=== PATIENT | female | born 1940 | race Caucasian/White ===

== ENCOUNTER 2019-06-20 08:11 | Emergency (ER) | payer MEDICARE, OTHER ==
[2019-06-20 08:22] VITALS: BP 106/51; PULSE 72; RESP 16; TEMP 98.2
--- NOTE | 2019-06-20 08:40 | ED ---
General Adult HPI - General Source: patient, RN notes reviewed Mode of arrival: wheelchair Limitations: no limitations <Antelmo Leonard - Last Filed: 06/20/19 08:40> <Fco Beltran - Last Filed: 06/20/19 11:10> - General Chief complaint: Skin/Abscess/Foreign Body Stated complaint: Abcess on back Time Seen by Provider: 06/20/19 08:21 - History of Present Illness Initial comments: 78-year-old female with a past medical history of breast cancer, diabetes, hypertension presents to the emergency department for a chief complaint of abscess. Patient states that for the past 4 days she has had an abscess on the left side of her upper back. States that her doctor put her on Bactrim which she has been on for about 48 hours. Patient states that when she woke up this morning she noticed it was draining. Patient states that she does have an appointment scheduled with the surgeon in [place] as she is from this area. However since it was draining wanted to be evaluated today. She denies fevers or chills. Denies any constitutional symptoms. Patient is here in this area for holiday. Patient has no other complaints at this time including shortness of breath, chest pain, abdominal pain, nausea or vomiting, headache, or visual changes. (Antelmo Leonard) - Related Data Previous Rx's Medication Instructions Recorded Cephalexin [Keflex] 500 mg PO Q6HR 10 Days #40 cap 06/20/19 Allergies Allergy/AdvReac Type Severity Reaction Status Date / Time ampicillin Allergy Rash/Hives Verified 06/20/19 08:14 Review of Systems ROS Other: All systems not noted in ROS Statement are negative. <Antelmo Leonard - Last Filed: 06/20/19 08:40> ROS Other: All systems not noted in ROS Statement are negative. <Fco Beltran - Last Filed: 06/20/19 11:10> ROS Statement: Those systems with pertinent positive or pertinent negative responses have been documented in the HPI. Past Medical History Past Medical History: Cancer, Diabetes Mellitus, Hypertension, Pneumonia Additional Past Medical History / Comment(s): Left breast History of Any Multi-Drug Resistant Organisms: None Reported Past Surgical History: Adenoidectomy, Breast Surgery, Hysterectomy, Orthopedic Surgery, Tonsillectomy Additional Past Surgical History / Comment(s): partial hysterectomy Past Psychological History: No Psychological Hx Reported Smoking Status: Never smoker Past Alcohol Use History: None Reported Past Drug Use History: None Reported <Antelmo Leonard - Last Filed: 06/20/19 08:40> General Exam Limitations: no limitations General appearance: alert, in no apparent distress Head exam: Present: atraumatic, normocephalic, normal inspection Eye exam: Present: normal appearance, PERRL, EOMI. Absent: scleral icterus, conjunctival injection, periorbital swelling ENT exam: Present: normal exam, mucous membranes moist Neck exam: Present: normal inspection, full ROM. Absent: tenderness, meningismus, lymphadenopathy Respiratory exam: Present: normal lung sounds bilaterally. Absent: respiratory distress, wheezes, rales, rhonchi, stridor Cardiovascular Exam: Present: regular rate, normal rhythm, normal heart sounds. Absent: systolic murmur, diastolic murmur, rubs, gallop, clicks GI/Abdominal exam: Present: soft, normal bowel sounds. Absent: distended, tenderness, guarding, rebound, rigid Back exam: Present: other (patient has a 4 cm x 4 cm abscess on L upper back, this does have mild surrounding erythema. significant amount of purulent drainage expelled.) <Antelmo Leonard - Last Filed: 06/20/19 08:40> Course <Fco Beltran - Last Filed: 06/20/19 11:10> Vital Signs 06/20/19 06/20/19 08:13 08:51 Temperature 98.2 F 98.2 F Pulse Rate 72 72 Respiratory 16 16 Rate Blood Pressure 106/51 106/51 O2 Sat by Pulse 96 96 Oximetry - Reevaluation(s) Reevaluation #1: 06/20/19 11:09 PA supervision: I personally did evaluate this case with the physician team assistant. She did have a abscess on the left side of her back which was drained in the emergency department. She will be following up with her doctor. I do agree with the assessment and plan. (Fco Beltran) Medical Decision Making <Antelmo Leonard - Last Filed: 06/20/19 08:40> - Medical Decision Making Abscess left upper back noted. Patient has been on Bactrim for about 2 days. I did apply pressure to the abscess in a significant amount of purulent drainage was expelled. Culture pending. She'll also be started on Keflex as she does have some erythema surrounding the abscess for possible cellulitic infection. Patient does not have any fevers or constitutional symptoms. Patient is here for vacation for the ving. She is following with her primary care provider through [place] for this. I will forward the culture results to this physician. She is also following up with the surgeon in this area. I did discuss continuing to keep this appointment has been may want to biopsy this area. Discussed that if she has any worsening symptoms including fevers or constitutional symptoms she is to return to the emergency department. (Antelmo Leonard) Disposition Is patient prescribed a controlled substance at d/c from ED?: No Time of Disposition: 08:37 <Antelmo Leonard - Last Filed: 06/20/19 08:40> <Fco Beltran - Last Filed: 06/20/19 11:10> Clinical Impression: Abscess Disposition: HOME SELF-CARE Condition: Good Instructions (If sedation given, give patient instructions): Abscess (ED) Additional Instructions: Please take Keflex in addition to Bactrim. Keep warm compresses on the area. As discussed we did obtain a culture here today. Please follow-up with primary care in 1-2 days for recheck. Follow-up with surgeon at your scheduled appointment as well. Return to the emergency department if you have any w orsening symptoms or fevers Prescriptions: Cephalexin [Keflex] 500 mg PO Q6HR 10 Days #40 cap Referrals: Nonstaff,Physician [Primary Care Provider] - 1-2 days
== END 2019-06-20 08:51 | disposition home or self-care (01) ==
LOC: EC 08:11
DX: L02.212 Cutaneous abscess of back [any part, except buttock and flank] (principal); Z88.0 Allergy status to penicillin; Z85.3 Personal history of malignant neoplasm of breast; Z98.890 Other specified postprocedural states
CPT/HCPCS: 87070; 87205; 99283

== ENCOUNTER → 2019-12-10 | Outpatient (CLI) | payer MEDICARE, OTHER ==
[2019-12-10 11:24] LABS: HGB 13.2 gm/dL (11.4-16.0); MCH 30.2 pg (25.0-35.0); MCHC 32.9 g/dL (31.0-37.0); MCV 91.8 fL (80.0-100.0); Mean Platelet Volume 7.4; Platelet Count 353 k/uL (150-450); RBC 4.36 m/uL (3.80-5.40); RDW 13.6 % (11.5-15.5); WBC 6.6 k/uL (3.8-10.6)
[2019-12-10 11:46] LABS: ALT 15 U/L (4-34); AST 23 U/L (14-36); African American GFR (CKD) >90 (>60 ml/min/1.73 sqM); Albumin 4.1 g/dL (3.5-5.0); Alkaline Phosphatase 62 U/L (38-126); Anion Gap 11 mmol/L; Blood Urea Nitrogen 18 mg/dL (7-17); Carbon Dioxide 29 mmol/L (22-30); Chloride 104 mmol/L (98-107); Glucose 157 mg/dL (74-99); Non-African American GFR(CKD) 82 (>60 ml/min/1.73 sqM); Potassium 3.8 mmol/L (3.5-5.1); Sodium 144 mmol/L (137-145); Total Bilirubin 0.9 mg/dL (0.2-1.3); Total Protein 7.1 g/dL (6.3-8.2)
[2019-12-10 12:33] LABS: Partial Thromboplastin Time 25.9 sec (22.0-30.0); Prothrombin Time 10.3 sec (9.0-12.0)
== END | disposition home or self-care (01) ==
LOC: LABPAT 10:00
PROVIDERS: ATTEND Orthopaedic Surgery
DX: Z01.818 Encounter for other preprocedural examination (principal); Z01.812 Encounter for preprocedural laboratory examination; Z11.59 Encounter for screening for other viral diseases
CPT/HCPCS: 36415; 80053; 85027; 85610; 85730; 86850; 86900; 86901; 87070; 87635

== ENCOUNTER 2019-12-13 11:09 | Day surgery (SDC) | payer MEDICARE, OTHER ==
[2019-12-09 12:05] VITALS: BMI 27.6
[~2019-12-13 11:09] MED LIST: ACETAMINOPHEN TAB 500 MG TAB PO ONE; GABAPENTIN 300 MG CAP PO ONE; MELOXICAM 7.5 MG TAB PO ONE; TRANEXAMIC ACID 1,000 MG in SODIUM CHLORIDE 0.9% 100 ML IVPB ONE
[2019-12-13] MEDS ORDERED: LACTATED RINGERS 1,000 ML IV ONE (11:42)
[2019-12-13] MEDS ORDERED: ONDANSETRON 4 MG/2 ML VIAL IVP ONE (12:06)
[2019-12-13] MEDS ORDERED: DEXAMETHASONE SOD PHOS (MDV) 100 MG/10 ML VIAL IVP ONE (12:07)
[2019-12-13 12:13] LABS: Glucose,Whole Blood 75 mg/dL (75-99)
[2019-12-13] MEDS ORDERED: HYDROcodone/APAP 7.5-325MG 1 EACH TAB PO PRN ×2 (13:17)
[2019-12-13] MEDS ORDERED: ONDANSETRON 4 MG/2 ML VIAL IVP PRN (13:17)
[2019-12-13] MEDS ORDERED: NALOXONE 0.4 MG/ML 1 ML VIAL IV PRN (13:17)
[2019-12-13] MEDS ORDERED: HYDROmorphone 0.5 MG/0.5 ML SYRINGE IVP PRN ×3 (13:17)
[2019-12-13] MEDS ORDERED: ACETAMINOPHEN TAB 325 MG TAB PO PRN (13:17)
[2019-12-13] MEDS ORDERED: MAGNESIUM HYDROXIDE 2,400 MG/10 ML CUP PO PRN (13:17)
[2019-12-13] MEDS ORDERED: traMADol 50 MG TAB PO PRN (13:17)
[2019-12-13] MEDS ORDERED: DIAZEPAM 5 MG TAB PO PRN (13:17)
[2019-12-13] MEDS ORDERED: TEMAZEPAM 15 MG CAP PO PRN (13:17)
[2019-12-13] MEDS ORDERED: fentaNYL (PF) 50 MCG/ML 2 ML AMP ONE (13:34)
[2019-12-13] MEDS ORDERED: KETAMINE 10 MG/ML 20 ML VIAL ONE (13:34)
[2019-12-13] MEDS ORDERED: TRANEXAMIC ACID 1,000 MG/10 ML VIAL ONE (13:34)
[2019-12-13] MEDS ORDERED: SODIUM CHLORIDE 0.9% IRRIG 1,000 ML BTL IRRIGATION ONE (13:34)
[2019-12-13] MEDS ORDERED: HEPARIN SODIUM,PORCINE 10,000 UNIT/ML 1 ML VIAL ONE (13:34)
[2019-12-13] MEDS ORDERED: PROPOFOL 10 MG/ML 20 ML VIAL IV ONE (13:34)
[2019-12-13] MEDS ORDERED: MIDAZOLAM 2 MG/2 ML VIAL ONE (13:34)
[2019-12-13] MEDS ORDERED: SODIUM CHLORIDE 0.9% 100 ML BAG ONE (13:34)
[2019-12-13] MEDS: ROPIVACAINE 246.25 MG, EPINEPHrine 0.5 MG, KETOROLAC 30 MG, cloNIDine HCL/PF 80 MCG, WA... MISCELLANE ONE ×10 (14:03→14:46)
[2019-12-13] MEDS ORDERED: ceFAZolin 3,000 MG in SODIUM CHLORIDE 0.9% IRRIGATIO 3,000 ML IRRIGATION ONE (14:04)
--- NOTE | 2019-12-13 15:01 | P.OP ---
Date of Procedure: 12/13/19 Preoperative Diagnosis: Severe osteoarthritis right hip Postoperative Diagnosis: Severe osteoarthritis right hip Procedure(s) Performed: Right total hip arthroplasty with a direct anterior approach Implants: Robin and nephew Polarstem size 5 standard Robin & Nephew R3, 3 hole acetabular shell, 48 mm Robin & Nephew reflection 6.5 mm cancellus screw, 20 mm 2 Robin & Nephew R3, XLPE 20 acetabular liner Robin & Nephew Oxinium femoral head 32 m, +0 All components were press-fit. The articulation is Oxinium on polyethylene. Anesthesia: spinal Surgeon: Garret Corrales Hide Inspector #1: Shravan Siu Estimated Blood Loss (ml): 120 (52 mL returned with Cell Saver) Pathology: other (Femoral head) Condition: stable Disposition: PACU Indications for Procedure: After failure of conservative treatment we discussed the surgical and nonsurgical treatment options at length. Patient wishes to proceed with a total hip arthroplasty with a direct anterior approach. Complications specific to this procedure were discussed at length, including but not limited to infection, leg length discrepancy, dislocation, and nerve injury. Covid-19 was also discussed at length with the patient, and they are aware of the current policies and procedures. The patient was given the option of delaying surgery, but they elect to proceed knowing these risks. Patient is aware of all these complications and informed consent was obtained Operative Findings: The operative findings are consistent with severe osteoarthritis the right hip Description of Procedure: Patient was seen and evaluated in the preoperative area, consent was reviewed, and the surgical site was marked with a skin marker. Patient was then brought to the operating room and given prophylactic antibiotics intravenously. 1 g of Tranexamic acid was also given. A spinal anesthetic was administered by the anesthesia department. The patient was then placed on the [place] table with the bony prominences well-padded. The hip area was then prepped and draped in usual sterile fashion. A universal timeout was then performed, which confirmed the patient's name, surgical site, ALLERGIES, and procedure being performed. Next the incision site was located at 1 cm distal and 1 cm lateral to the anterior superior iliac spine. The skin and subcutaneous tissues were sharply incised. Incision was carefully dissected down to the fascia overlying the tensor fascia ruth muscle. This fascia was then incised in line with the incision. Next, using blunt finger dissection, the tensor fascia ruth muscle was dissected off its investing fascia. The muscle was then carefully retracted laterally with a cobra retractor over the lateral neck of the femur. Next, the circumflex vessels were identified and cauterized using the AquaMantis device. The anterior hip capsule was then exposed. The capsule was then opened and an inverted T fashion. Cobra retractors were then placed intracapsularly. The proximal femur was then visualized. The femoral neck was then osteotomized appropriate level above the lesser trochanter. Small amount of traction was placed with the [place] table. A small wedge of bone was then removed from the remaining femoral head. Next, using a corkscrew femoral head was easily removed from the acetabulum. On gross visual inspection, the femoral head had complete loss of articular cartilage in multiple periarticular osteophytes. Attention was then turned to the acetabulum. the acetabulum was exposed and any remaining labrum was excised. Sequential reaming of the acetabulum was performed using fluoroscopic guidance. When the appropriate size was reached, a trial was then placed. The position and fit of the trial was checked with fluoroscopy. The trial was then removed. Then, using fluoroscopic guidance, the final implant was impacted at 20 of anteversion and 40 of abduction, and fully seated in the acetabulum. 2 screws were then placed in the acetabulum. Again fluoroscopy was used to check position of the screws. Next, the liner was then impacted, with a 20 elevated liner located in the anterior superior quadrant. Component locking was confirmed. Attention was then directed to the femur. With the aid of the [place] table, the femur was externally rotated to approximately 130, extended, and abducted under the opposite leg. A side hook was then placed under the proximal femur, and the side hook elevator was used to elevate the proximal femur. Retractors were then placed. A capsular release was performed, as well as a release of the conjoined tendon, which afforded excellent visualization of the proximal femur. Next, a box osteotome was used to lateralize the proximal femur. A baggage handling supervisor was then used to locate the femoral canal. Sequential broaching was then performed with appropriate size which afforded excellent fixation in the proximal femur. A trial was then placed with appropriate head and neck, and the hip was gently reduced with the aid of the [place] table. Fluoroscopy was then used to check position of the components, as well as to ensure equal leg lengths. The hip was then gently dislocated and the trials were then removed. Final implants were then impacted and the hip was again reduced. Final fluoroscopic x-rays confirmed that the components were in anatomic position, as well as equal leg lengths. The hip was also taken through range of motion, and found to be stable. The hip was then copiously irrigated with antibiotic solution with pulsatile lavage. The hip was then irrigated with Irrisept solution. The soft tissues were then injected with a ropivacaine solution, which consisted of 246.25 mg of ropivacaine, 0.5 mg of epinephrine, 30 mg of Toradol, 80 g of clonidine, and 48.45 mL of sterile water, for a total of 100 mL of fluid injected. A second dose of 1 g of Tranexamic acid was also given. the fascia was then closed with 2-0 strata fix suture. The subcutaneous tissue was closed with 3-0 Vicryl. The subcuticular tissue was closed with 3-0 strata fix suture. The skin was then closed with Dermabond glue and a sterile silver dressing. The patient was then transferred to the recovery room in stable condition. The day care assistant CHRISTOPHER Somers was required due to the complexity of surgery, and the need for skilled certified surgical first assistant for positioning, draping, exposure, retraction, and closure of the wound.
--- NOTE | 2019-12-13 15:36 | XR ---
EXAMINATION TYPE: XR Hip Limited RT, FL guidance operating room DATE OF EXAM: 12/13/2019 CLINICAL HISTORY: Fluoroscopic documentation during right hip arthroplasty. TECHNIQUE: Fluoroscopy. COMPARISON: None. FINDINGS: Fluoroscopic guidance was provided during procedure performed by Dr. Corrales. A total of 58 seconds of fluoroscopic time was utilized during the procedure and with spot image was acquired d uring right hip arthroplasty. IMPRESSION: As Above.
--- NOTE | 2019-12-13 16:01 | XR ---
EXAMINATION TYPE: XR Hip Limited RT DATE OF EXAM: 12/13/2019 CLINICAL HISTORY: Right hip pain and osteoarthritis. TECHNIQUE: Single AP portable view of right hip is obtained immediately postoperatively. COMPARISON: None. FINDINGS: Metallic hardware from right hip arthroplasty is seen and appears satisfactory in alignment and position. There is evidence of recent surgery with subcutaneous gas noted laterally. IMPRESSION: Metallic hardware from right hip arthroplasty is satisfactory in position.
[2019-12-13] MEDS: LACTATED RINGERS 1,000 ML IV SCH (16:32)
[2019-12-13 16:58] LABS: Glucose,Whole Blood 154 mg/dL (75-99)
[2019-12-13] MEDS: INSULIN ASPART (NovoLOG) 100 UNIT/ML VIAL SQ SCH ×2 (17:12→21:28)
[2019-12-13 20:57] LABS: Glucose,Whole Blood 272 mg/dL (75-99)
[2019-12-13] MEDS ORDERED: SENNOSIDES-DOCUSATE SODIUM 1 EACH TAB PO SCH (21:00)
[2019-12-13] MEDS: ASPIRIN 325 MG TAB PO SCH (21:25)
[2019-12-13] MEDS: CALCIUM CARB-VIT D 500MG-200UN 1 EACH TAB PO SCH (21:25)
[2019-12-13] MEDS: GABAPENTIN 300 MG CAP PO SCH (21:25)
--- NOTE | 2019-12-13 23:46 | CONS ---
CONSULTATION I am covering for Dr. Grande. DATE OF SERVICE: 12/13/2019 REASON FOR CONSULTATION: Advice regarding diabetes and other multiple medical issues requested by Dr. Corrales. HISTORY OF PRESENT ILLNESS: This 79-year-old woman with a past medical history of multiple medical problems including diabetes, hypertension, history of pneumonia, history of left breast cancer, history of breast surgery, adenoidectomy, being followed by Dr. Grande in the outpatient setting, was living in [facility]. The patient underwent right total hip joint arthroplasty with direct anterior approach for severe DJD by Dr. Corrales. Patient being closely monitored. There is no history of fever, rigors or chills. No history of headache, loss of consciousness or seizures. Blood sugars fluctuated anywhere from 115-158 according to her at home during the past 2 weeks and the sugar has been 76 today. There is no history of fever, rigors or chills. PAST MEDICAL: Diabetes type 2, hypertension, history of pneumonia, left breast cancer. MEDICATIONS: Home medications are: 1. Glipizide metformin 2.5/500 1 p.o. daily. 2. Vitamin B complex 1 p.o. daily. 3. KCl 10 mEq p.o. q.a.m. 4. Fish oil 1 p.o. daily. 5. Multivitamins 1 p.o. daily. 6. Metinex 2 mg p.o. b.i.d. 7. Zestoretic 1 tablet p.o. daily. 8. Glucosamine 1 tablet p.o. b.i.d. 9. Neurontin 300 mg p.o. b.i.d. 10.Calcium with vitamin D 1 p.o. b.i.d. 11.Vitamin C 500 mg p.o. daily. 12.[place] 7.5 mg 1-2 tablets q.6h p.r.n. 13.Aspirin 320 mg p.o. b.i.d. ALLERGIES: BEE VENOM AND AMPICILLIN. FAMILY HISTORY: No history of heart disease or strokes in the family. SOCIAL HISTORY: No history of smoking or alcohol intake. REVIEW OF SYSTEMS: ENT: Diminished vision. Diminished hearing. Cardiovascular is no angina or palpitations. RESPIRATORY: No cough. GI no nausea or vomiting. no dysuria. NERVOUS SYSTEM: No numbness or weakness. ALLERGY/IMMUNOLOGY: No asthma or hayfever. MUSCULOSKELETAL as mentioned earlier. HEMATOLOGY/ONCOLOGY: No history of anemia. ENDOCRINE: Diabetes. CONSTITUTIONAL: As mentioned earlier. DERMATOLOGY negative. RHEUMATOLOGY: Negative. PSYCHIATRIC: As mentioned earlier. PHYSICAL EXAMINATION: Alert and oriented x3. Pulse is 89. Blood pressure 140/87, respirations 16, temperature 97.8, pulse ox 94% on room air. HEENT: Conjunctivae normal. Oral mucosa moist. NECK is no jugular venous distention. No carotid bruit. No lymph node enlargement. CARDIOVASCULAR system: S1, S2 muffled. No S3, no S4. RESPIRATION: Breath sounds diminished. There are no rhonchi. No crackles. ABDOMEN: Soft, obese, nontender. No mass. LEGS status post right hip arthroplasty. NERVOUS SYSTEM: Higher functions as mentioned. Moves all 4 limbs. No focal motor or sensory deficits. LYMPHATICS: No lymph nodes palpable in the neck, axillae or groin. SKIN: No ulcer, rash or bleeding. JOINTS: No active deforming arthropathy. LABS: Glucose 75, 154 and preop labs CBC within normal limits. Coags are normal. Chemistry also appears reviewed. ASSESSMENT: 1. Status post right total hip joint arthroplasty for severe degenerative joint disease. 2. Diabetes type 2. 3. Hypertension. 4. History of pneumonia. 5. History of left breast cancer. 6. History of adenoidectomy. 7. FULL CODE. RECOMMENDATIONS AND DISCUSSION: This 79-year-old woman who presented with multiple complex medical issues, at this time I recommend to continue current medications. Resume the home medication. Accu-Cheks AC and insulin scale and DVT prophylaxis, proton pump inhibitors. Otherwise pain management per Orthopedic surgery. We will follow the patient closely with you. Patient may be asked to follow up with Dr. Grande closely after discharge. Thank you Dr. Corrales for letting us participate in the care of this patient. 1. History of. MMODL / IJN: [id number] /
[2019-12-14] MEDS: LACTATED RINGERS 1,000 ML IV SCH (05:20)
[2019-12-14 07:12] LABS: Basophils % (A) 0 %; Eosinophils # (A) 0.1 k/uL (0-0.7); Eosinophils % (A) 0 %; HCT 35.2 % (34.0-46.0); HGB 11.5 gm/dL (11.4-16.0); Lymphocytes # (A) 1.1 k/uL (1.0-4.8); Lymphocytes % (A) 6 %; MCHC 32.7 g/dL (31.0-37.0); MCV 91.8 fL (80.0-100.0); Mean Platelet Volume 7.5; Monocytes # (A) 1.3 k/uL (0-1.0); Monocytes % (A) 8 %; Neutrophils # (A) 14.6 k/uL (1.3-7.7); Neutrophils % (A) 85 %; Platelet Count 314 k/uL (150-450); RBC 3.84 m/uL (3.80-5.40); RDW 13.1 % (11.5-15.5); WBC 17.1 k/uL (3.8-10.6)
[2019-12-14 07:14] LABS: Glucose,Whole Blood 163 mg/dL (75-99)
[2019-12-14] MEDS ORDERED: PANTOPRAZOLE 40 MG TABLET PO SCH (07:30)
[2019-12-14] MEDS: ASPIRIN 325 MG TAB PO SCH (07:39)
[2019-12-14] MEDS: GABAPENTIN 300 MG CAP PO SCH (07:39)
[2019-12-14] MEDS: CALCIUM CARB-VIT D 500MG-200UN 1 EACH TAB PO SCH (07:39)
[2019-12-14] MEDS: INSULIN ASPART (NovoLOG) 100 UNIT/ML VIAL SQ SCH ×2 (07:40→12:07)
[2019-12-14] MEDS ORDERED: LISINOPRIL-HCTZ 20-25 MG 1 EACH TAB PO SCH (09:00)
[2019-12-14] MEDS ORDERED: NON FORMULARY DRUG (Vitamin B Complex [Vitamin B Complex] 1 EACH) PO SCH (09:00)
[2019-12-14] MEDS ORDERED: metFORMIN 500 MG TAB PO SCH (09:00)
[2019-12-14] MEDS ORDERED: POTASSIUM CHLORIDE ER 10 MEQ TAB.ER.PRT PO SCH (09:00)
--- NOTE | 2019-12-14 11:03 | P.DS ---
Providers Expected date of discharge: 12/14/19 Attending physician: Garret Corrales Consults: 12/13/19 13:17 Consult Physician Routine Consulting Provider: Marcelino Grande Consult Reason/Comments: post op med management Do you want consulting provider notified?: Yes Primary care physician: Marcelino Grande - Discharge Diagnosis(es) (1) S/P total hip arthroplasty Patient was admitted to the OR on 12/13/2019 to undergo a right total hip arthroplasty. She had failed conservative measures as an outpatient and desired to proceed with elective surgery after given informed consent. She underwent the above procedure which she tolerated well without complication. Postoperative hospital course has remained without complication. On day of discharge she is afebrile, vital signs stable, labs within acceptable ranges, tolerating by mouth meds and diet, voiding without difficulty, positive flatus, denies abdominal pain or calf pain, pain is controlled on oral pain medication and has no new complaints. Wound is benign, neurovascular status is intact, calf is soft and nontender, abdomen soft and nontender. Review of systems is negative for numbness, tingling, fever, chills, chest pain, shortness of breath, nausea, vomiting, dizziness, headaches, slurred speech or other Current Visit: Yes Status: Acute Priority: Medium Procedures: RTHA Patient Condition at Discharge: Good Plan - Discharge Summary Discharge Rx Participant: Yes New Discharge Prescriptions: New Aspirin 325 mg PO BID #60 tab HYDROcodone/APAP 7.5-325MG [Dora 7.5-325] 1 - 2 each PO Q6HR PRN #56 tab PRN Reason: Pain No Action [place]-3 Fatty Acids/Fish Oil [Fish Oil 1,000 mg Softgel] 1 each PO DAILY Glucos Sul 2Kcl/MSM/Chond/C/Mn [Glucosamine Chondroitin Cap] 1 each PO BID Vitamin B Complex 1 each PO DAILY Calcium Carbonate/Vitamin D3 [Calcium 600-D3 20Mcg(800 Unit)] 1 each PO BID Ascorbic Acid [Vitamin C] 500 mg PO DAILY glipiZIDE/METFORMIN HCL [glipiZIDE/METFORMIN HCL 2.5-500 mg] 1 each PO DAILY Lisinopril-Hctz 20-25 mg [Zestoretic 20-25] 1 tab PO DAILY Potassium Chloride 10 meq PO QAM Gabapentin [Neurontin] 300 mg PO BID Multivit-Min/Iron/Folic/Lutein [Centrum Silver Women Tablet] 1 each PO DAILY Metanx 2 mg PO BID Discharge Medication List Ascorbic Acid [Vitamin C] 500 mg PO DAILY 12/09/19 [History] Calcium Carbonate/Vitamin D3 [Calcium 600-D3 20Mcg(800 Unit)] 1 each PO BID 12/09/19 [History] Gabapentin [Neurontin] 300 mg PO BID 12/09/19 [History] Glucos Sul 2Kcl/MSM/Chond/C/Mn [Glucosamine Chondroitin Cap] 1 each PO BID 12/09/19 [History] Lisinopril-Hctz 20-25 mg [Zestoretic 20-25] 1 tab PO DAILY 12/09/19 [History] Metanx 2 mg PO BID 12/09/19 [History] Multivit-Min/Iron/Folic/Lutein [Centrum Silver Women Tablet] 1 each PO DAILY 12/09/19 [History] [place]-3 Fatty Acids/Fish Oil [Fish Oil 1,000 mg Softgel] 1 each PO DAILY 12/09/19 [History] Potassium Chloride 10 meq PO QAM 12/09/19 [History] Vitamin B Complex 1 each PO DAILY 12/09/19 [History] glipiZIDE/METFORMIN HCL [glipiZIDE/METFORMIN HCL 2.5-500 mg] 1 each PO DAILY 12/09/19 [History] Aspirin 325 mg PO BID #60 tab 12/13/19 [Rx] HYDROcodone/APAP 7.5-325MG [Dora 7.5-325] 1 - 2 each PO Q6HR PRN #56 tab 12/13/19 [Rx] Follow up Appointment(s)/Referral(s): [facility] [NON-STAFF] - Garret Corrales DO [Doctor of Osteopathic Medicine] - 10 Days Activity/Diet/Wound Care/Special Instructions: Keep wound clean and dry Take meds as directed Follow-up with Dr. Corrales in office Weight bear as tolerated May shower in 3 days if no bleeding Discharge Disposition: HOME WITH HOME HEALTH SERVICES
[2019-12-14 11:31] LABS: Glucose,Whole Blood 112 mg/dL (75-99)
[2019-12-14 11:47] VITALS: BP 92/46; PULSE 72; RESP 17; TEMP 98.4
[2019-12-14] MEDS ORDERED: MULTIVITAMINS, THERA 1 EACH TAB PO SCH (12:00)
--- NOTE | 2019-12-14 18:26 | PN ---
PROGRESS NOTE DATE OF SERVICE: 12/14/2019 I am covering for Dr. Grande. This 79-year-old woman was admitted with right hip arthroplasty, is improving significantly. No chest pain. No palpitations. No fever. No shortness of breath. PHYSICAL EXAMINATION: Alert and oriented x3. Pulse 72, blood pressure 92/46, respiration 17, temperature 98.4, pulse ox 98% on room air. HEENT: Conjunctivae normal. Oral mucosa moist. NECK: No jugular venous distention. No lymph node enlargement. CARDIOVASCULAR: S1, S2. RESPIRATORY: Diminished breath sounds at the bases. Bilateral scattered rhonchi and crackles. ABDOMEN: Soft, nontender. LEGS: Status post right hip arthroplasty. NERVOUS SYSTEM: No focal deficits. LABS: WBC 17.2, hemoglobin 11.4. ASSESSMENT: 1. Status post right total knee arthroplasty for severe degenerative joint disease. 2. Diabetes type 2. 3. Hypertension. 4. History of pneumonia. 5. History of left breast cancer. 6. History of adenoidectomy. 7. FULL CODE. RECOMMENDATIONS AND DISCUSSION: Recommend to continue current medications, continue symptomatic treatment. Orthopedic Surgery is planning discharge for the patient so I would recommend resume the home medications, follow up with Dr. Grande in 1-2 weeks or p.r.n. The rest of the recommendations per Orthopedic surgery. Further recommendations to follow. MMODL / IJN: [id number] /
== END 2019-12-14 15:08 | disposition home health service (06) ==
LOC: OR 11:09 → 5NMEDONC 15:36 → OR 12-14 15:08
PROVIDERS: ATTEND Orthopaedic Surgery
DX: M16.11 Unilateral primary osteoarthritis, right hip (principal); I10 Essential (primary) hypertension; E10.9 Type 1 diabetes mellitus without complications; R26.81 Unsteadiness on feet; Z97.3 Presence of spectacles and contact lenses; Z85.3 Personal history of malignant neoplasm of breast; Z88.0 Allergy status to penicillin; Z98.49 Cataract extraction status, unspecified eye; Z96.651 Presence of right artificial knee joint; Z98.890 Other specified postprocedural states; Z87.01 Personal history of pneumonia (recurrent); Z82.49 Family history of ischemic heart disease and other diseases of the circulatory system; Z79.84 Long term (current) use of oral hypoglycemic drugs; Z79.899 Other long term (current) drug therapy
CPT/HCPCS: 97110; 97161; 85025; 73501; 27130; J0171; J0690 ×3; J2405; J1885; J1100; J2795; J0735; J1170; 36415; 86850; 86891; 86900; 86901

== ENCOUNTER 2020-06-19 05:53 | Inpatient (IN) | payer MEDICARE, OTHER ==
[2020-06-19] MEDS ORDERED: SODIUM CHLORIDE 0.9% 500 ML 500 ML IV STA (06:25)
--- NOTE | 2020-06-19 06:45 | ED ---
General Adult HPI - General Source: patient, EMS, RN notes reviewed Limitations: no limitations <Antelmo Leonard - Last Filed: 06/19/20 09:34> <Edita Koroma - Last Filed: 06/24/20 12:17> - General Chief complaint: Shortness of Breath Stated complaint: SOB, covid + Time Seen by Provider: 06/19/20 06:05 - History of Present Illness Initial comments: 79-year-old female with a past medical history of hypertension, diabetes mellitus, PNA presents to the emergency room for a chief complaint of shortness of breath. Patient reports that she was told by her friends that care for her that she looks more short of breath. Patient does not necessarily feel short of breath. Patient is COVID positive, and was tested 7 days ago. Patient states she started with a dry cough the day before. States her temperature had gone up to 100 max. Patient states she feels about the same however her friends were concerned she was getting more short of breath so decided to come in and be evaluated. She denies chest pain. Denies any additional fevers. Does admit her cough is still persistent.Patient has no other complaints at this time including chest pain, abdominal pain, nausea or vomiting, headache, or visual changes. (Antelmo Leonard) - Related Data Home Medications Medication Instructions Recorded Confirmed Ascorbic Acid [Vitamin C] 500 mg PO DAILY 12/09/19 06/19/20 Calcium Carbonate/Vitamin D3 1 tab PO BID 12/09/19 06/19/20 [Calcium 600-D3 20Mcg(800 Unit)] Gabapentin [Neurontin] 300 mg PO BID 12/09/19 06/19/20 Glucos Sul 2Kcl/MSM/Chond/C/Mn 1 tab PO BID 12/09/19 06/19/20 [Glucosamine Chondroitin Cap] Multivit-Min/Iron/Folic/Lutein 1 tab PO DAILY 12/09/19 06/19/20 [Centrum Silver Women Tablet] Champion-3 Fatty Acids/Fish Oil [Fish 1 cap PO DAILY 12/09/19 06/19/20 Oil 1,000 mg Softgel] Potassium Chloride 10 meq PO QAM 12/09/19 06/19/20 Vitamin B Complex 1 tab PO DAILY 12/09/19 06/19/20 glipiZIDE/METFORMIN HCL 1 tab PO DAILY 12/09/19 06/19/20 [glipiZIDE/METFORMIN HCL 2.5-500 mg] Metanx Supplement 2 cap PO BID 06/19/20 06/19/20 Previous Rx's Medication Instructions Recorded Atorvastatin [Lipitor] 40 mg PO HS #30 tab 06/23/20 Levofloxacin [Levaquin] 500 mg PO DAILY #7 tab 06/23/20 Metoprolol Tartrate [Lopressor] 12.5 mg PO BID #60 tab 06/23/20 Tamsulosin [Flomax] 0.4 mg PO PC-BRKFST #30 cap.er.24h 06/23/20 Zinc Sulfate [Orazinc] 220 mg PO DAILY 30 Days #30 cap 06/23/20 dexAMETHasone [Hexadrol] 6 mg PO DAILY #18 tab 06/23/20 lisinopriL [Zestril] 5 mg PO DAILY #30 tab 06/23/20 Allergies Allergy/AdvReac Type Severity Reaction Status Date / Time bee venom protein (honey bee) Allergy Severe Swelling Verified 06/19/20 10:31 ampicillin Allergy Rash/Hives Verified 06/19/20 10:31 Review of Systems ROS Other: All systems not noted in ROS Statement are negative. <Antelmo Leonard P - Last Filed: 06/19/20 09:34> ROS Other: All systems not noted in ROS Statement are negative. <Edita Koroma - Last Filed: 06/24/20 12:17> ROS Statement: Those systems with pertinent positive or pertinent negative responses have been documented in the HPI. Past Medical History Past Medical History: Cancer, Diabetes Mellitus, Hypertension, Pneumonia Additional Past Medical History / Comment(s): Left breast History of Any Multi-Drug Resistant Organisms: None Reported Past Surgical History: Adenoidectomy, Breast Surgery, Hysterectomy, Orthopedic Surgery, Tonsillectomy Additional Past Surgical History / Comment(s): partial hysterectomy Past Psychological History: No Psychological Hx Reported Smoking Status: Never smoker Past Alcohol Use History: None Reported Past Drug Use History: None Reported <Antelmo Leonard P - Last Filed: 06/19/20 09:34> General Exam Limitations: no limitations General appearance: alert, in no apparent distress Head exam: Present: atraumatic, normocephalic, normal inspection Eye exam: Present: normal appearance, PERRL, EOMI. Absent: scleral icterus, conjunctival injection, periorbital swelling ENT exam: Present: normal exam, mucous membranes moist Neck exam: Present: normal inspection, full ROM. Absent: tenderness, meningismus, lymphadenopathy Respiratory exam: Present: normal lung sounds bilaterally. Absent: respiratory distress, wheezes, rales, rhonchi, stridor Cardiovascular Exam: Present: regular rate, normal rhythm, normal heart sounds. Absent: systolic murmur, diastolic murmur, rubs, gallop, clicks GI/Abdominal exam: Present: soft, normal bowel sounds. Absent: distended, te nderness, guarding, rebound, rigid <Antelmo Leonard P - Last Filed: 06/19/20 09:34> Course Vital Signs 06/19/20 06/19/20 06/19/20 05:54 06:01 10:00 Temperature 99.1 F Pulse Rate 87 84 Pulse Rate [ Medical Health Researcher ] Respiratory 18 18 18 Rate Blood Pressure 138/94 154/69 Blood Pressure [Right Arm] O2 Sat by Pulse 96 98 Oximetry 06/19/20 06/19/20 06/19/20 11:17 15:34 15:59 Temperature Pulse Rate 82 89 Pulse Rate [ Medical Health Researcher ] Respiratory 16 20 Rate Blood Pressure 111/55 134/89 Blood Pressure [Right Arm] O2 Sat by Pulse 96 96 95 Oximetry 06/19/20 06/19/20 06/19/20 16:00 16:27 16:33 Temperature 99.9 F H 99.9 F H Pulse Rate 93 Pulse Rate [ 91 91 Medical Health Researcher ] Respiratory 18 20 20 Rate Blood Pressure Blood Pressure 138/62 138/62 [Right Arm] O2 Sat by Pulse 93 L 97 97 Oximetry 06/19/20 06/19/20 06/19/20 17:00 18:00 19:00 Temperature Pulse Rate 96 93 96 Pulse Rate [ Medical Health Researcher ] Respiratory 16 18 18 Rate Blood Pressure 132/92 146/79 Blood Pressure [Right Arm] O2 Sat by Pulse 96 97 Oximetry 06/19/20 20:02 Temperature 100.3 F H Pulse Rate Pulse Rate [ Medical Health Researcher ] Respiratory Rate Blood Pressure Blood Pressure [Right Arm] O2 Sat by Pulse Oximetry EKG Findings - EKG Comments: EKG Findings:: Normal sinus rhythm, ventricular rate 80, DC interval 134, QTC 495 <Antelmo Leonard P - Last Filed: 06/19/20 09:34> Medical Decision Making - Lab Data Result diagrams: 06/19/20 06:43 06/19/20 06:43 <Antelmo Leonard - Last Filed: 06/19/20 09:34> - Lab Data Result diagrams: 06/23/20 08:20 06/23/20 08:20 <Edita Koroma - Last Filed: 06/24/20 12:17> - Medical Decision Making Vitals are stable. Patient initially on oxygen however when this was removed she is satting anywhere from 92-97% on room air. Minimal shortness of breath. No chest pain. CBC unremarkable. CMP unremarkable. Troponin is elevated at 3.9. EKG nonischemic and patient deny any ACS symptoms. Chest CTA no evidence for acute pulmonary embolism. There is dependent atelectasis bilateral lower lungs suspicious for developing peripheral left lower lobe acute infiltrate would correlate with history of Covid 19 infection. Given positive Covid 19 infection 7 days ago patient was not started on antibiotics at this time. No fever, normal white count, pneumonia is likely viral. Patient will be admitted for cardiology consultation and trending troponin. She was started on low-dose heparin as directed by Dr. Koroma. (Antelmo Leonard) I was available for consultation in the emergency department. The history and physical exam were done by the midlevel provider. I was consulted for this patients care. I reviewed the case with the midlevel provider and based on th eir presentation of the patient, I agree with the assessment, medical decision making and plan of care as documented. Chart was dictated using [employer] dictation software. Attempts were made to correct any dictation errors however some typographical errors may persist. Patient seen during the Covid-19 pandemic. (Edita Koroma) - Lab Data Lab Results 06/19/20 06/19/20 06/19/20 Range/Units 06:43 06:43 06:43 WBC 5.6 (3.8-10.6) k/uL RBC 4.53 (3.80-5.40) m/uL Hgb 13.0 (11.4-16.0) gm/dL Hct 39.6 (34.0-46.0) % MCV 87.4 (80.0-100.0) fL MCH 28.7 (25.0-35.0) pg MCHC 32.8 (31.0-37.0) g/dL RDW 13.9 (11.5-15.5) % Plt Count 321 (150-450) k/uL MPV 7.4 Neutrophils % 65 % Lymphocytes % 20 % Monocytes % 10 % Eosinophils % 1 % Basophils % 1 % Neutrophils # 3.7 (1.3-7.7) k/uL Lymphocytes # 1.2 (1.0-4.8) k/uL Monocytes # 0.6 (0-1.0) k/uL Eosinophils # 0.1 (0-0.7) k/uL Basophils # 0.1 (0-0.2) k/uL PT 10.5 (9.0-12.0) sec INR 1.0 (<1.2) APTT 28.3 (22.0-30.0) sec D-Dimer 0.69 H (<0.60) mg/L FEU Sodium 136 L (137-145) mmol/L Potassium 4.4 (3.5-5.1) mmol/L Chloride 100 (98-107) mmol/L Carbon Dioxide 29 (22-30) mmol/L Anion Gap 7 mmol/L BUN 31 H (7-17) mg/dL Creatinine 0.95 (0.52-1.04) mg/dL Est GFR (CKD-EPI)AfAm 65 (>60 ml/min/1.73 sqM) Est GFR (CKD-EPI)NonAf 57 (>60 ml/min/1.73 sqM) Glucose 126 H (74-99) mg/dL Plasma Lactic Acid Julio (0.7-2.0) mmol/L Calcium 9.4 (8.4-10.2) mg/dL Magnesium 2.0 (1.6-2.3) mg/dL Total Bilirubin 1.3 (0.2-1.3) mg/dL AST 120 H (14-36) U/L ALT 35 H (4-34) U/L Alkaline Phosphatase 42 (38-126) U/L Troponin I (0.000-0.034) ng/mL C-Reactive Protein 33.3 H (<10.0) mg/L Total Protein 7.1 (6.3-8.2) g/dL Albumin 3.8 (3.5-5.0) g/dL 06/19/20 06/19/20 Range/Units 06:43 06:43 WBC (3.8-10.6) k/uL RBC (3.80-5.40) m/uL Hgb (11.4-16.0) gm/dL Hct (34.0-46.0) % MCV (80.0-100.0) fL MCH (25.0-35.0) pg MCHC (31.0-37.0) g/dL RDW (11.5-15.5) % Plt Count (150-450) k/uL MPV Neutrophils % % Lymphocytes % % Monocytes % % Eosinophils % % Basophils % % Neutrophils # (1.3-7.7) k/uL Lymphocytes # (1.0-4.8) k/uL Monocytes # (0-1.0) k/uL Eosinophils # (0-0.7) k/uL Basophils # (0-0.2) k/uL PT (9.0-12.0) sec INR (<1.2) APTT (22.0-30.0) sec D-Dimer (<0.60) mg/L FEU Sodium (137-145) mmol/L Potassium (3.5-5.1) mmol/L Chloride (98-107) mmol/L Carbon Dioxide (22-30) mmol/L Anion Gap mmol/L BUN (7-17) mg/dL Creatinine (0.52-1.04) mg/dL Est GFR (CKD-EPI)AfAm (>60 ml/min/1.73 sqM) Est GFR (CKD-EPI)NonAf (>60 ml/min/1.73 sqM) Glucose (74-99) mg/dL Plasma Lactic Acid Julio 1.4 (0.7-2.0) mmol/L Calcium (8.4-10.2) mg/dL Magnesium (1.6-2.3) mg/dL Total Bilirubin (0.2-1.3) mg/dL AST (14-36) U/L ALT (4-34) U/L Alkaline Phosphatase (38-126) U/L Troponin I 3.920 H* (0.000-0.034) ng/mL C-Reactive Protein (<10.0) mg/L Total Protein (6.3-8.2) g/dL Albumin (3.5-5.0) g/dL Disposition Is patient prescribed a controlled substance at d/c from ED?: No Time of Disposition: 09:35 <Antelmo Leonard - Last Filed: 06/19/20 09:34> <Edita Koroma - Last Filed: 06/24/20 12:17> Clinical Impression: Elevated troponin, Shortness of breath, COVID-19 Disposition: ADMITTED IP TO THIS HOSP Condition: Fair
[2020-06-19 07:06] LABS: Basophils # (A) 0.1 k/uL (0-0.2); Basophils % (A) 1 %; Eosinophils # (A) 0.1 k/uL (0-0.7); Eosinophils % (A) 1 %; HCT 39.6 % (34.0-46.0); Lymphocytes # (A) 1.2 k/uL (1.0-4.8); Lymphocytes % (A) 20 %; MCH 28.7 pg (25.0-35.0); MCHC 32.8 g/dL (31.0-37.0); MCV 87.4 fL (80.0-100.0); Mean Platelet Volume 7.4; Monocytes # (A) 0.6 k/uL (0-1.0); Monocytes % (A) 10 %; Neutrophils # (A) 3.7 k/uL (1.3-7.7); Neutrophils % (A) 65 %; Platelet Count 321 k/uL (150-450); RBC 4.53 m/uL (3.80-5.40); RDW 13.9 % (11.5-15.5); WBC 5.6 k/uL (3.8-10.6)
[2020-06-19 07:20] LABS: Albumin 3.8 g/dL (3.5-5.0); C Reactive Protein 33.3 mg/L (<10.0); Calcium 9.4 mg/dL (8.4-10.2); Total Bilirubin 1.3 mg/dL (0.2-1.3); Total Protein 7.1 g/dL (6.3-8.2)
[2020-06-19 07:38] LABS: Potassium 4.4 mmol/L (3.5-5.1)
--- NOTE | 2020-06-19 07:42 | XR ---
EXAMINATION TYPE: XR chest 1V portable DATE OF EXAM: 06/19/2020 COMPARISON: NONE HISTORY: Shortness of breath. Covid positive TECHNIQUE: Single AP portable frontal upright view of the chest is obtained. FINDINGS: [id number] Reticular interstitial changes bilaterally favor chronic fibrosis. No sita picious focal airspace opacity, pleural effusion, or pneumothorax seen bilaterally. The cardiac silh ouette size is mildly enlarged. The osseous structures are intact. IMPRESSION: Mild cardiomegaly with chronic parenchymal changes, no suspicious focal infiltrate.
[2020-06-19] MEDS ORDERED: ASPIRIN 325 MG TAB PO STA (08:01)
[2020-06-19 08:04] LABS: Partial Thromboplastin Time 28.3 sec (22.0-30.0); Prothrombin Time 10.5 sec (9.0-12.0)
[2020-06-19 08:06] LABS: D-Dimer 0.69 mg/L FEU (<0.60)
--- NOTE | 2020-06-19 09:12 | CT ---
EXAMINATION TYPE: CT chest angio for PE DATE OF EXAM: 06/19/2020 COMPARISON: Chest x-ray earlier today. HISTORY: SOB CT DLP: 448 mGycm Automated exposure control for dose reduction was used. CONTRAST: CT Chest for pulmonary embolism performed with with IV Contrast, patient injected with 90 mL of Isovu e 370. FINDINGS: LUNGS: Elevated left hemidiaphragm with small posterior medial diaphragmatic hernia sagittal image 10 6 for reference. Dependent atelectasis in the bilateral bases. Small focus of groundglass opacity wit h reticulation in the periphery of the left lower lobe. Right lung is clear. No pleural effusion or p neumothorax seen bilaterally. MEDIASTINUM: There is satisfactory enhancement of the pulmonary artery and its branches, there is no CT evidence for pulmonary embolism. Enlarged main pulmonary artery of 3.3 cm axial image 60. There is left hilar adenopathy for reference 1.4 x 1.3 cm lymph node coronal image 110. There is enlarged sub carinal 2.2 x 1.4 cm lymph node axial image 60. Enlarged right hilar lymph nodes axial image 74. Foca l dense coronary artery calcification proximal LAD axial image 71. No cardiomegaly or pericardial eff usion is seen. Satisfactory enhancement of the thoracic aorta without aneurysm or dissection. Mild t o moderate left atrial dilatation. Mild left ventricular dilatation. OTHER: Underlying scoliosis. Exaggerated thoracic kyphosis. Moderate multilevel spurring in the spin e IMPRESSION: 1. No CT evidence for acute pulmonary embolism. 2. Dependent atelectasis bilateral lower lungs. Suspicion for developing peripheral left lower lobe a cute infiltrate would correlate with history of covid 19 infection. Underlying pulmonary artery hyper tension felt present. Abnormal thoracic adenopathy noted. Follow-up is advised.
[2020-06-19] MEDS ORDERED: HEPARIN SODIUM,PORCINE 5,000 UNIT/ML 1 ML VIAL IV PRN (09:17)
[2020-06-19] MEDS ORDERED: HEPARIN SODIUM,PORCINE 5,000 UNIT/ML 1 ML VIAL IV ONE (09:17)
[2020-06-19] MEDS ORDERED: NALOXONE 0.4 MG/ML 1 ML VIAL IV PRN (09:30)
[2020-06-19] MEDS: SODIUM CHLORIDE 0.9% 1,000 ML IV SCH (10:23)
[2020-06-19] MEDS: HEPARIN SOD,PORK IN 0.45% NACL 25,000 UNIT in 0.45% NACL 1 250ML.BAG IV SCH (10:23)
--- NOTE | 2020-06-19 14:19 | P.HPIM ---
History of Present Illness this is a pleasant 79 years old female with multiple medical problems as below including diabetes, hypertension. She is a patient of Dr. Grande. Presents because of dyspnea. Associated with dry cough. Patient felt he had a fever at home. She has a diagnosis of Covid infection about one week ago. Patient with no chest pain patient currently is lying comfortable in bed no respiratory distress. She denies history of smoking vitals are stable, saturating 96% on 2 L oxygen via nasal cannula Labs showing unremarkable CBC, INR, BMP and electrolytes. Liver enzymes slightly elevated with AST 120 and ALT 35. Troponin is elevated at 3.9 and 3.0 EKG showing normal sinus rhythm at [address]-T changes. CTA of the chest: No pulmonary embolism enlarged left hilar lymph node and subcarinal lymph nodes and right hilar lymph nodes. Possible left lower lobe infiltrate In the emergency room patient was started on aspirin, heparin drip and normal saline at 75 mL Review of Systems CONSTITUTIONAL: No fever, no malaise, no fatigue. HEENT: No recent visual problems or hearing problems. Denied any sore throat. CARDIOVASCULAR: No orthopnea, PND, no palpitations, no syncope. PULMONARY: No shortness of breath, no cough, no hemoptysis. GASTROINTESTINAL: No diarrhea, no nausea, no vomiting, no abdominal pain. Normoactive bowel sounds. NEUROLOGICAL: No headaches, no weakness, no numbness. HEMATOLOGICAL: Denies any bleeding or petechiae. GENITOURINARY: Denies any burning micturition, frequency, or urgency. MUSCULOSKELETAL/RHEUMATOLOGICAL: Denies any joint pain, swelling, or any muscle pain. ENDOCRINE: Denies any polyuria or polydipsia. Past Medical History Past Medical History: Cancer, Diabetes Mellitus, Hypertension, Pneumonia Additional Past Medical History / Comment(s): Left breast History of Any Multi-Drug Resistant Organisms: None Reported Past Surgical History: Adenoidectomy, Breast Surgery, Hysterectomy, Orthopedic Surgery, Tonsillectomy Additional Past Surgical History / Comment(s): partial hysterectomy Past Psychological History: No Psychological Hx Reported Smoking Status: Never smoker Past Alcohol Use History: None Reported Past Drug Use History: None Reported Medications and Allergies Home Medications Medication Instructions Recorded Confirmed Type Ascorbic Acid [Vitamin C] 500 mg PO DAILY 12/09/19 06/19/20 History Calcium Carbonate/Vitamin D3 1 tab PO BID 12/09/19 06/19/20 History [Calcium 600-D3 20Mcg(800 Unit)] Gabapentin [Neurontin] 300 mg PO BID 12/09/19 06/19/20 History Glucos Sul 2Kcl/MSM/Chond/C/Mn 1 tab PO BID 12/09/19 06/19/20 History [Glucosamine Chondroitin Cap] Lisinopril-Hctz 20-25 mg 1 tab PO DAILY 12/09/19 06/19/20 History [Zestoretic 20-25] Multivit-Min/Iron/Folic/Lutein 1 tab PO DAILY 12/09/19 06/19/20 History [Centrum Silver Women Tablet] Tiona-3 Fatty Acids/Fish Oil [Fish 1 cap PO DAILY 12/09/19 06/19/20 History Oil 1,000 mg Softgel] Potassium Chloride 10 meq PO QAM 12/09/19 06/19/20 History Vitamin B Complex 1 tab PO DAILY 12/09/19 06/19/20 History glipiZIDE/METFORMIN HCL 1 tab PO DAILY 12/09/19 06/19/20 History [glipiZIDE/METFORMIN HCL 2.5-500 mg] Metanx Supplement 2 cap PO BID 06/19/20 06/19/20 History Allergies Allergy/AdvReac Type Severity Reaction Status Date / Time bee venom protein (honey bee) Allergy Severe Swelling Verified 06/19/20 10:31 ampicillin Allergy Rash/Hives Verified 06/19/20 10:31 Physical Exam Vitals: Vital Signs Temp Pulse Resp BP Pulse Ox 06/19/20 11:17 82 16 111/55 96 06/19/20 10:00 84 18 154/69 98 06/19/20 06:01 18 06/19/20 05:54 99.1 F 87 18 138/94 96 Intake and Output 06/18/20 06/19/20 06/19/20 22:59 06:59 14:59 Other: Weight 86.183 kg GENERAL: The patient is alert and oriented x3, not in any acute distress. Well developed, well nourished. HEENT: Pupils are round and equally reacting to light. EOMI. No scleral icterus. No conjunctival pallor. Normocephalic, atraumatic. No pharyngeal erythema. No thyromegaly. CARDIOVASCULAR: S1 and S2 present. No murmurs, rubs, or gallops. PULMONARY: Chest is clear to auscultation, no wheezing or crackles. ABDOMEN: Soft, nontender, nondistended, normoactive bowel sounds. No palpable organomegaly. MUSCULOSKELETAL: No joint swelling or deformity. EXTREMITIES: No cyanosis, clubbing, or pedal edema. NEUROLOGICAL: Gross neurological examination did not reveal any focal deficits. SKIN: No rashes. No petechiae Results CBC & Chem 7: 06/19/20 06:43 06/19/20 06:43 Labs: Abnormal Lab Results - Last 24 Hours (Table) 06/19/20 06/19/20 06/19/20 Range/Units 06:43 06:43 06:43 D-Dimer 0.69 H (<0.60) mg/L FEU Sodium 136 L (137-145) mmol/L BUN 31 H (7-17) mg/dL Glucose 126 H (74-99) mg/dL AST 120 H (14-36) U/L ALT 35 H (4-34) U/L Troponin I 3.920 H* (0.000-0.034) ng/mL C-Reactive Protein 33.3 H (<10.0) mg/L 06/19/20 Range/Units 11:12 D-Dimer (<0.60) mg/L FEU Sodium (137-145) mmol/L BUN (7-17) mg/dL Glucose (74-99) mg/dL AST (14-36) U/L ALT (4-34) U/L Troponin I 3.090 H* (0.000-0.034) ng/mL C-Reactive Protein (<10.0) mg/L Assessment and Plan Assessment: Left lower lobe pneumonia, could be related to call with infection with left hilar lymphadenopathy Elevated troponin, rule out cardiac causes and disease Mildly elevated liver enzymes Diabetes mellitus Hypertension Plan: This is a pleasant 79 years old female who presents with left lower lobe pneumonia. With covid infection. And elevated troponin. Continue with ascorbic acid, zinc, and Lovenox. Consult pulmonary service. Follow-up recommendation by replenishment analyst. Continue with aspirin. Check echocardiogram Labs and medication were reviewed.. Continue same treatment. Continue with symptomatic treatment. Resume home medication. Monitor lytes and vitals. DVT and GI prophylaxis. Further recommendations depends on the clinical course of the patient DVT prophylaxis: On heparin drip GI Prophylaxis: Ppi Prognosis is guarded
[2020-06-19 16:43] LABS: Glucose,Whole Blood 123 mg/dL (75-99)
[2020-06-19] MEDS: ASCORBIC ACID 500 MG TAB PO SCH (17:35)
[2020-06-19 20:23] LABS: Appearance,Urine Clear (Clear); Bacteria,Urine Rare /hpf; Bilirubin,Urine Negative (Negative); Blood,Urine Trace (Negative); Color,Urine Yellow; Glucose,Urine (UA) Negative (Negative); Ketones,Urine Negative (Negative); Leukocyte Esterase,Urine Moderate (Negative); Mucus,Urine Rare /hpf; Nitrite,Urine Negative (Negative); Protein,Urine Trace (Negative); RBC,Urine 5 /hpf (0-5); Specific Gravity,Urine 1.036 (1.001-1.035); Squamous Epithelial Cell,Urine 1 /hpf (0-4); Urobilinogen,Urine <2.0 mg/dL (<2.0); WBC,Urine 21 /hpf (0-5)
[2020-06-19 20:48] LABS: Glucose,Whole Blood 141 mg/dL (75-99)
[2020-06-19] MEDS: ACETAMINOPHEN TAB 325 MG TAB PO PRN (21:05)
[2020-06-19] MEDS: GABAPENTIN 300 MG CAP PO SCH (21:06)
[2020-06-19] MEDS: INSULIN ASPART (NovoLOG) 100 UNIT/ML VIAL SQ SCH (21:06)
[2020-06-20] MEDS: SODIUM CHLORIDE 0.9% 1,000 ML IV SCH ×2 (01:25→10:25)
[2020-06-20 06:39] LABS: Glucose,Whole Blood 116 mg/dL (75-99)
[2020-06-20] MEDS: INSULIN ASPART (NovoLOG) 100 UNIT/ML VIAL SQ SCH ×4 (06:55→21:21)
[2020-06-20 07:54] LABS: Basophils # (A) 0.1 k/uL (0-0.2); Basophils % (A) 2 %; Eosinophils % (A) 1 %; HCT 34.8 % (34.0-46.0); HGB 11.7 gm/dL (11.4-16.0); Lymphocytes # (A) 0.9 k/uL (1.0-4.8); Lymphocytes % (A) 25 %; MCH 29.4 pg (25.0-35.0); MCHC 33.7 g/dL (31.0-37.0); MCV 87.4 fL (80.0-100.0); Mean Platelet Volume 7.5; Monocytes # (A) 0.4 k/uL (0-1.0); Monocytes % (A) 10 %; Neutrophils # (A) 2.2 k/uL (1.3-7.7); Neutrophils % (A) 59 %; Platelet Count 255 k/uL (150-450); RBC 3.98 m/uL (3.80-5.40); RDW 13.5 % (11.5-15.5); WBC 3.7 k/uL (3.8-10.6)
[2020-06-20] MEDS: ASCORBIC ACID 500 MG TAB PO SCH (08:54)
[2020-06-20] MEDS: ACETAMINOPHEN TAB 325 MG TAB PO PRN ×2 (08:54→17:42)
[2020-06-20] MEDS: GABAPENTIN 300 MG CAP PO SCH ×2 (08:54→21:21)
[2020-06-20] MEDS ORDERED: LEVOFLOXACIN 500MG-D5W PMX 500 MG in DEXTROSE/WATER 1 100ML.BAG IVPB SCH (10:00)
[2020-06-20] MEDS: HEPARIN SOD,PORK IN 0.45% NACL 25,000 UNIT in 0.45% NACL 1 250ML.BAG IV SCH (10:14)
[2020-06-20] MEDS: TAMSULOSIN 0.4 MG CAP.ER.24H PO SCH ×2 (10:14→10:25)
[2020-06-20] MEDS: METOPROLOL TARTRATE 12.5 MG TAB PO SCH ×2 (11:53→21:21)
[2020-06-20 12:02] LABS: Glucose,Whole Blood 94 mg/dL (75-99)
--- NOTE | 2020-06-20 13:30 | P.CRDCN ---
History of Present Illness Consult date: 06/20/20 History of present illness: CHIEF COMPLAINT: Abnormal troponins HISTORY OF PRESENT ILLNESS: This is an 79-year-old female who presented to the hospital secondary to shortness of breath. We have been asked to see the patient in consultation for abnormal troponins. Patient is positive for COVID. DIAGNOSTICS: EKG reveals sinus rhythm Chest xray mild cardiomegaly with chronic parenchymal changes, no suspicious focal infiltrate Laboratory data: WBC 3.7. Hemoglobin 11.7. Platelet count 255. D-dimer 0.69. Sodium 136. Potassium 4.4. BUN 31. Creatinine 0.95. Troponin 3.920. 3.090. 2.780. Current home cardiac medications include lisinopril hydrochlorothiazide 2025 milligrams daily REVIEW OF SYSTEMS: Thorough review of systems not completed secondary to limited evalua tion/examination due to Covid19 PHYSICAL EXAM: Thorough physical exam not completed secondary to limited evaluation/examination and due to Covid19 ASSESSMENT: Covid 19 Elevated troponins, suspect secondary to type II IL due to oxygen supply and demand mismatch Hypertension Diabetes mellitus PLAN: Obtain 2-D echo to assess cardiac structure and function Continue IV heparin Add aspirin 81 mg daily Add metoprolol 12.5 mg BID Further recommendations pending patient's course Nurse practitioner note has been reviewed by physician. Signing provider agrees with the documented findings, assessment, and plan of care. Past Medical History Past Medical History: Cancer, Diabetes Mellitus, Hypertension, Pneumonia Additional Past Medical History / Comment(s): Left breast History of Any Multi-Drug Resistant Organisms: None Reported Past Surgical History: Adenoidectomy, Breast Surgery, Hysterectomy, Orthopedic Surgery, Tonsillectomy Additional Past Surgical History / Comment(s): partial hysterectomy. right total hip replacement Past Anesthesia/Blood Transfusion Reactions: No Reported Reaction Past Psychological History: No Psychological Hx Reported Smoking Status: Never smoker Past Alcohol Use History: None Reported Past Drug Use History: None Reported - Past Family History Mother Family Medical History: No Reported History Father Family Medical History: No Reported History Sister(s) Family Medical History: Diabetes Mellitus Medications and Allergies Home Medications Medication Instructions Recorded Confirmed Type Ascorbic Acid [Vitamin C] 500 mg PO DAILY 12/09/19 06/19/20 History Calcium Carbonate/Vitamin D3 1 tab PO BID 12/09/19 06/19/20 History [Calcium 600-D3 20Mcg(800 Unit)] Gabapentin [Neurontin] 300 mg PO BID 12/09/19 06/19/20 History Glucos Sul 2Kcl/MSM/Chond/C/Mn 1 tab PO BID 12/09/19 06/19/20 History [Glucosamine Chondroitin Cap] Lisinopril-Hctz 20-25 mg 1 tab PO DAILY 12/09/19 06/19/20 History [Zestoretic 20-25] Multivit-Min/Iron/Folic/Lutein 1 tab PO DAILY 12/09/19 06/19/20 History [Centrum Silver Women Tablet] Zion-3 Fatty Acids/Fish Oil [Fish 1 cap PO DAILY 12/09/19 06/19/20 History Oil 1,000 mg Softgel] Potassium Chloride 10 meq PO QAM 12/09/19 06/19/20 History Vitamin B Complex 1 tab PO DAILY 12/09/19 06/19/20 History glipiZIDE/METFORMIN HCL 1 tab PO DAILY 12/09/19 06/19/20 History [glipiZIDE/METFORMIN HCL 2.5-500 mg] Metanx Supplement 2 cap PO BID 06/19/20 06/19/20 History Allergies Allergy/AdvReac Type Severity Reaction Status Date / Time bee venom protein (honey bee) Allergy Severe Swelling Verified 06/19/20 10:31 ampicillin Allergy Rash/Hives Verified 06/19/20 10:31 Physical Exam Vitals: Vital Signs Temp Pulse Pulse Resp BP BP Pulse Ox 06/20/20 11:53 98.3 F 84 18 124/54 94 L 06/20/20 08:00 98.3 F 76 18 115/63 98 06/20/20 03:41 98.4 F 84 19 129/72 96 06/20/20 01:25 98.6 F 06/20/20 00:00 99.7 F H 74 20 97/50 95 06/19/20 22:00 99.6 F 06/19/20 20:48 101.6 F H 98 18 126/74 97 06/19/20 20:02 100.3 F H 06/19/20 19:00 96 18 146/79 97 06/19/20 18:00 93 18 06/19/20 17:00 96 16 132/92 96 06/19/20 16:33 99.9 F H 91 20 138/62 97 06/19/20 16:27 99.9 F H 91 20 138/62 97 06/19/20 16:00 93 18 93 L 06/19/20 15:59 95 06/19/20 15:34 89 20 134/89 96 Intake and Output 06/19/20 06/20/20 06/20/20 22:59 06:59 14:59 Intake Total 948.341 Output Total 400 500 Balance -400 -500 948.341 Intake: IV 724 Heparin Sod,Pork in 0.45% 24 NaCl 25,000 unit In 0.45 % NaCl 1 250ml.bag @ 11.6 UNITS/KG/HR 9.997 mls/hr IV .Q24H OJ Rx#: [id number] Levofloxacin 500Mg-D5w 100 Pmx 500 mg In Dextrose/ Water 1 100ml.bag @ 100 mls/hr IVPB Q24H OJ Rx#: [id number] Sodium Chloride 0.9% 1, 600 000 ml @ 75 mls/hr IV . [id number] OJ Rx#:[id number] Intake, IV Titration 224.341 Amount Heparin Sod,Pork in 0.45% 224.341 NaCl 25,000 unit In 0.45 % NaCl 1 250ml.bag @ 11.6 UNITS/KG/HR 9.997 mls/hr IV .Q24H OJ Rx#: [id number] Output: Urine 400 500 Uretheral (Hdez) 400 Other: Voiding Method Indwelling Catheter Indwelling Catheter Indwelling Catheter Weight 86.183 kg 89.5 kg Results 06/20/20 07:02 06/19/20 06:43 Cardiac Enzymes 06/19/20 Range/Units 15:10 Troponin I 2.780 H* (0.000-0.034) ng/mL Coagulation 06/19/20 06/20/20 Range/Units 15:10 07:02 APTT 52.7 H 119.2 H* (22.0-30.0) sec CBC 06/20/20 Range/Units 07:02 WBC 3.7 L (3.8-10.6) k/uL RBC 3.98 (3.80-5.40) m/uL Hgb 11.7 (11.4-16.0) gm/dL Hct 34.8 (34.0-46.0) % Plt Count 255 (150-450) k/uL Current Medications Generic Name Dose Route Start Last Admin Trade Name Freq PRN Reason Stop Dose Admin Acetaminophen 650 mg 06/19/20 20:59 06/20/20 08:54 Acetaminophen Tab 325 Mg Tab PO 650 mg Q6HR PRN Administration Fever and/ or Pain Ascorbic Acid 1,000 mg 06/19/20 14:30 06/20/20 08:54 Ascorbic Acid 500 Mg Tab PO 1,000 mg DAILY OJ Administration Aspirin 81 mg 06/21/20 09:00 Aspirin 81 Mg PO DAILY OJ Gabapentin 300 mg 06/19/20 21:00 06/20/20 08:54 Gabapentin 300 Mg Cap PO 300 mg BID OJ Administration Heparin Sodium (Porcine) 0 unit 06/19/20 09:17 Heparin Sodium,Porcine 5,000 Unit/Ml 1 Ml Vial IV PER PROTOCOL PRN Low PTT Protocol Heparin Sodium/Sodium Chloride 250 mls @ 9.997 mls/hr 06/19/20 09:30 06/20/20 10:14 25,000 unit/ Sodium Chloride IV 8.6 units/kg/hr .Q24H OJ 7.412 mls/hr Administration Protocol 11.6 UNITS/KG/HR Sodium Chloride 1,000 mls @ 75 mls/hr 06/19/20 09:30 06/20/20 10:25 Saline 0.9% IV 75 mls/hr .[id number] OJ Administration Levofloxacin 500 mg/ IV 100 mls @ 100 mls/hr 06/20/20 10:00 06/20/20 10:14 Solution IVPB 100 mls/hr Q24H OJ Administration Insulin Aspart 0 unit 06/19/20 21:00 06/20/20 12:01 Insulin Aspart (Novolog) 100 Unit/Ml Vial SQ Not Given ACHS [facility] Protocol Metoprolol Tartrate 12.5 mg 06/20/20 10:30 06/20/20 11:53 Metoprolol Tartrate 12.5 Mg Tab PO 12.5 mg BID OJ Administration Naloxone HCl 0.2 mg 06/19/20 09:30 Naloxone 0.4 Mg/Ml 1 Ml Vial IV Q2M PRN Opioid Reversal Tamsulosin HCl 0.4 mg 06/20/20 07:30 06/20/20 10:25 Tamsulosin 0.4 Mg Cap.Er.24h PO 0.4 mg [id number] OJ Administration Intake and Output 06/19/20 06/20/20 06/20/20 22:59 06:59 14:59 Intake Total 948.341 Output Total 400 500 Balance -400 -500 948.341 Intake: IV 724 Heparin Sod,Pork in 0.45% 24 NaCl 25,000 unit In 0.45 % NaCl 1 250ml.bag @ 11.6 UNITS/KG/HR 9.997 mls/hr IV .Q24H OJ Rx#: [id number] Levofloxacin 500Mg-D5w 100 Pmx 500 mg In Dextrose/ Water 1 100ml.bag @ 100 mls/hr IVPB Q24H OJ Rx#: [id number] Sodium Chloride 0.9% 1, 600 000 ml @ 75 mls/hr IV . [id number] OJ Rx#:[id number] Intake, IV Titration 224.341 Amount Heparin Sod,Pork in 0.45% 224.341 NaCl 25,000 unit In 0.45 % NaCl 1 250ml.bag @ 11.6 UNITS/KG/HR 9.997 mls/hr IV .Q24H OJ Rx#: [id number] Output: Urine 400 500 Uretheral (Hdez) 400 Other: Voiding Method Indwelling Catheter Indwelling Catheter Indwelling Catheter Weight 86.183 kg 89.5 kg 06/20/20 07:02 06/19/20 06:43
[2020-06-20 16:57] LABS: Glucose,Whole Blood 108 mg/dL (75-99)
--- NOTE | 2020-06-20 19:38 | P.PN ---
Subjective this is a pleasant 79 years old female with multiple medical problems as below including diabetes, hypertension. She is a patient of Dr. Grande. Presents because of dyspnea. Associated with dry cough. Patient felt he had a fever at home. She has a diagnosis of Covid infection about one week ago. Patient with no chest pain patient currently is lying comfortable in bed no respiratory distress. She denies history of smoking vitals are stable, saturating 96% on 2 L oxygen via nasal cannula Labs showing unremarkable CBC, INR, BMP and electrolytes. Liver enzymes slightly elevated with AST 120 and ALT 35. Troponin is elevated at 3.9 and 3.0 EKG showing normal sinus rhythm at [address]-T changes. CTA of the chest: No pulmonary embolism enlarged left hilar lymph node and subcarinal lymph nodes and right hilar lymph nodes. Possible left lower lobe infiltrate In the emergency room patient was started on aspirin, heparin drip and normal saline at 75 mL 06/20/2020 This is a pleasant 79 years old female was admitted for left lower lobe pneumonia, also she has positive Covid test. She presents because of dyspnea a nd coughing, however at rest she's not in respiratory distress. She is saturating high 90s into her oxygen via nasal cannula. Risks of vitals are stable, patient with low-grade fever of 99.7 earlier Patient also was found to have high troponin and placed on heparin drip. [employer] [facility] evaluated the patient and continue with aspirin, metoprolol and echocardiogram Also patient with urinary retention, Hdez catheter was placed, UA is suspicious for infection and Levaquin was added for both pulmonary and UTI infection, patient is also ALLERGIC to penicillin. Flomax is admitted for urinary reten tion Review of System CONSTITUTIONAL: No fever, no malaise, no fatigue. HEENT: No recent visual problems or hearing problems. Denied any sore throat. CARDIOVASCULAR: No orthopnea, PND, no palpitations, no syncope. PULMONARY: No shortness of breath, no cough, no hemoptysis. GASTROINTESTINAL: No diarrhea, no nausea, no vomiting, no abdominal pain. Normoactive bowel sounds. NEUROLOGICAL: No headaches, no weakness, no numbness. HEMATOLOGICAL: Denies any bleeding or petechiae. Active Medications Generic Name Dose Route Start Last Admin Trade Name Freq PRN Reason Stop Dose Admin Acetaminophen 650 mg 06/19/20 20:59 11/29/20 17:42 Acetaminophen Tab 325 Mg Tab PO 650 mg Q6HR PRN Administration Fever and/ or Pain Ascorbic Acid 1,000 mg 06/19/20 14:30 06/20/20 08:54 Ascorbic Acid 500 Mg Tab PO 1,000 mg DAILY OJ Administration Aspirin 81 mg 06/21/20 09:00 Aspirin 81 Mg PO DAILY OJ Gabapentin 300 mg 06/19/20 21:00 06/20/20 08:54 Gabapentin 300 Mg Cap PO 300 mg BID OJ Administration Heparin Sodium (Porcine) 0 unit 06/19/20 09:17 Heparin Sodium,Porcine 5,000 Unit/Ml 1 Ml Vial IV PER PROTOCOL PRN Low PTT Protocol Heparin Sodium/Sodium Chloride 250 mls @ 9.997 mls/hr 06/19/20 09:30 06/20/20 18:17 25,000 unit/ Sodium Chloride IV 5.6 units/kg/hr .Q24H OJ 4.826 mls/hr Titration Protocol 11.6 UNITS/KG/HR Sodium Chloride 1,000 mls @ 75 mls/hr 06/19/20 09:30 06/20/20 10:25 Saline 0.9% IV 75 mls/hr .[id number] OJ Administration Insulin Aspart 0 unit 06/19/20 21:00 06/20/20 17:07 Insulin Aspart (Novolog) 100 Unit/Ml Vial SQ Not Given ACHS [facility] Protocol Levofloxacin 500 mg 06/21/20 09:00 Levofloxacin 500 Mg Tab PO DAILY [facility] Melatonin 3 mg 06/20/20 21:00 Melatonin 3 Mg Tablet PO HS [facility] Metoprolol Tartrate 12.5 mg 06/20/20 10:30 06/20/20 11:53 Metoprolol Tartrate 12.5 Mg Tab PO 12.5 mg BID OJ Administration Naloxone HCl 0.2 mg 06/19/20 09:30 Naloxone 0.4 Mg/Ml 1 Ml Vial IV Q2M PRN Opioid Reversal Tamsulosin HCl 0.4 mg 06/20/20 07:30 06/20/20 10:25 Tamsulosin 0.4 Mg Cap.Er.24h PO 0.4 mg [id number] OJ Administration Zinc Sulfate 220 mg 06/21/20 09:00 Zinc Sulfate 220 Mg Cap PO DAILY [facility] Objective - Vital Signs Vital signs: Vital Signs Temp 98.2 F 06/20/20 15:13 Pulse 76 06/20/20 15:13 Resp 18 06/20/20 15:13 BP 126/54 06/20/20 15:13 Pulse Ox 97 06/20/20 15:13 Intake & Output 06/19/20 06/20/20 06/20/20 18:59 06:59 18:59 Intake Total 993.060 Output Total 900 Balance -900 993.060 Weight 86.183 kg 89.5 kg Intake: IV 724 Heparin Sod,Pork in 0.45% 24 NaCl 25,000 unit In 0.45 % NaCl 1 250ml.bag @ 11.6 UNITS/KG/HR 9.997 mls/hr IV .Q24H OJ Rx#: [id number] Levofloxacin 500Mg-D5w 100 Pmx 500 mg In Dextrose/ Water 1 100ml.bag @ 100 mls/hr IVPB Q24H OJ Rx#: [id number] Sodium Chloride 0.9% 1, 600 000 ml @ 75 mls/hr IV . [id number] OJ Rx#:[id number] Intake, IV Titration 269.060 Amount Heparin Sod,Pork in 0.45% 269.060 NaCl 25,000 unit In 0.45 % NaCl 1 250ml.bag @ 11.6 UNITS/KG/HR 9.997 mls/hr IV .Q24H OJ Rx#: [id number] Output: Urine 900 Uretheral (Hdez) 400 Other: Voiding Method Bedside Commode Indwelling Catheter Indwelling Catheter - Exam GENERAL: The patient is alert and oriented x3, not in any acute distress. Well developed, well nourished. HEENT: Pupils are round and equally reacting to light. EOMI. No scleral icterus. No conjunctival pallor. Normocephalic, atraumatic. No pharyngeal erythema. No thyromegaly. CARDIOVASCULAR: S1 and S2 present. No murmurs, rubs, or gallops. PULMONARY: Chest is clear to auscultation, no wheezing or crackles. ABDOMEN: Soft, nontender, nondistended, normoactive bowel sounds. No palpable organomegaly. MUSCULOSKELETAL: No joint swelling or deformity. EXTREMITIES: No cyanosis, clubbing, or pedal edema. NEUROLOGICAL: Gross neurological examination did not reveal any focal deficits. SKIN: No rashes. no petechiae. - Labs CBC & Chem 7: 11/29/20 07:02 06/19/20 06:43 Labs: Abnormal Lab Results - Last 24 Hours (Table) 06/19/20 06/19/20 06/20/20 Range/Units 19:50 20:45 06:27 WBC (3.8-10.6) k/uL Lymphocytes # (1.0-4.8) k/uL APTT (22.0-30.0) sec POC Glucose (mg/dL) 141 H 116 H (75-99) mg/dL Ur Specific [place] 1.036 H (1.001-1.035) Urine Protein Trace H (Negative) Urine Blood Trace H (Negative) Ur Leukocyte Esterase Moderate H (Negative) Urine WBC 21 H (0-5) /hpf Urine Bacteria Rare H (None) /hpf Urine Mucus Rare H (None) /hpf 06/20/20 06/20/20 06/20/20 Range/Units 07:02 07:02 14:58 WBC 3.7 L (3.8-10.6) k/uL Lymphocytes # 0.9 L (1.0-4.8) k/uL APTT 119.2 H* >200.0 H* (22.0-30.0) sec POC Glucose (mg/dL) (75-99) mg/dL Ur Specific [place] (1.001-1.035) Urine Protein (Negative) Urine Blood (Negative) Ur Leukocyte Esterase (Negative) Urine WBC (0-5) /hpf Urine Bacteria (None) /hpf Urine Mucus (None) /hpf 06/20/20 Range/Units 16:55 WBC (3.8-10.6) k/uL Lymphocytes # (1.0-4.8) k/uL APTT (22.0-30.0) sec POC Glucose (mg/dL) 108 H (75-99) mg/dL Ur Specific [place] (1.001-1.035) Urine Protein (Negative) Urine Blood (Negative) Ur Leukocyte Esterase (Negative) Urine WBC (0-5) /hpf Urine Bacteria (None) /hpf Urine Mucus (None) /hpf Microbiology - Last 24 Hours (Table) 06/19/20 19:50 Urine Culture - Preliminary Urine,Voided 06/19/20 06:43 Blood Culture - Preliminary Blood No Growth after 24 hours Assessment and Plan Assessment: Left lower lobe pneumonia, could be related to call with infection with left hilar lymphadenopathy Elevated troponin, rule out cardiac causes and disease acute urinary return infection Acute urinary retention, status post Hdez cath placement Mildly elevated liver enzymes Diabetes mellitus Hypertension Plan: This is a pleasant 79 years old female who presents with left lower lobe pneumonia. With covid infection. And elevated troponin. Continue with ascorbic acid, zinc, and Lovenox (currently on heparin drip as stated). Consult pulmonary service. Follow-up recommendation by production broacher. Continue with aspirin and metoprolol . Check echocardiogram Labs and medication were reviewed.. Continue same treatment. Continue with symptomatic treatment. Resume home medication. Monitor lytes and vitals. DVT and GI prophylaxis. Further recommendations depends on the clinical course of the patient DVT prophylaxis: On heparin drip GI Prophylaxis: Ppi Prognosis is guarded Dr. Grande will resume the care of the patient tomorrow
[2020-06-20 20:17] LABS: Glucose,Whole Blood 201 mg/dL (75-99)
[2020-06-20] MEDS: MELATONIN 3 MG TABLET PO SCH (21:21)
[2020-06-21 06:48] LABS: Glucose,Whole Blood 106 mg/dL (75-99)
[2020-06-21] MEDS: LEVOFLOXACIN 500 MG TAB PO SCH (08:12)
[2020-06-21] MEDS: ASPIRIN 81 MG PO SCH (08:12)
[2020-06-21] MEDS: TAMSULOSIN 0.4 MG CAP.ER.24H PO SCH (08:12)
[2020-06-21] MEDS: SODIUM CHLORIDE 0.9% 1,000 ML IV SCH ×2 (08:12→16:30)
[2020-06-21] MEDS: GABAPENTIN 300 MG CAP PO SCH ×2 (08:12→22:17)
[2020-06-21] MEDS: ZINC SULFATE 220 MG CAP PO SCH (08:12)
[2020-06-21] MEDS: METOPROLOL TARTRATE 12.5 MG TAB PO SCH ×2 (08:12→22:17)
[2020-06-21] MEDS: INSULIN ASPART (NovoLOG) 100 UNIT/ML VIAL SQ SCH ×4 (08:13→22:18)
--- NOTE | 2020-06-21 09:07 | P.PN ---
Subjective Progress Note Date: 06/21/20 Principal diagnosis: Pneumonia with elevated cardiac Enzymes. The patient is 79-year-old white female with known history of hypertension who is now admitted for coronavirus/Covid pneumonia with chest pain. Objective - Vital Signs Vital signs: Vital Signs Temp 97.6 F 06/21/20 08:10 Pulse 86 06/21/20 08:10 Resp 18 06/21/20 08:10 BP 145/60 06/21/20 08:10 Pulse Ox 95 06/21/20 08:10 Intake & Output 06/20/20 06/21/20 06/21/20 18:59 06:59 18:59 Intake Total 2069.060 22.763 120 Output Total 700 1950 Balance 1369.060 -1927.237 120 Weight 88.5 kg Intake: IV 1324 Heparin Sod,Pork in 0.45% 24 NaCl 25,000 unit In 0.45 % NaCl 1 250ml.bag @ 11.6 UNITS/KG/HR 9.997 mls/hr IV .Q24H OJ Rx#: [id number] Levofloxacin 500Mg-D5w 100 Pmx 500 mg In Dextrose/ Water 1 100ml.bag @ 100 mls/hr IVPB Q24H OJ Rx#: [id number] Sodium Chloride 0.9% 1, 1200 000 ml @ 75 mls/hr IV . [id number] OJ Rx#:[id number] Intake, IV Titration 269.060 22.763 Amount Heparin Sod,Pork in 0.45% 269.060 22.763 NaCl 25,000 unit In 0.45 % NaCl 1 250ml.bag @ 11.6 UNITS/KG/HR 9.997 mls/hr IV .Q24H OJ Rx#: [id number] Oral 476 120 Output: Urine 700 1950 Other: Voiding Method Indwelling Catheter Indwelling Catheter - Constitutional General appearance: Present: mild distress - EENT Eyes: Absent: abnormal pupil - Neck Neck: Absent: lymphadenopathy - Respiratory Respiratory: bilateral: diminished - Cardiovascular Rhythm: regular Heart sounds: normal: S1, S2 Abnormal Heart Sounds: Absent: S3 Gallop - Gastrointestinal General gastrointestinal: Present: soft. Absent: tenderness - Integumentary Integumentary: Absent: cellulitis - Neurologic Neurologic: Absent: focal deficits - Labs CBC & Chem 7: 06/20/20 07:02 11/28/20 06:43 Labs: Abnormal Lab Results - Last 24 Hours (Table) 06/20/20 06/20/20 06/20/20 Range/Units 14:58 16:55 20:01 APTT >200.0 H* (22.0-30.0) sec POC Glucose (mg/dL) 108 H 201 H (75-99) mg/dL 06/20/20 06/21/20 Range/Units 22:34 06:28 APTT 37.6 H (22.0-30.0) sec POC Glucose (mg/dL) 106 H (75-99) mg/dL Microbiology - Last 24 Hours (Table) 06/19/20 06:43 Blood Culture - Preliminary Blood No Growth after 48 hours 06/19/20 19:50 Urine Culture - Preliminary Urine,Voided Assessment and Plan (1) COVID-19 Current Visit: Yes Status: Acute Code(s): U07.1 - COVID-19 SNOMED Code(s): 520755283 (2) Elevated troponin Current Visit: Yes Status: Acute Code(s): R77.8 - OTHER SPECIFIED ABNORMALITIES OF PLASMA PROTEINS SNOMED Code(s): 416578812 (3) Shortness of breath Current Visit: Yes Status: Acute Code(s): R06.02 - SHORTNESS OF BREATH SNOMED Code(s): 367275305 (4) Pneumonia Current Visit: Yes Status: Acute Code(s): J18.9 - PNEUMONIA, UNSPECIFIED ORGANISM SNOMED Code(s): 518231846 Plan: Continue supportive care. Echocardiogram is pending today. Check CBC and CMP in the a.m.
[2020-06-21 10:00] LABS: Basophils % (A) 1 %; Eosinophils % (A) 1 %; HCT 32.8 % (34.0-46.0); HGB 11.4 gm/dL (11.4-16.0); Lymphocytes # (A) 0.9 k/uL (1.0-4.8); Lymphocytes % (A) 28 %; MCH 30.3 pg (25.0-35.0); MCHC 34.6 g/dL (31.0-37.0); MCV 87.5 fL (80.0-100.0); Mean Platelet Volume 7.3; Monocytes # (A) 0.3 k/uL (0-1.0); Monocytes % (A) 9 %; Neutrophils # (A) 1.8 k/uL (1.3-7.7); Neutrophils % (A) 58 %; Platelet Count 246 k/uL (150-450); RBC 3.75 m/uL (3.80-5.40); RDW 13.4 % (11.5-15.5)
--- NOTE | 2020-06-21 11:03 | P.PN ---
Subjective Progress Note Date: 06/21/20 Is an 79-year-old female with history of hypertension, diabetes, hyperlipidemia, who presented to the hospital mainly with symptoms of shortness of breath and fever. She is positive for COVID -19. A cardiology consultation was originally requested because of abnormality in troponins suggestive of possible acute coronary syndrome. Troponins were 3.9, 3.0, 2.7. Echocardiogram with Doppler study has been performed but is yet pending. Let pressure 144/60 with a heart rate of 80, 95% on room air. White blood cell count 3.0, hemoglobin 11.4, platelet count 246. We will add a statin to the patient's medication regime, discontinue her IV heparin. Objective - Vital Signs Vital signs: Vital Signs Temp 97.6 F 06/21/20 08:10 Pulse 86 06/21/20 08:10 Resp 18 06/21/20 08:10 BP 145/60 06/21/20 08:10 Pulse Ox 95 06/21/20 08:10 Intake & Output 06/20/20 06/21/20 06/21/20 18:59 06:59 18:59 Intake Total 2069.060 22.763 120 Output Total 700 1950 Balance 1369.060 -1927.237 120 Weight 88.5 kg Intake: IV 1324 Heparin Sod,Pork in 0.45% 24 NaCl 25,000 unit In 0.45 % NaCl 1 250ml.bag @ 11.6 UNITS/KG/HR 9.997 mls/hr IV .Q24H OJ Rx#: [id number] Levofloxacin 500Mg-D5w 100 Pmx 500 mg In Dextrose/ Water 1 100ml.bag @ 100 mls/hr IVPB Q24H OJ Rx#: [id number] Sodium Chloride 0.9% 1, 1200 000 ml @ 75 mls/hr IV . [id number] OJ Rx#:[id number] Intake, IV Titration 269.060 22.763 Amount Heparin Sod,Pork in 0.45% 269.060 22.763 NaCl 25,000 unit In 0.45 % NaCl 1 250ml.bag @ 11.6 UNITS/KG/HR 9.997 mls/hr IV .Q24H OJ Rx#: [id number] Oral 476 120 Output: Urine 700 1950 Other: Voiding Method Indwelling Catheter Indwelling Catheter Indwelling Catheter - Exam Physical examination A thorough physical examination was not completed secondary to limited evaluation/examination due to Covid 19 - Labs CBC & Chem 7: 06/21/20 09:32 06/19/20 06:43 Labs: Abnormal Lab Results - Last 24 Hours (Table) 06/20/20 06/20/20 06/20/20 Range/Units 14:58 16:55 20:01 WBC (3.8-10.6) k/uL RBC (3.80-5.40) m/uL Hct (34.0-46.0) % Lymphocytes # (1.0-4.8) k/uL APTT >200.0 H* (22.0-30.0) sec POC Glucose (mg/dL) 108 H 201 H (75-99) mg/dL 06/20/20 06/21/20 06/21/20 Range/Units 22:34 06:28 09:32 WBC 3.0 L (3.8-10.6) k/uL RBC 3.75 L (3.80-5.40) m/uL Hct 32.8 L (34.0-46.0) % Lymphocytes # 0.9 L (1.0-4.8) k/uL APTT 37.6 H (22.0-30.0) sec POC Glucose (mg/dL) 106 H (75-99) mg/dL 06/21/20 Range/Units 09:32 WBC (3.8-10.6) k/uL RBC (3.80-5.40) m/uL Hct (34.0-46.0) % Lymphocytes # (1.0-4.8) k/uL APTT 35.9 H (22.0-30.0) sec POC Glucose (mg/dL) (75-99) mg/dL Microbiology - Last 24 Hours (Table) 06/19/20 19:50 Urine Culture - Final Urine,Voided 06/19/20 06:43 Blood Culture - Preliminary Blood No Growth after 48 hours Assessment and Plan Plan: Assessment and plan #1 acute Covid 19 infection #2 elevated troponins, likely secondary to type to myocardial infarction, oxygen supply and demand mismatch #3 hypertension #4 hyperlipidemia #5 diabetes Plan We will discontinue the IV heparin, add a statin to the medication regime. Review the patient's echocardiogram with Doppler study. Continue medical therapy. DNP note has been reviewed, I agree with a documented findings and plan of care. Patient was seen and examined.
[2020-06-21] MEDS: ACETAMINOPHEN TAB 325 MG TAB PO PRN (11:49)
[2020-06-21] MEDS: ASCORBIC ACID 500 MG TAB PO SCH (11:49)
--- NOTE | 2020-06-21 12:00 | ECHOF ---
Referral Reason:Positive troponin MEASUREMENTS -------- HEIGHT: 170.2 cm WEIGHT: 86.2 kg BP: IVSd: 0.9 cm (0.6 - 1.1) LVIDd: 4.2 cm (3.9 - 5.3) LVPWd: 1.2 cm (0.6 - 1.1) IVSs: 1.2 cm LVIDs: 3.2 cm LVPWs: 1.6 cm Ao Diam: 2.7 cm (2.0 - 3.7) AV Cusp: 1.3 cm (1.5 - 2.6) LA Diam: 2.9 cm (2.7 - 3.8) MV EXCURSION: 16.312 mm (> 18.000) MV EF SLOPE: 154 mm/s (70 - 150) EPSS: 0.6 cm MV E Raymond: 1.00 m/s MV DecT: 267 ms MV A Raymond: 0.70 m/s MV E/A Ratio: 1.42 AV maxP.04 mmHg AV meanP.88 mmHg RAP: 5.00 mmHg RVSP: 18.87 mmHg FINDINGS -------- This was a technically difficult study with suboptimal views. The left ventricular size is normal. Left ventricular wall thickness is normal. Overall left vent ricular systolic function is mildly impaired with, an EF between 45 - 50 %. Basal inferior LV wall motion is hypokinetic. Basal inferoseptal LV wall motion is hypokinetic. Mid inferior LV wall m otion is hypokinetic. The RV was not well visualized. The left atrial size is normal. The right atrium was not well visualized. Lumason used The aortic valve was not well visualized. Peak/mean gradient across the Aortic Valve is 7.04mmHg / 3.88mmHg. Mild mitral annular calcification present. Mild mitral regurgitation is present. The tricuspid valve appears structurally normal. Mild tricuspid regurgitation present. Right vent ricular systolic pressure is normal at < 35 mmHg. The pulmonic valve was not well visualized. The aortic root size is normal. IVC Not well visulized. There is no pericardial effusion. CONCLUSIONS -------- 1. Left ventricular wall thickness is normal. 2. Overall left ventricular systolic function is mildly impaired with, an EF between 45 - 50 %. 3. Basal inferior LV wall motion is hypokinetic. 4. Basal inferoseptal LV wall motion is hypokinetic. 5. Mid inferior LV wall motion is hypokinetic. 6. The left atrial size is normal. 7. Peak/mean gradient across the Aortic Valve is 7.04mmHg / 3.88mmHg. 8. Mild mitral regurgitation is present. 9. Mild tricuspid regurgitation present. 10. There is no pericardial effusion. VEGETABLE THINNER: Sanjana Myers RDCS
[2020-06-21 12:07] LABS: Glucose,Whole Blood 132 mg/dL (75-99)
--- NOTE | 2020-06-21 12:31 | P.CNPUL ---
History of Present Illness Consult date: 06/21/20 Reason for consult: dyspnea, cough Chief complaint: Cough fever, coVID 19 pneumonia History of present illness: This is a 79-year-old female with multiple medical problems including hypertension hypertensive cardiovascular disease along with diabetes mellitus, for 5 days patient is living shortness of breath cough and dyspnea with intermittent fever at home, patient was diagnosed with cold with 19 infection about a week ago, remained short of breath on supplemental oxygen, patient underwent computed tomography scan of his chest no PE was seen left hilar lymphadenopathy and subcarinal right hilar lymph nodes are seen along with left lower lobe infiltrate, currently patient is being treated with the Levaquin alejandro g with continuation of home medications along gentle hydration heparin has been discontinued she denies any chest pain, oxygen saturation is 98% on 2 L, hemodynamic status stable, troponin level elevated suggestive of non-Q-wave DC Review of Systems All systems: negative Past Medical History Past Medical History: Cancer, Diabetes Mellitus, Hypertension, Pneumonia Additional Past Medical History / Comment(s): Left breast History of Any Multi-Drug Resistant Organisms: None Reported Past Surgical History: Adenoidectomy, Breast Surgery, Hysterectomy, Orthopedic Surgery, Tonsillectomy Additional Past Surgical History / Comment(s): partial hysterectomy. right total hip replacement Past Anesthesia/Blood Transfusion Reactions: No Reported Reaction Past Psychological History: No Psychological Hx Reported Smoking Status: Never smoker Past Alcohol Use History: None Reported Past Drug Use History: None Reported - Past Family History Mother Family Medical History: No Reported History Father Family Medical History: No Reported History Sister(s) Family Medical History: Diabetes Mellitus Medications and Allergies Home Medications Medication Instructions Recorded Confirmed Type Ascorbic Acid [Vitamin C] 500 mg PO DAILY 12/09/19 06/19/20 History Calcium Carbonate/Vitamin D3 1 tab PO BID 12/09/19 06/19/20 History [Calcium 600-D3 20Mcg(800 Unit)] Gabapentin [Neurontin] 300 mg PO BID 12/09/19 06/19/20 History Glucos Sul 2Kcl/MSM/Chond/C/Mn 1 tab PO BID 12/09/19 06/19/20 History [Glucosamine Chondroitin Cap] Lisinopril-Hctz 20-25 mg 1 tab PO DAILY 12/09/19 06/19/20 History [Zestoretic 20-25] Multivit-Min/Iron/Folic/Lutein 1 tab PO DAILY 12/09/19 06/19/20 History [Centrum Silver Women Tablet] [place]-3 Fatty Acids/Fish Oil [Fish 1 cap PO DAILY 12/09/19 06/19/20 History Oil 1,000 mg Softgel] Potassium Chloride 10 meq PO QAM 12/09/19 06/19/20 History Vitamin B Complex 1 tab PO DAILY 12/09/19 06/19/20 History glipiZIDE/METFORMIN HCL 1 tab PO DAILY 12/09/19 06/19/20 History [glipiZIDE/METFORMIN HCL 2.5-500 mg] Metanx Supplement 2 cap PO BID 06/19/20 06/19/20 History Allergies Allergy/AdvReac Type Severity Reaction Status Date / Time bee venom protein (honey bee) Allergy Severe Swelling Verified 06/19/20 10:31 ampicillin Allergy Rash/Hives Verified 06/19/20 10:31 Physical Exam Vitals: Vital Signs Temp Pulse Resp BP Pulse Ox 06/21/20 11:45 72 16 127/63 98 06/21/20 08:10 97.6 F 86 18 145/60 95 06/21/20 04:00 98.8 F 92 18 136/70 95 06/21/20 02:00 80 18 06/21/20 00:00 98.7 F 80 18 121/69 98 06/20/20 20:00 98.3 F 82 18 131/64 97 06/20/20 15:13 98.2 F 76 18 126/54 97 Intake and Output 06/20/20 06/21/20 06/21/20 22:59 06:59 14:59 Intake Total 880.719 22.763 120 Output Total 1400 1250 Balance -519.281 -1227.237 120 Intake: IV 600 Sodium Chloride 0.9% 1, 600 000 ml @ 75 mls/hr IV . [id number] OJ Rx#:[id number] Intake, IV Titration 44.719 22.763 Amount Heparin Sod,Pork in 0.45% 44.719 22.763 NaCl 25,000 unit In 0.45 % NaCl 1 250ml.bag @ 11.6 UNITS/KG/HR 9.997 mls/hr IV .Q24H OJ Rx#: [id number] Oral 236 120 Output: Urine 1400 1250 Other: Voiding Method Indwelling Catheter Indwelling Catheter Indwelling Catheter Weight 88.5 kg - Constitutional General appearance: average body habitus, disheveled - EENT Eyes: PERRLA Ears: bilateral: normal - Neck Neck: normal ROM Carotids: bilateral: upstroke normal - Respiratory Respiratory: bilateral: CTA - Cardiovascular Rhythm: regular Heart sounds: normal: S1, S2 - Gastrointestinal General gastrointestinal: soft - Neurologic Neurologic: CNII-XII intact - Musculoskeletal Musculoskeletal: gait normal, generalized weakness - Psychiatric Psychiatric: A&O x's 3, appropriate affect, intact judgment & insight Results - Laboratory Findings CBC and BMP: 06/21/20 09:32 06/19/20 06:43 PT/INR, D-dimer PT 10.5 sec (9.0-12.0) 06/19/20 06:43 INR 1.0 (<1.2) 06/19/20 06:43 D-Dimer 0.69 mg/L FEU (<0.60) H 06/19/20 06:43 Abnormal lab findings: Abnormal Labs 06/19/20 06/19/20 06/19/20 06:43 06:43 06:43 WBC RBC Hct Lymphocytes # APTT D-Dimer 0.69 H Sodium 136 L BUN 31 H Glucose 126 H POC Glucose (mg/dL) AST 120 H ALT 35 H Troponin I 3.920 H* C-Reactive Protein 33.3 H Ur Specific Cascade Urine Protein Urine Blood Ur Leukocyte Esterase Urine WBC Urine Bacteria Urine Mucus 06/19/20 06/19/20 06/19/20 11:12 15:10 15:10 WBC RBC Hct Lymphocytes # APTT 52.7 H D-Dimer Sodium BUN Glucose POC Glucose (mg/dL) AST ALT Troponin I 3.090 H* 2.780 H* C-Reactive Protein Ur Specific Cascade Urine Protein Urine Blood Ur Leukocyte Esterase Urine WBC Urine Bacteria Urine Mucus 06/19/20 06/19/20 06/19/20 16:38 19:50 20:45 WBC RBC Hct Lymphocytes # APTT D-Dimer Sodium BUN Glucose POC Glucose (mg/dL) 123 H 141 H AST ALT Troponin I C-Reactive Protein Ur Specific Cascade 1.036 H Urine Protein Trace H Urine Blood Trace H Ur Leukocyte Esterase Moderate H Urine WBC 21 H Urine Bacteria Rare H Urine Mucus Rare H 06/20/20 06/20/20 06/20/20 06:27 07:02 07:02 WBC 3.7 L RBC Hct Lymphocytes # 0.9 L APTT 119.2 H* D-Dimer Sodium BUN Glucose POC Glucose (mg/dL) 116 H AST ALT Troponin I C-Reactive Protein Ur Specific Cascade Urine Protein Urine Blood Ur Leukocyte Esterase Urine WBC Urine Bacteria Urine Mucus 06/20/20 06/20/20 06/20/20 14:58 16:55 20:01 WBC RBC Hct Lymphocytes # APTT >200.0 H* D-Dimer Sodium BUN Glucose POC Glucose (mg/dL) 108 H 201 H AST ALT Troponin I C-Reactive Protein Ur Specific Cascade Urine Protein Urine Blood Ur Leukocyte Esterase Urine WBC Urine Bacteria Urine Mucus 06/20/20 06/21/20 06/21/20 22:34 06:28 09:32 WBC 3.0 L RBC 3.75 L Hct 32.8 L Lymphocytes # 0.9 L APTT 37.6 H D-Dimer Sodium BUN Glucose POC Glucose (mg/dL) 106 H AST ALT Troponin I C-Reactive Protein Ur Specific Cascade Urine Protein Urine Blood Ur Leukocyte Esterase Urine WBC Urine Bacteria Urine Mucus 06/21/20 06/21/20 09:32 12:00 WBC RBC Hct Lymphocytes # APTT 35.9 H D-Dimer Sodium BUN Glucose POC Glucose (mg/dL) 132 H AST ALT Troponin I C-Reactive Protein Ur Specific Cascade Urine Protein Urine Blood Ur Leukocyte Esterase Urine WBC Urine Bacteria Urine Mucus - Diagnostic Findings Chest x-ray: report reviewed, image reviewed CT scan - chest: report reviewed, image reviewed Assessment and Plan Assessment: Community-acquired pneumonia Recent covert 19 infection Mediastinal lymphadenopathy likely reactive Elevated troponin Hypertension hypertensive cardiovascular disease Plan: Agree with continuation of the Levaquin for 7-10 days Would recommend Hexadrol/Decadron 6 mg daily for 10 days as well Deep breathing exercise incentive spirometry Prone positioning For lymphadenopathy would recommend follow-up in outpatient basis will repeat another CAT scan in 3-6 months Time with Patient: Greater than 30
[2020-06-21 16:54] LABS: Glucose,Whole Blood 138 mg/dL (75-99)
[2020-06-21 20:19] LABS: Glucose,Whole Blood 140 mg/dL (75-99)
[2020-06-21] MEDS: MELATONIN 3 MG TABLET PO SCH (22:17)
[2020-06-21] MEDS: ATORVASTATIN 40 MG TAB PO SCH (22:18)
[2020-06-22 06:40] LABS: Glucose,Whole Blood 116 mg/dL (75-99)
[2020-06-22] MEDS: INSULIN ASPART (NovoLOG) 100 UNIT/ML VIAL SQ SCH ×4 (08:18→21:35)
[2020-06-22 08:46] LABS: Basophils # (A) 0.1 k/uL (0-0.2); Basophils % (A) 2 %; Eosinophils # (A) 0.1 k/uL (0-0.7); Eosinophils % (A) 2 %; HCT 37.3 % (34.0-46.0); HGB 12.6 gm/dL (11.4-16.0); Lymphocytes % (A) 28 %; MCH 29.5 pg (25.0-35.0); MCHC 33.7 g/dL (31.0-37.0); MCV 87.8 fL (80.0-100.0); Mean Platelet Volume 7.4; Monocytes # (A) 0.3 k/uL (0-1.0); Monocytes % (A) 8 %; Neutrophils # (A) 2.1 k/uL (1.3-7.7); Neutrophils % (A) 58 %; Platelet Count 285 k/uL (150-450); RBC 4.25 m/uL (3.80-5.40); RDW 13.5 % (11.5-15.5); WBC 3.7 k/uL (3.8-10.6)
[2020-06-22 09:07] LABS: ALT 40 U/L (4-34); AST 75 U/L (14-36); African American GFR (CKD) >90 (>60 ml/min/1.73 sqM); Albumin 3.3 g/dL (3.5-5.0); Alkaline Phosphatase 45 U/L (38-126); Anion Gap 5 mmol/L; Blood Urea Nitrogen 12 mg/dL (7-17); Calcium 8.1 mg/dL (8.4-10.2); Carbon Dioxide 30 mmol/L (22-30); Chloride 105 mmol/L (98-107); Glucose 120 mg/dL (74-99); Non-African American GFR(CKD) 87 (>60 ml/min/1.73 sqM); Sodium 140 mmol/L (137-145); Total Bilirubin 0.9 mg/dL (0.2-1.3); Total Protein 6.2 g/dL (6.3-8.2)
[2020-06-22] MEDS: TAMSULOSIN 0.4 MG CAP.ER.24H PO SCH (09:37)
[2020-06-22] MEDS: ASCORBIC ACID 500 MG TAB PO SCH (09:37)
[2020-06-22] MEDS: LEVOFLOXACIN 500 MG TAB PO SCH (09:37)
[2020-06-22] MEDS: GABAPENTIN 300 MG CAP PO SCH ×2 (09:37→20:28)
[2020-06-22] MEDS: ASPIRIN 81 MG PO SCH (09:37)
[2020-06-22] MEDS: METOPROLOL TARTRATE 12.5 MG TAB PO SCH ×2 (09:37→20:28)
[2020-06-22] MEDS: ZINC SULFATE 220 MG CAP PO SCH (09:38)
[2020-06-22] MEDS: SODIUM CHLORIDE 0.9% 1,000 ML IV SCH ×2 (10:50→14:50)
[2020-06-22 11:46] LABS: Glucose,Whole Blood 109 mg/dL (75-99)
--- NOTE | 2020-06-22 12:58 | P.PN ---
Subjective This is a pleasant 79-year-old female past medical history hypertension, diabetes mellitus and dyslipidemia. She is currently being treated for Covid 19. Echocardiogram obtained reveals mildly impaired LV systolic function with ejection fraction 45-50% with basal inferior, basal inferior septal and mid inferior LV wall motion hypokinesia, mild aortic stenosis with a mean gradient of 3 mmHg, mild MR and mild TR. Blood pressure 132/68 heart rate 67 afebrile maintaining oxygen saturation on nasal cannula. Currently maintained on aspirin 81 mg daily, atorvastatin 40 mg daily and metoprolol 12.5 mg twice a day. Physical exam was not completed secondary to limited evaluation due to Covid 19. ASSESSMENT Acute Covid 19 Elevated troponin secondary to type II myocardial infarction, oxygen supply and demand mismatch Hypertension Dyslipidemia Diabetes mellitus PLAN Add lisinopril 5 mg daily to her regimen. Continue aspirin, atorvastatin and beta blockers as previously ordered. Given current COVID-19 infection we recommend continuing on maximum medical therapy and will pursue catheterization in the outpatient setting. Follow up with Dr. Cates in 3 weeks. Nurse Practitioner note has been reviewed, I agree with a documented findings and plan of care. Patient was seen and examined. Objective - Vital Signs Vital signs: Vital Signs Temp 98.1 F 06/22/20 11:28 Pulse 67 06/22/20 11:28 Resp 18 06/22/20 11:28 BP 132/68 06/22/20 11:28 Pulse Ox 97 06/22/20 11:28 Intake & Output 06/21/20 06/22/20 06/22/20 18:59 06:59 18:59 Intake Total 1580 240 Output Total 600 1200 500 Balance 980 -1200 -260 Weight 86.5 kg Intake: IV 600 Sodium Chloride 0.9% 1, 600 000 ml @ 75 mls/hr IV . [id number] OJ Rx#:[id number] Oral 980 240 Output: Urine 600 1200 500 Other: Voiding Method Indwelling Catheter Indwelling Catheter Indwelling Catheter # Voids 0 0 # Bowel Movements 1 - Labs CBC & Chem 7: 06/22/20 08:00 06/22/20 08:00 Labs: Abnormal Lab Results - Last 24 Hours (Table) 06/21/20 06/21/20 06/22/20 Range/Units 16:34 20:17 06:34 WBC (3.8-10.6) k/uL Glucose (74-99) mg/dL POC Glucose (mg/dL) 138 H 140 H 116 H (75-99) mg/dL Calcium (8.4-10.2) mg/dL AST (14-36) U/L ALT (4-34) U/L Total Protein (6.3-8.2) g/dL Albumin (3.5-5.0) g/dL 06/22/20 06/22/20 06/22/20 Range/Units 08:00 08:00 11:38 WBC 3.7 L (3.8-10.6) k/uL Glucose 120 H (74-99) mg/dL POC Glucose (mg/dL) 109 H (75-99) mg/dL Calcium 8.1 L (8.4-10.2) mg/dL AST 75 H (14-36) U/L ALT 40 H (4-34) U/L Total Protein 6.2 L (6.3-8.2) g/dL Albumin 3.3 L (3.5-5.0) g/dL Microbiology - Last 24 Hours (Table) 06/19/20 06:43 Blood Culture - Preliminary Blood No Growth after 72 hours 06/19/20 19:50 Urine Culture - Final Urine,Voided
--- NOTE | 2020-06-22 13:02 | P.PN ---
Subjective Principal diagnosis: Pneumonia with elevated cardiac Enzymes. The patient is 79-year-old white female with known history of hypertension who is now admitted for coronavirus/Covid pneumonia with chest pain. She is much improved today since yesterday. A long discussion with her patient advocate yesterday. We will DC Hdez and increase ambulation. Objective - Vital Signs Vital signs: Vital Signs Temp 98.1 F 06/22/20 11:28 Pulse 67 06/22/20 11:28 Resp 18 06/22/20 11:28 BP 132/68 06/22/20 11:28 Pulse Ox 97 06/22/20 11:28 Intake & Output 06/21/20 06/22/20 06/22/20 18:59 06:59 18:59 Intake Total 1580 240 Output Total 600 1200 500 Balance 980 -1200 -260 Weight 86.5 kg Intake: IV 600 Sodium Chloride 0.9% 1, 600 000 ml @ 75 mls/hr IV . [id number] OJ Rx#:[id number] Oral 980 240 Output: Urine 600 1200 500 Other: Voiding Method Indwelling Catheter Indwelling Catheter Indwelling Catheter # Voids 0 0 # Bowel Movements 1 - Constitutional General appearance: Present: average body habitus - EENT Eyes: Absent: abnormal pupil - Neck Neck: Absent: lymphadenopathy - Respiratory Respiratory: bilateral: CTA - Cardiovascular Rhythm: regular Heart sounds: normal: S1, S2 Abnormal Heart Sounds: Absent: S3 Gallop - Gastrointestinal General gastrointestinal: Present: soft - Labs CBC & Chem 7: 06/22/20 08:00 06/22/20 08:00 Labs: Abnormal Lab Results - Last 24 Hours (Table) 06/21/20 06/21/20 06/22/20 Range/Units 16:34 20:17 06:34 WBC (3.8-10.6) k/uL Glucose (74-99) mg/dL POC Glucose (mg/dL) 138 H 140 H 116 H (75-99) mg/dL Calcium (8.4-10.2) mg/dL AST (14-36) U/L ALT (4-34) U/L Total Protein (6.3-8.2) g/dL Albumin (3.5-5.0) g/dL 06/22/20 06/22/20 06/22/20 Range/Units 08:00 08:00 11:38 WBC 3.7 L (3.8-10.6) k/uL Glucose 120 H (74-99) mg/dL POC Glucose (mg/dL) 109 H (75-99) mg/dL Calcium 8.1 L (8.4-10.2) mg/dL AST 75 H (14-36) U/L ALT 40 H (4-34) U/L Total Protein 6.2 L (6.3-8.2) g/dL Albumin 3.3 L (3.5-5.0) g/dL Microbiology - Last 24 Hours (Table) 06/19/20 06:43 Blood Culture - Preliminary Blood No Growth after 72 hours 06/19/20 19:50 Urine Culture - Final Urine,Voided Assessment and Plan (1) COVID-19 Current Visit: Yes Status: Acute Code(s): U07.1 - COVID-19 SNOMED Code(s): 037527149 (2) Elevated troponin Current Visit: Yes Status: Acute Code(s): R77.8 - OTHER SPECIFIED ABNORMA LITIES OF PLASMA PROTEINS SNOMED Code(s): 186429401 (3) Shortness of breath Current Visit: Yes Status: Acute Code(s): R06.02 - SHORTNESS OF BREATH SNOMED Code(s): 328742982 (4) Pneumonia Current Visit: Yes Status: Acute Code(s): J18.9 - PNEUMONIA, UNSPECIFIED ORGANISM SNOMED Code(s): 612330108 Plan: Continue supportive care. Check CBC and CMP in the a.m. Review her appropriate improvement and voiding capabilities, we will increase activity and hopefully anticipate discharge in a.m.
[2020-06-22] MEDS: lisinopriL 5 MG TAB PO SCH (15:09)
[2020-06-22 16:52] LABS: Glucose,Whole Blood 110 mg/dL (75-99)
--- NOTE | 2020-06-22 19:34 | P.PN ---
Subjective Progress Note Date: 06/22/20 Principal diagnosis: Community-acquired pneumonia Recent covid 19 infection Mediastinal lymphadenopathy likely reactive Elevated troponin Hypertension hypertensive cardiovascular disease 06/22/2020, patient seen eval reexamined during the rounds labs reviewed medications reviewed, remains afebrile and oxygen saturation is 97% 2 L oxygen, she was noted to have saturation of 92% room air, we will add Decadron 6 mg daily for 10 days of's her off of IV REMdesivir This is a 79-year-old female with multiple medical problems including hypertension hypertensive cardiovascular disease along with diabetes mellitus, for 5 days patient is living shortness of breath cough and dyspnea with intermittent fever at home, patient was diagnosed with cold with 19 infection about a week ago, remained short of breath on supplemental oxygen, patient underwent computed tomography scan of his chest no PE was seen left hilar lymphadenopathy and subcarinal right hilar lymph nodes are seen along with left lower lobe infiltrate, currently patient is being treated with the Levaquin along with continuation of home medications along gentle hydration heparin has been discontinued she denies any chest pain, oxygen saturation is 98% on 2 L, hemodynamic status stable, troponin level elevated suggestive of non-Q-wave IA Objective - Vital Signs Vital signs: Vital Signs Temp 97.7 F 06/22/20 16:00 Pulse 83 06/22/20 16:00 Resp 18 06/22/20 16:00 BP 144/64 06/22/20 16:00 Pulse Ox 92 L 06/22/20 16:00 Intake & Output 06/22/20 06/22/20 06/23/20 06:59 18:59 06:59 Intake Total 360 Output Total 1200 500 Balance -1200 -140 Weight 86.5 kg Intake: Oral 360 Output: Urine 1200 500 Other: Voiding Method Indwelling Catheter Indwelling Catheter # Voids 1 # Bowel Movements 1 - Exam - Constitutional General appearance: average body habitus, disheveled - EENT Eyes: PERRLA Ears: bilateral: normal - Neck Neck: normal ROM Carotids: bilateral: upstroke normal - Respiratory Respiratory: bilateral: CTA - Cardiovascular Rhythm: regular Heart sounds: normal: S1, S2 - Gastrointestinal General gastrointestinal: soft - Neurologic Neurologic: CNII-XII intact - Musculoskeletal Musculoskeletal: gait normal, generalized weakness - Psychiatric Psychiatric: A&O x's 3, appropriate affect, intact judgment & insight - Labs CBC & Chem 7: 06/22/20 08:00 06/22/20 08:00 Labs: Abnormal Lab Results - Last 24 Hours (Table) 06/21/20 06/22/20 06/22/20 Range/Units 20:17 06:34 08:00 WBC 3.7 L (3.8-10.6) k/uL Glucose (74-99) mg/dL POC Glucose (mg/dL) 140 H 116 H (75-99) mg/dL Calcium (8.4-10.2) mg/dL AST (14-36) U/L ALT (4-34) U/L Total Protein (6.3-8.2) g/dL Albumin (3.5-5.0) g/dL 06/22/20 06/22/20 06/22/20 Range/Units 08:00 11:38 16:36 WBC (3.8-10.6) k/uL Glucose 120 H (74-99) mg/dL POC Glucose (mg/dL) 109 H 110 H (75-99) mg/dL Calcium 8.1 L (8.4-10.2) mg/dL AST 75 H (14-36) U/L ALT 40 H (4-34) U/L Total Protein 6.2 L (6.3-8.2) g/dL Albumin 3.3 L (3.5-5.0) g/dL Microbiology - Last 24 Hours (Table) 06/19/20 06:43 Blood Culture - Preliminary Blood No Growth after 72 hours Assessment and Plan Assessment: Community-acquired pneumonia Recent covid 19 infection with ongoing inflammatory response Mediastinal lymphadenopathy likely reactive Elevated troponin Hypertension hypertensive cardiovascular disease Plan: Agree with continuation of the Levaquin for 7-10 days Would recommend Hexadrol/Decadron 6 mg daily for 10 days as well Deep breathing exercise incentive spirometry Prone positioning For lymphadenopathy would recommend follow-up in outpatient basis will repeat another CAT scan in 3-6 months Time with Patient: Greater than 30
[2020-06-22] MEDS: MELATONIN 3 MG TABLET PO SCH (20:28)
[2020-06-22] MEDS: dexAMETHasone 2 MG TAB PO SCH (20:28)
[2020-06-22] MEDS: ATORVASTATIN 40 MG TAB PO SCH (20:28)
[2020-06-22 20:55] LABS: Glucose,Whole Blood 128 mg/dL (75-99)
[2020-06-23 06:15] LABS: Glucose,Whole Blood 163 mg/dL (75-99)
[2020-06-23] MEDS: INSULIN ASPART (NovoLOG) 100 UNIT/ML VIAL SQ SCH (06:22)
[2020-06-23] MEDS: SODIUM CHLORIDE 0.9% 1,000 ML IV SCH (07:37)
--- NOTE | 2020-06-23 08:16 | P.DS ---
Providers Date of admission: 06/19/20 10:33 Attending physician: Marcelino Grande Consults: 06/19/20 09:31 Consult Physician Routine Consulting Provider: [facility] Consult Reason/Comments: elevated troponin Do you want consulting provider notified?: Yes 06/20/20 19:33 Consult Physician Routine Consulting Provider: Evaristo Boyd Consult Reason/Comments: covid pna Do you want consulting provider notified?: Yes, Notify in am Primary care physician: Marcelino Grande - Discharge Diagnosis(es) (1) COVID-19 Current Visit: Yes Status: Acute (2) Elevated troponin Current Visit: Yes Status: Acute (3) Shortness of breath Current Visit: Yes Status: Acute (4) Pneumonia Current Visit: Yes Status: Acute Hospital Course: This discharge summary 79-year-old white female essentially admitted for atypical type chest pain. Myocardial infarctions ruled out. Echocardiogram was done. But she is also positive for cocaine. The patient is discharged in stable condition with steroids and antibiotic treatment. The patient will follow-up with me in about 5-7 days. Patient Condition at Discharge: Fair Plan - Discharge Summary Discharge Rx Participant: No New Discharge Prescriptions: New Tamsulosin [Flomax] 0.4 mg PO PC-BRKFST #30 cap.er.24h dexAMETHasone [Hexadrol] 6 mg PO DAILY #18 tab Levofloxacin [Levaquin] 500 mg PO DAILY #7 tab Atorvastatin [Lipitor] 40 mg PO HS #30 tab Metoprolol Tartrate [Lopressor] 12.5 mg PO BID #60 tab Zinc Sulfate [Orazinc] 220 mg PO DAILY 30 Days #30 cap lisinopriL [Zestril] 5 mg PO DAILY #30 tab Continue [place]-3 Fatty Acids/Fish Oil [Fish Oil 1,000 mg Softgel] 1 cap PO DAILY Glucos Sul 2Kcl/MSM/Chond/C/Mn [Glucosamine Chondroitin Cap] 1 tab PO BID Vitamin B Complex 1 tab PO DAILY Calcium Carbonate/Vitamin D3 [Calcium 600-D3 20Mcg(800 Unit)] 1 tab PO BID Ascorbic Acid [Vitamin C] 500 mg PO DAILY glipiZIDE/METFORMIN HCL [glipiZIDE/METFORMIN HCL 2.5-500 mg] 1 tab PO DAILY Potassium Chloride 10 meq PO QAM Gabapentin [Neurontin] 300 mg PO BID Multivit-Min/Iron/Folic/Lutein [Centrum Silver Women Tablet] 1 tab PO DAILY Metanx Supplement 2 cap PO BID Discontinued Lisinopril-Hctz 20-25 mg [Zestoretic 20-25] 1 tab PO DAILY Discharge Medication List Ascorbic Acid [Vitamin C] 500 mg PO DAILY 12/09/19 [History] Calcium Carbonate/Vitamin D3 [Calcium 600-D3 20Mcg(800 Unit)] 1 tab PO BID 12/09/19 [History] Gabapentin [Neurontin] 300 mg PO BID 12/09/19 [History] Glucos Sul 2Kcl/MSM/Chond/C/Mn [Glucosamine Chondroitin Cap] 1 tab PO BID 12/09/19 [History] Multivit-Min/Iron/Folic/Lutein [Centrum Silver Women Tablet] 1 tab PO DAILY 12/09/19 [History] [place]-3 Fatty Acids/Fish Oil [Fish Oil 1,000 mg Softgel] 1 cap PO DAILY 12/09/19 [History] Potassium Chloride 10 meq PO QAM 12/09/19 [History] Vitamin B Complex 1 tab PO DAILY 12/09/19 [History] glipiZIDE/METFORMIN HCL [glipiZIDE/METFORMIN HCL 2.5-500 mg] 1 tab PO DAILY 12/09/19 [History] Metanx Supplement 2 cap PO BID 06/19/20 [History] Atorvastatin [Lipitor] 40 mg PO HS #30 tab 06/23/20 [Rx] Levofloxacin [Levaquin] 500 mg PO DAILY #7 tab 06/23/20 [Rx] Metoprolol Tartrate [Lopressor] 12.5 mg PO BID #60 tab 06/23/20 [Rx] Tamsulosin [Flomax] 0.4 mg PO PC-BRKFST #30 cap.er.24h 06/23/20 [Rx] Zinc Sulfate [Orazinc] 220 mg PO DAILY 30 Days #30 cap 06/23/20 [Rx] dexAMETHasone [Hexadrol] 6 mg PO DAILY #18 tab 06/23/20 [Rx] lisinopriL [Zestril] 5 mg PO DAILY #30 tab 06/23/20 [Rx] Follow up Appointment(s)/Referral(s): Marcelino Grande MD [Primary Care Provider] - 1-2 days Anastasiia Cates MD [STAFF PHYSICIAN] - 3 Weeks Activity/Diet/Wound Care/Special Instructions: Patient will need Wheel Chair van ride home.
[2020-06-23 08:46] LABS: HCT 40.2 % (34.0-46.0); HGB 12.9 gm/dL (11.4-16.0); MCH 28.4 pg (25.0-35.0); MCHC 32.2 g/dL (31.0-37.0); MCV 88.2 fL (80.0-100.0); Mean Platelet Volume 7.4; Platelet Count 354 k/uL (150-450); RBC 4.56 m/uL (3.80-5.40); RDW 13.8 % (11.5-15.5); WBC 2.3 k/uL (3.8-10.6)
[2020-06-23 09:00] VITALS: BP 157/88; PULSE 88; RESP 20; TEMP 97.7
[2020-06-23] MEDS: dexAMETHasone 2 MG TAB PO SCH (09:02)
[2020-06-23] MEDS: ASPIRIN 81 MG PO SCH (09:02)
[2020-06-23] MEDS: LEVOFLOXACIN 500 MG TAB PO SCH (09:03)
[2020-06-23] MEDS: ZINC SULFATE 220 MG CAP PO SCH (09:03)
[2020-06-23] MEDS: GABAPENTIN 300 MG CAP PO SCH (09:03)
[2020-06-23] MEDS: TAMSULOSIN 0.4 MG CAP.ER.24H PO SCH (09:03)
[2020-06-23] MEDS: lisinopriL 5 MG TAB PO SCH (09:03)
[2020-06-23] MEDS: METOPROLOL TARTRATE 12.5 MG TAB PO SCH (09:03)
[2020-06-23] MEDS: ASCORBIC ACID 500 MG TAB PO SCH (09:03)
[2020-06-23 09:08] LABS: ALT 54 U/L (4-34); AST 85 U/L (14-36); African American GFR (CKD) >90 (>60 ml/min/1.73 sqM); Albumin 3.7 g/dL (3.5-5.0); Alkaline Phosphatase 50 U/L (38-126); Anion Gap 8 mmol/L; Blood Urea Nitrogen 16 mg/dL (7-17); Calcium 8.6 mg/dL (8.4-10.2); Carbon Dioxide 29 mmol/L (22-30); Chloride 106 mmol/L (98-107); Glucose 252 mg/dL (74-99); Non-African American GFR(CKD) 88 (>60 ml/min/1.73 sqM); Potassium 4.3 mmol/L (3.5-5.1); Sodium 143 mmol/L (137-145); Total Bilirubin 1.1 mg/dL (0.2-1.3); Total Protein 6.8 g/dL (6.3-8.2)
--- NOTE | 2020-06-23 11:16 | P.PN ---
Subjective Progress Note Date: 06/23/20 Principal diagnosis: Community-acquired pneumonia Recent covid 19 infection Mediastinal lymphadenopathy likely reactive Elevated troponin Hypertension hypertensive cardiovascular disease 06/23/2020, patient seen eval reexamined labs reviewed medications reviewed as, remains afebrile oxygen saturation is mid 90s on room air, patient is being planned for possible discharge off of IV Remdesivir can finish Decadron orally at home 06/22/2020, patient seen eval reexamined during the rounds labs reviewed medications reviewed, remains afebrile and oxygen saturation is 97% 2 L oxygen, she was noted to have saturation of 92% room air, we will add Decadron 6 mg daily for 10 days of's her off of IV REMdesivir This is a 79-year-old female with multiple medical problems including hypertension hypertensive cardiovascular disease along with diabetes mellitus, for 5 days patient is living shortness of breath cough and dyspnea with intermittent fever at home, patient was diagnosed with cold with 19 infection about a week ago, remained short of breath on supplemental oxygen, patient underwent computed tomography scan of his chest no PE was seen left hilar lymphadenopathy and subcarinal right hilar lymph nodes are seen along with left lower lobe infiltrate, currently patient is being treated with the Levaquin along with continuation of home medications along gentle hydration heparin has been discontinued she denies any chest pain, oxygen saturation is 98% on 2 L, hemodynamic status stable, troponin level elevated suggestive of non-Q-wave ND Objective - Vital Signs Vital signs: Vital Signs Temp 97.7 F 06/23/20 08:00 Pulse 88 06/23/20 08:00 Resp 20 06/23/20 08:00 BP 157/88 06/23/20 08:00 Pulse Ox 95 06/23/20 08:00 Intake & Output 06/22/20 06/23/20 06/23/20 18:59 06:59 18:59 Intake Total 360 180 240 Output Total 500 Balance -140 180 240 Weight 84 kg Intake: Oral 360 180 240 Output: Urine 500 Other: Voiding Method Indwelling Catheter # Voids 1 1 # Bowel Movements 1 - Exam - Constitutional General appearance: average body habitus, disheveled - EENT Eyes: PERRLA Ears: bilateral: normal - Neck Neck: normal ROM Carotids: bilateral: upstroke normal - Respiratory Respiratory: bilateral: CTA - Cardiovascular Rhythm: regular Heart sounds: normal: S1, S2 - Gastrointestinal General gastrointestinal: soft - Neurologic Neurologic: CNII-XII intact - Musculoskeletal Musculoskeletal: gait normal, generalized weakness - Psychiatric Psychiatric: A&O x's 3, appropriate affect, intact judgment & insight - Labs CBC & Chem 7: 06/23/20 08:20 06/23/20 08:20 Labs: Abnormal Lab Results - Last 24 Hours (Table) 06/22/20 06/22/20 06/22/20 Range/Units 11:38 16:36 20:53 WBC (3.8-10.6) k/uL Glucose (74-99) mg/dL POC Glucose (mg/dL) 109 H 110 H 128 H (75-99) mg/dL AST (14-36) U/L ALT (4-34) U/L 06/23/20 06/23/20 06/23/20 Range/Units 06:13 08:20 08:20 WBC 2.3 L (3.8-10.6) k/uL Glucose 252 H (74-99) mg/dL POC Glucose (mg/dL) 163 H (75-99) mg/dL AST 85 H (14-36) U/L ALT 54 H (4-34) U/L Microbiology - Last 24 Hours (Table) 06/19/20 06:43 Blood Culture - Preliminary Blood No Growth after 96 hours Assessment and Plan Assessment: Community-acquired pneumonia Recent covid 19 infection with ongoing inflammatory response Mediastinal lymphadenopathy likely reactive Elevated troponin Hypertension hypertensive cardiovascular disease Agree with discharge planning patient can finish Decadron 6 mg daily for 10 days at home Plan: Agree with continuation of the Levaquin for 7-10 days Would recommend Hexadrol/Decadron 6 mg daily for 10 days as well Deep breathing exercise incentive spirometry Prone positioning For lymphadenopathy would recommend follow-up in outpatient basis will repeat another CAT scan in 3-6 months Time with Patient: Greater than 30
--- NOTE | 2020-06-25 07:08 | CDI ---
Documentation Clarification Form Date: 06/25/2020 06:51:00 AM From: Alecia Savage Phone: If you have a question about this query, please contact Esther Nogueira, [employer] at [phone] between 8am and 5pm. Admit Date: 06/19/2020 10:33:00 AM Patient Name: Marline Anderson Visit Number: [id number] Discharge Date: 06/23/2020 11:56:00 AM ATTENTION: The Clinical Documentation Specialists (CDI) and [facility] Coding Staff appreciate your assistance in clarifying documentation. Please respond to the clarification below the line at the bottom and electronically sign. The CDI & [facility] Coding staff will review the response and follow-up if needed. Please note: Queries are made part of the Legal Health Record. If you have any questions, please contact the author of this message via ITS. Dr. Marcelino Grande Per cardiology consult "suspect type II TX due to oxygen supply and demand mismatch. Per Pulmonary 06/23, 06/22. 06/21, PN's. Elevated troponins suggestive of NSTEMI. Diagnosis of TX not carried through your documentation. Please clarify if patient had Type II TX, NSTEMI or was TX ruled out. Patient presented with troponin of: 3.920, 3.090, 2.750 Patient history/risk factors: HTN cardiovascular disease Treatment: IV heparin, add aspirin, metoprofol In your professional opinion, can you please clarify if patient had Type II TX as documented by cardiology, NSTEMI as documented by pulmonary or was TX ruled out. NSTEMI Type II TX TX ruled out -This is the correct diagnosis Other, please specify Unable to determine MTDD
== END 2020-06-23 11:56 | disposition home or self-care (01) | DRG 177 ==
LOC: EC 05:53 → 3SCARD 10:33
PROVIDERS: ADMIT Family Medicine; ATTEND Family Medicine
PROC: XW033E5 Introduction of Remdesivir Anti-infective into Peripheral Vein, Percutaneous Approach, New Technology Group 5 (ICD-10-PCS; principal; 2020-06-19)
DX: U07.1 COVID-19 (principal); J12.89 Other viral pneumonia; J98.11 Atelectasis; E11.9 Type 2 diabetes mellitus without complications; E78.5 Hyperlipidemia, unspecified; I11.9 Hypertensive heart disease without heart failure; R59.1 Generalized enlarged lymph nodes; Z88.0 Allergy status to penicillin; Z91.030 Bee allergy status; Z79.82 Long term (current) use of aspirin; Z79.899 Other long term (current) drug therapy; Z83.3 Family history of diabetes mellitus; Z90.711 Acquired absence of uterus with remaining cervical stump; Z96.641 Presence of right artificial hip joint; Z90.89 Acquired absence of other organs
CPT/HCPCS: 36415; 71045; 71275; 80053; 81001; 83605; 83735; 84484; 85025; 85027; 85379; 85610; 85730; 86140; 87040; 87086; 93005; 93306; 96365; 96366; 96376; 99285

== ENCOUNTER 2020-06-26 16:30 | Emergency (ER) | payer MEDICARE, OTHER ==
[2020-06-26 16:34] VITALS: TEMP 99
--- NOTE | 2020-06-26 16:54 | ED ---
General Adult HPI - General Chief complaint: Allergic Reaction Stated complaint: Allergic reaction Time Seen by Provider: 06/26/20 16:35 Source: patient, EMS Mode of arrival: EMS Limitations: no limitations - History of Present Illness Initial comments: Is an 79-year-old female with a history of hypertension, hyperlipidemia, diabetes and recent admission for chest pain and [place] pneumonia. The patient presents emergent department today because of worsening meaning dyspnea over the last 2 days and also a rash to her cheeks and chest. The patient states that she was discharged from the hospital 3 days ago. She feels that her breathing is about the same as when she left however it was noted by the caregivers at her facility that she was breathing more quickly. The patient does admit to feeling anxious which she does not have a history of. She states that she then developed this rash on her face and her chest as well over the last couple of days. She states it does not itch. She has no sensation of throat closing. She does admit to little bit of shortness of breath however no chest pain. No fevers or chills. No nausea or vomiting. No abdominal pain. No dark or bloody stools. The patient really denies any other complaints. There is concern for possible ALLERGIC reaction by EMS and at the facility which is why she was sent in. The patient was discharged on Levaquin. Patient is not taking any medications that she has a known ALLERGY to. - Related Data Home Medications Medication Instructions Recorded Confirmed Ascorbic Acid [Vitamin C] 500 mg PO DAILY 12/09/19 06/26/20 Calcium Carbonate/Vitamin D3 1 tab PO BID 12/09/19 06/26/20 [Calcium 600-D3 20Mcg(800 Unit)] Gabapentin [Neurontin] 300 mg PO BID 12/09/19 06/26/20 Glucos Sul 2Kcl/MSM/Chond/C/Mn 1 tab PO BID 12/09/19 06/26/20 [Glucosamine Chondroitin Cap] Multivit-Min/Iron/Folic/Lutein 1 tab PO DAILY 12/09/19 06/26/20 [Centrum Silver Women Tablet] [place]-3 Fatty Acids/Fish Oil [Fish 1 cap PO DAILY 12/09/19 06/26/20 Oil 1,000 mg Softgel] Vitamin B Complex 1 tab PO DAILY 12/09/19 06/26/20 glipiZIDE/METFORMIN HCL 1 tab PO BID 12/09/19 06/26/20 [glipiZIDE/METFORMIN HCL 2.5-500 mg] Metanx Supplement 2 cap PO BID 06/19/20 06/26/20 Metoprolol Tartrate [Lopressor] 12.5 mg PO BID 06/26/20 06/26/20 Potassium Chloride 10 meq PO DAILY 06/26/20 06/26/20 dexAMETHasone [Hexadrol] See Taper PO DAILY 06/26/20 06/26/20 Previous Rx's Medication Instructions Recorded Atorvastatin [Lipitor] 40 mg PO HS #30 tab 06/23/20 Levofloxacin [Levaquin] 500 mg PO DAILY #7 tab 06/23/20 Tamsulosin [Flomax] 0.4 mg PO PC-BRKFST #30 cap.er.24h 06/23/20 Zinc Sulfate [Orazinc] 220 mg PO DAILY 30 Days #30 cap 06/23/20 lisinopriL [Zestril] 5 mg PO DAILY #30 tab 06/23/20 Allergies Allergy/AdvReac Type Severity Reaction Status Date / Time bee venom protein (honey bee) Allergy Severe Swelling Verified 06/26/20 18:19 ampicillin Allergy Rash/Hives Verified 06/26/20 18:19 Review of Systems ROS Statement: Those systems with pertinent positive or pertinent negative responses have been documented in the HPI. ROS Other: All systems not noted in ROS Statement are negative. Past Medical History Past Medical History: Cancer, Diabetes Mellitus, Hypertension, Pneumonia Additional Past Medical History / Comment(s): Left breast History of Any Multi-Drug Resistant Organisms: None Reported Past Surgical History: Adenoidectomy, Breast Surgery, Hysterectomy, Orthopedic Surgery, Tonsillectomy Additional Past Surgical History / Comment(s): partial hysterectomy. right total hip replacement Past Anesthesia/Blood Transfusion Reactions: No Reported Reaction Past Psychological History: No Psychological Hx Reported Smoking Status: Never smoker Past Alcohol Use History: None Reported Past Drug Use History: None Reported - Past Family History Mother Family Medical History: No Reported History Father Family Medical History: No Reported History Sister(s) Family Medical History: Diabetes Mellitus General Exam - General Exam Comments Initial Comments: Constitutional: Awake alert appears anxious Head: Normocephalic atraumatic , there is some erythema to bilateral cheeks which does not appear urticarial. Eyes: no conjunctival injection No scleral icterus EOMI Neck: No JVD Supple the patient has some erythema extending in the midline of the anterior neck going down into the suprasternal notch area. Again does not appear urticarial. Heart: Regular rate rhythm normal S1-S2 no murmurs Lungs: Clear to auscultation bilaterally No wheezing No rales, there is decreased breath sounds on the left Abdomen: Soft nondistended nontender Extremities: Non edematous DP pulses intact Radial pulses intact Neuro: A&Ox3 No focal neurologic deficits Psych: Appropriate mood and affect Limitations: no limitations Course Vital Signs 06/26/20 06/26/20 16:31 17:54 Temperature 99.0 F Pulse Rate 92 88 Respiratory 20 18 Rate Blood Pressure 178/87 176/80 O2 Sat by Pulse 95 95 Oximetry EKG Findings - EKG Comments: EKG Findings:: EKG showing normal sinus rhythm with a rate of 87. There is no abnormal ST segment changes or T-wave inversions. QTC is 478. Other intervals normal. No ectopy. Medical Decision Making - Medical Decision Making Is an 79-year-old female who presents emergency department for shortness of breath and rash. The patient did not appear to be having an ALLERGIC reaction on my examination. The patient complained of significant anxiety which was resolving since she got to the emergency department. The patient had EKG performed that was unremarkable. Chest x-ray did not show any acute abdomen now these. Blood work was reviewed and did show an elevated d-dimer however was negative based on age ingested d-dimer. Troponin was significantly decreased from when she was in the hospital. She did have a full cardiac workup. At this time the patient not having any chest pain. I feel that her symptoms are resolved at this point and she would like to go home. I'm going to send her back to her nursing facility. She can follow-up with her primary doctor as an outpatient. Can return she has any worsening or recurring symptoms reductions were answered. - Lab Data Result diagrams: 06/26/20 17:06/26/20 17:20 Lab Results 06/26/20 06/26/20 06/26/20 Range/Units 17:20 17:20 17:20 WBC 8.9 (3.8-10.6) k/uL RBC 4.47 (3.80-5.40) m/uL Hgb 12.7 (11.4-16.0) gm/dL Hct 38.6 (34.0-46.0) % MCV 86.4 (80.0-100.0) fL MCH 28.5 (25.0-35.0) pg MCHC 33.0 (31.0-37.0) g/dL RDW 13.8 (11.5-15.5) % Plt Count 511 H (150-450) k/uL MPV 7.2 Neutrophils % 86 % Lymphocytes % 8 % Monocytes % 4 % Eosinophils % 1 % Basophils % 0 % Neutrophils # 7.6 (1.3-7.7) k/uL Lymphocytes # 0.7 L (1.0-4.8) k/uL Monocytes # 0.4 (0-1.0) k/uL Eosinophils # 0.1 (0-0.7) k/uL Basophils # 0.0 (0-0.2) k/uL PT 11.4 (9.0-12.0) sec INR 1.1 (<1.2) APTT 27.4 (22.0-30.0) sec D-Dimer 0.71 H (<0.60) mg/L FEU Sodium 141 (137-145) mmol/L Potassium 4.6 (3.5-5.1) mmol/L Chloride 110 H (98-107) mmol/L Carbon Dioxide 21 L (22-30) mmol/L Anion Gap 10 mmol/L BUN 21 H (7-17) mg/dL Creatinine 0.60 (0.52-1.04) mg/dL Est GFR (CKD-EPI)AfAm >90 (>60 ml/min/1.73 sqM) Est GFR (CKD-EPI)NonAf 86 (>60 ml/min/1.73 sqM) Glucose 216 H (74-99) mg/dL Calcium 9.3 (8.4-10.2) mg/dL Total Bilirubin 0.9 (0.2-1.3) mg/dL AST 43 H (14-36) U/L ALT 45 H (4-34) U/L Alkaline Phosphatase 61 (38-126) U/L Troponin I (0.000-0.034) ng/mL NT-Pro-B Natriuret Pep pg/mL Total Protein 6.7 (6.3-8.2) g/dL Albumin 3.7 (3.5-5.0) g/dL 06/26/20 06/26/20 Range/Units 17:20 17:20 WBC (3.8-10.6) k/uL RBC (3.80-5.40) m/uL Hgb (11.4-16.0) gm/dL Hct (34.0-46.0) % MCV (80.0-100.0) fL MCH (25.0-35.0) pg MCHC (31.0-37.0) g/dL RDW (11.5-15.5) % Plt Count (150-450) k/uL MPV Neutrophils % % Lymphocytes % % Monocytes % % Eosinophils % % Basophils % % Neutrophils # (1.3-7.7) k/uL Lymphocytes # (1.0-4.8) k/uL Monocytes # (0-1.0) k/uL Eosinophils # (0-0.7) k/uL Basophils # (0-0.2) k/uL PT (9.0-12.0) sec INR (<1.2) APTT (22.0-30.0) sec D-Dimer (<0.60) mg/L FEU Sodium (137-145) mmol/L Potassium (3.5-5.1) mmol/L Chloride (98-107) mmol/L Carbon Dioxide (22-30) mmol/L Anion Gap mmol/L BUN (7-17) mg/dL Creatinine (0.52-1.04) mg/dL Est GFR (CKD-EPI)AfAm (>60 ml/min/1.73 sqM) Est GFR (CKD-EPI)NonAf (>60 ml/min/1.73 sqM) Glucose (74-99) mg/dL Calcium (8.4-10.2) mg/dL Total Bilirubin (0.2-1.3) mg/dL AST (14-36) U/L ALT (4-34) U/L Alkaline Phosphatase (38-126) U/L Troponin I 0.048 H* (0.000-0.034) ng/mL NT-Pro-B Natriuret Pep 2600 pg/mL Total Protein (6.3-8.2) g/dL Albumin (3.5-5.0) g/dL Disposition Clinical Impression: Shortness of breath Disposition: HOME SELF-CARE Condition: Stable Instructions (If sedation given, give patient instructions): Anxiety (ED) Is patient prescribed a controlled substance at d/c from ED?: No Referrals: Marcelino Grande MD [Primary Care Provider] - 1-2 days
--- NOTE | 2020-06-26 17:09 | XR ---
EXAMINATION TYPE: XR chest 1V portable DATE OF EXAM: 06/26/2020 COMPARISON: 06/19/2020 HISTORY: Short of breath TECHNIQUE: FINDINGS: There is some mild increased interstitial density left lung base. There is no heart failure . There is coarsening of interstitial markings. There are no hilar masses. Bony thorax is intact. IMPRESSION: Pulmonary interstitial fibrosis. Mild pleural reaction and scarring at the left lung base . No significant change.
[2020-06-26] MEDS ORDERED: diphenhydrAMINE 50 MG/ML 1 ML VIAL IVP STA (17:27)
[2020-06-26 17:33] LABS: Basophils % (A) 0 %; Eosinophils # (A) 0.1 k/uL (0-0.7); Eosinophils % (A) 1 %; HCT 38.6 % (34.0-46.0); HGB 12.7 gm/dL (11.4-16.0); Lymphocytes # (A) 0.7 k/uL (1.0-4.8); Lymphocytes % (A) 8 %; MCH 28.5 pg (25.0-35.0); MCV 86.4 fL (80.0-100.0); Mean Platelet Volume 7.2; Monocytes # (A) 0.4 k/uL (0-1.0); Monocytes % (A) 4 %; Neutrophils # (A) 7.6 k/uL (1.3-7.7); Neutrophils % (A) 86 %; Platelet Count 511 k/uL (150-450); RBC 4.47 m/uL (3.80-5.40); RDW 13.8 % (11.5-15.5); WBC 8.9 k/uL (3.8-10.6)
[2020-06-26 17:48] LABS: INR 1.1 (<1.2); Partial Thromboplastin Time 27.4 sec (22.0-30.0); Prothrombin Time 11.4 sec (9.0-12.0)
[2020-06-26 17:51] LABS: D-Dimer 0.71 mg/L FEU (<0.60)
[2020-06-26 17:52] LABS: ALT 45 U/L (4-34); AST 43 U/L (14-36); African American GFR (CKD) >90 (>60 ml/min/1.73 sqM); Albumin 3.7 g/dL (3.5-5.0); Alkaline Phosphatase 61 U/L (38-126); Anion Gap 10 mmol/L; Blood Urea Nitrogen 21 mg/dL (7-17); Calcium 9.3 mg/dL (8.4-10.2); Carbon Dioxide 21 mmol/L (22-30); Chloride 110 mmol/L (98-107); Glucose 216 mg/dL (74-99); Non-African American GFR(CKD) 86 (>60 ml/min/1.73 sqM); Potassium 4.6 mmol/L (3.5-5.1); Sodium 141 mmol/L (137-145); Total Bilirubin 0.9 mg/dL (0.2-1.3); Total Protein 6.7 g/dL (6.3-8.2)
[2020-06-26 17:54] VITALS: BP 176/80; PULSE 88; RESP 18
== END 2020-06-26 19:00 | disposition home or self-care (01) ==
LOC: EC 16:30
DX: R06.02 Shortness of breath (principal); R21 Rash and other nonspecific skin eruption; R79.89 Other specified abnormal findings of blood chemistry; E11.9 Type 2 diabetes mellitus without complications; I10 Essential (primary) hypertension; Z79.84 Long term (current) use of oral hypoglycemic drugs; Z79.899 Other long term (current) drug therapy; Z91.030 Bee allergy status; Z88.0 Allergy status to penicillin; Z96.641 Presence of right artificial hip joint
CPT/HCPCS: 36415; 93005; 85379; 83880; 80053; 84484; 85025; 85610; 85730; 71045; 99285; 96374; J1200

== ENCOUNTER → 2020-07-01 | Outpatient (CLI) | payer MEDICARE, OTHER ==
--- NOTE | 2020-07-01 20:45 | CT ---
EXAMINATION TYPE: CT brain wo con DATE OF EXAM: 07/01/2020 HISTORY: Weakness, possible TIA. CT DLP: 1168 mGycm. Automated Exposure Control for Dose Reduction was Utilized. TECHNIQUE: CT scan of the head is performed without contrast. COMPARISON: None. FINDINGS: Motion artifact degradation particularly near skull base. There is no acute intracranial h emorrhage or midline shift identified. There is diffuse ventricular and sulcal prominence consistent with diffuse age-related cerebral atrophy. There is low-attenuation in the periventricular white mat ter consistent with chronic small vessel ischemic change. The globes are intact and the visualized s inuses are clear. IMPRESSION: No acute intracranial hemorrhage or midline shift. There is mild to moderate diffuse ag e-related cerebral atrophy and mild chronic small vessel ischemic change noted.
== END | disposition home or self-care (01) ==
LOC: RADCTMAIN 16:48
PROVIDERS: ATTEND Family Medicine
DX: G31.1 Senile degeneration of brain, not elsewhere classified (principal); I67.82 Cerebral ischemia
CPT/HCPCS: 70450

== ENCOUNTER 2020-07-02 23:17 | Emergency (ER) | payer MEDICARE, OTHER ==
[2020-07-02 23:27] VITALS: TEMP 98.1
[2020-07-02] MEDS ORDERED: SODIUM CHLORIDE 0.9% 1,000 ML IV STA (23:30)
--- NOTE | 2020-07-02 23:31 | ED ---
Weakness HPI - General Chief complaint: Shortness of Breath Stated complaint: weakness Time Seen by Provider: 07/02/20 23:30 Source: EMS, RN notes reviewed, old records reviewed Mode of arrival: EMS - History of Present Illness Initial comments: This is a 79-year-old female who is presenting with weakness. Patient comes from home. Multiple ER visits and inpatient hospitalizations within the last month. Also had CT scans in the last 2 days of brain. Patient himself aside f rom feeling weak and short of breath has no complaints. Patient has history of diabetes hypertension cancer. Absent left breast. Patient also just recovered from coronavirus. Concern patient is just not acting appropriately. Patient again is complains of weakness and shortness of breath MD Complaint: generalized weakness -: days(s) Location: generalized Severity: mild Severity scale (1-10): 3 Consistency: intermittent Improves with: none Worsens with: none Context: recent illness Associated Symptoms: denies other symptoms - Related Data Home Medications Medication Instructions Recorded Confirmed Ascorbic Acid [Vitamin C] 500 mg PO DAILY 12/09/19 06/26/20 Calcium Carbonate/Vitamin D3 1 tab PO BID 12/09/19 06/26/20 [Calcium 600-D3 20Mcg(800 Unit)] Gabapentin [Neurontin] 300 mg PO BID 12/09/19 06/26/20 Glucos Sul 2Kcl/MSM/Chond/C/Mn 1 tab PO BID 12/09/19 06/26/20 [Glucosamine Chondroitin Cap] Multivit-Min/Iron/Folic/Lutein 1 tab PO DAILY 12/09/19 06/26/20 [Centrum Silver Women Tablet] [place]-3 Fatty Acids/Fish Oil [Fish 1 cap PO DAILY 12/09/19 06/26/20 Oil 1,000 mg Softgel] Vitamin B Complex 1 tab PO DAILY 12/09/19 06/26/20 glipiZIDE/METFORMIN HCL 1 tab PO BID 12/09/19 06/26/20 [glipiZIDE/METFORMIN HCL 2.5-500 mg] Metanx Supplement 2 cap PO BID 06/19/20 06/26/20 Metoprolol Tartrate [Lopressor] 12.5 mg PO BID 06/26/20 06/26/20 Potassium Chloride 10 meq PO DAILY 06/26/20 06/26/20 dexAMETHasone [Hexadrol] See Taper PO DAILY 06/26/20 06/26/20 Previous Rx's Medication Instructions Recorded Atorvastatin [Lipitor] 40 mg PO HS #30 tab 06/23/20 Levofloxacin [Levaquin] 500 mg PO DAILY #7 tab 06/23/20 Tamsulosin [Flomax] 0.4 mg PO PC-BRKFST #30 cap.er.24h 06/23/20 Zinc Sulfate [Orazinc] 220 mg PO DAILY 30 Days #30 cap 06/23/20 lisinopriL [Zestril] 5 mg PO DAILY #30 tab 06/23/20 Allergies Allergy/AdvReac Type Severity Reaction Status Date / Time bee venom protein (honey bee) Allergy Severe Swelling Verified 06/26/20 18:19 ampicillin Allergy Rash/Hives Verified 06/26/20 18:19 Review of Systems ROS Statement: Those systems with pertinent positive or pertinent negative responses have been documented in the HPI. ROS Other: All systems not noted in ROS Statement are negative. Past Medical History Past Medical History: Cancer, Diabetes Mellitus, Hypertension, Pneumonia Additional Past Medical History / Comment(s): Left breast History of Any Multi-Drug Resistant Organisms: None Reported Past Surgical History: Adenoidectomy, Breast Surgery, Hysterectomy, Orthopedic Surgery, Tonsillectomy Additional Past Surgical History / Comment(s): partial hysterectomy. right total hip replacement Past Anesthesia/Blood Transfusion Reactions: No Reported Reaction Past Psychological History: No Psychological Hx Reported Smoking Status: Never smoker Past Alcohol Use History: None Reported Past Drug Use History: None Reported - Past Family History Mother Family Medical History: No Reported History Father Family Medical History: No Reported History Sister(s) Family Medical History: Diabetes Mellitus General Exam General appearance: alert, in no apparent distress Head exam: Present: atraumatic, normocephalic, normal inspection Eye exam: Present: normal appearance, PERRL, EOMI. Absent: scleral icterus, conjunctival injection, periorbital swelling ENT exam: Present: normal exam, mucous membranes moist Neck exam: Present: normal inspection. Absent: tenderness, meningismus, lymphadenopathy Respiratory exam: Present: normal lung sounds bilaterally. Absent: respiratory distress, wheezes, rales, rhonchi, stridor Cardiovascular Exam: Present: regular rate, normal rhythm, normal heart sounds. Absent: systolic murmur, diastolic murmur, rubs, gallop, clicks GI/Abdominal exam: Present: soft, normal bowel sounds. Absent: distended, tenderness, guarding, rebound, rigid Extremities exam: Present: normal inspection, full ROM, normal capillary refill. Absent: tenderness, pedal edema, joint swelling, calf tenderness Back exam: Present: normal inspection Neurological exam: Present: alert, oriented X3, CN II-XII intact Psychiatric exam: Present: normal affect, normal mood Skin exam: Present: warm, dry, intact, normal color. Absent: rash Course Vital Signs 07/02/20 23:23 Temperature 98.1 F Pulse Rate 70 Respiratory 18 Rate Blood Pressure 138/64 O2 Sat by Pulse 96 Oximetry - Reevaluation(s) Reevaluation #1: 07/03/20 03:15 Medical record reviewed including outpatient computed tomography scan Prior inpatient as well as ER visit is reviewed Reevaluation #2: 07/03/20 03:15 Patient informed of results questions have been answered Reevaluation #3: 07/03/20 03:15 Patient is in no distress prefers discharge EKG Findings - EKG Comments: EKG Findings:: EKG shows sinus rhythm rate of 68, IL 136 QRS 90 QTC 450 Medical Decision Making - Medical Decision Making 79 female DF for weakness and shortness of breath no acute cause found here in the ER patient can be discharged home - Lab Data Result diagrams: 07/02/20 23:43 07/02/20 23:43 Lab Results 07/02/20 07/02/20 07/02/20 Range/Units 23:43 23:43 23:43 WBC 12.7 H (3.8-10.6) k/uL RBC 4.36 (3.80-5.40) m/uL Hgb 12.9 (11.4-16.0) gm/dL Hct 38.7 (34.0-46.0) % MCV 88.7 (80.0-100.0) fL MCH 29.7 (25.0-35.0) pg MCHC 33.4 (31.0-37.0) g/dL RDW 14.7 (11.5-15.5) % Plt Count 450 (150-450) k/uL MPV 7.0 Neutrophils % 70 % Lymphocytes % 18 % Monocytes % 6 % Eosinophils % 3 % Basophils % 1 % Neutrophils # 8.9 H (1.3-7.7) k/uL Lymphocytes # 2.3 (1.0-4.8) k/uL Monocytes # 0.8 (0-1.0) k/uL Eosinophils # 0.4 (0-0.7) k/uL Basophils # 0.1 (0-0.2) k/uL PT 10.5 (9.0-12.0) sec INR 1.0 (<1.2) APTT 22.2 (22.0-30.0) sec Sodium 142 (137-145) mmol/L Potassium 4.4 (3.5-5.1) mmol/L Chloride 110 H (98-107) mmol/L Carbon Dioxide 26 (22-30) mmol/L Anion Gap 6 mmol/L BUN 25 H (7-17) mg/dL Creatinine 0.57 (0.52-1.04) mg/dL Est GFR (CKD-EPI)AfAm >90 (>60 ml/min/1.73 sqM) Est GFR (CKD-EPI)NonAf 87 (>60 ml/min/1.73 sqM) Glucose 118 H (74-99) mg/dL Plasma Lactic Acid Julio (0.7-2.0) mmol/L Calcium 9.0 (8.4-10.2) mg/dL Phosphorus 3.7 (2.5-4.5) mg/dL Magnesium 1.8 (1.6-2.3) mg/dL Total Bilirubin 1.0 (0.2-1.3) mg/dL AST 31 (14-36) U/L ALT 38 H (4-34) U/L Alkaline Phosphatase 74 (38-126) U/L Creatine Kinase 28 L (30-135) U/L Troponin I (0.000-0.034) ng/mL Total Protein 5.8 L (6.3-8.2) g/dL Albumin 3.1 L (3.5-5.0) g/dL TSH 1.160 (0.465-4.680) mIU/L Urine Color Urine Appearance (Clear) Urine pH (5.0-8.0) Ur Specific [place] (1.001-1.035) Urine Protein (Negative) Urine Glucose (UA) (Negative) Urine Ketones (Negative) Urine Blood (Negative) Urine Nitrite (Negative) Urine Bilirubin (Negative) Urine Urobilinogen (<2.0) mg/dL Ur Leukocyte Esterase (Negative) 07/02/20 07/02/20 07/03/20 Range/Units 23:43 23:43 02:27 WBC (3.8-10.6) k/uL RBC (3.80-5.40) m/uL Hgb (11.4-16.0) gm/dL Hct (34.0-46.0) % MCV (80.0-100.0) fL MCH (25.0-35.0) pg MCHC (31.0-37.0) g/dL RDW (11.5-15.5) % Plt Count (150-450) k/uL MPV Neutrophils % % Lymphocytes % % Monocytes % % Eosinophils % % Basophils % % Neutrophils # (1.3-7.7) k/uL Lymphocytes # (1.0-4.8) k/uL Monocytes # (0-1.0) k/uL Eosinophils # (0-0.7) k/uL Basophils # (0-0.2) k/uL PT (9.0-12.0) sec INR (<1.2) APTT (22.0-30.0) sec Sodium (137-145) mmol/L Potassium (3.5-5.1) mmol/L Chloride (98-107) mmol/L Carbon Dioxide (22-30) mmol/L Anion Gap mmol/L BUN (7-17) mg/dL Creatinine (0.52-1.04) mg/dL Est GFR (CKD-EPI)AfAm (>60 ml/min/1.73 sqM) Est GFR (CKD-EPI)NonAf (>60 ml/min/1.73 sqM) Glucose (74-99) mg/dL Plasma Lactic Acid Julio 1.8 (0.7-2.0) mmol/L Calcium (8.4-10.2) mg/dL Phosphorus (2.5-4.5) mg/dL Magnesium (1.6-2.3) mg/dL Total Bilirubin (0.2-1.3) mg/dL AST (14-36) U/L ALT (4-34) U/L Alkaline Phosphatase (38-126) U/L Creatine Kinase (30-135) U/L Troponin I 0.017 (0.000-0.034) ng/mL Total Protein (6.3-8.2) g/dL Albumin (3.5-5.0) g/dL TSH (0.465-4.680) mIU/L Urine Color Yellow Urine Appearance Clear (Clear) Urine pH 5.0 (5.0-8.0) Ur Specific [place] 1.026 (1.001-1.035) Urine Protein Negative (Negative) Urine Glucose (UA) Negative (Negative) Urine Ketones Negative (Negative) Urine Blood Negative (Negative) Urine Nitrite Negative (Negative) Urine Bilirubin Negative (Negative) Urine Urobilinogen <2.0 (<2.0) mg/dL Ur Leukocyte Esterase Negative (Negative) Disposition Clinical Impression: Shortness of breath, Weakness Disposition: HOME SELF-CARE Condition: Good Instructions (If sedation given, give patient instructions): Weakness (ED) Is patient prescribed a controlled substance at d/c from ED?: No Referrals: Marcelino Grande MD [Primary Care Provider] - 1-2 days
--- NOTE | 2020-07-02 23:56 | XR ---
EXAMINATION TYPE: XR chest 1V DATE OF EXAM: 07/02/2020 COMPARISON: 06/26/2020 HISTORY: Short of breath. Weakness TECHNIQUE: FINDINGS: Heart is enlarged. There is some mild infiltrate and atelectasis at the lung bases. There i s some coarsening of interstitial markings. There is no gross heart failure. There are chest leads. T horacic aorta is atheromatous. IMPRESSION: Mild basilar pulmonary infiltrates and atelectasis increased compared to recent exam. No heart failure seen. There is probably some pulmonary fibrosis.
[2020-07-03 00:03] LABS: Basophils # (A) 0.1 k/uL (0-0.2); Basophils % (A) 1 %; Eosinophils # (A) 0.4 k/uL (0-0.7); Eosinophils % (A) 3 %; HCT 38.7 % (34.0-46.0); HGB 12.9 gm/dL (11.4-16.0); Lymphocytes # (A) 2.3 k/uL (1.0-4.8); Lymphocytes % (A) 18 %; MCH 29.7 pg (25.0-35.0); MCHC 33.4 g/dL (31.0-37.0); MCV 88.7 fL (80.0-100.0); Monocytes # (A) 0.8 k/uL (0-1.0); Monocytes % (A) 6 %; Neutrophils # (A) 8.9 k/uL (1.3-7.7); Neutrophils % (A) 70 %; Platelet Count 450 k/uL (150-450); RBC 4.36 m/uL (3.80-5.40); RDW 14.7 % (11.5-15.5); WBC 12.7 k/uL (3.8-10.6)
[2020-07-03 00:27] LABS: ALT 38 U/L (4-34); AST 31 U/L (14-36); African American GFR (CKD) >90 (>60 ml/min/1.73 sqM); Albumin 3.1 g/dL (3.5-5.0); Alkaline Phosphatase 74 U/L (38-126); Anion Gap 6 mmol/L; Blood Urea Nitrogen 25 mg/dL (7-17); Carbon Dioxide 26 mmol/L (22-30); Chloride 110 mmol/L (98-107); Creatine Kinase 28 U/L (30-135); Glucose 118 mg/dL (74-99); Magnesium 1.8 mg/dL (1.6-2.3); Non-African American GFR(CKD) 87 (>60 ml/min/1.73 sqM); Phosphorus 3.7 mg/dL (2.5-4.5); Potassium 4.4 mmol/L (3.5-5.1); Sodium 142 mmol/L (137-145); Total Protein 5.8 g/dL (6.3-8.2)
[2020-07-03 00:43] LABS: Partial Thromboplastin Time 22.2 sec (22.0-30.0); Prothrombin Time 10.5 sec (9.0-12.0)
[2020-07-03 03:04] LABS: Appearance,Urine Clear (Clear); Bilirubin,Urine Negative (Negative); Blood,Urine Negative (Negative); Color,Urine Yellow; Glucose,Urine (UA) Negative (Negative); Ketones,Urine Negative (Negative); Leukocyte Esterase,Urine Negative (Negative); Nitrite,Urine Negative (Negative); Protein,Urine Negative (Negative); Specific Gravity,Urine 1.026 (1.001-1.035); Urobilinogen,Urine <2.0 mg/dL (<2.0)
[2020-07-03 03:57] VITALS: BP 134/78; PULSE 68; RESP 17
== END 2020-07-03 03:57 | disposition home or self-care (01) ==
LOC: EC 23:17
DX: R53.1 Weakness (principal); R06.02 Shortness of breath; E11.9 Type 2 diabetes mellitus without complications; I10 Essential (primary) hypertension; Z79.899 Other long term (current) drug therapy; Z79.84 Long term (current) use of oral hypoglycemic drugs; Z88.0 Allergy status to penicillin; Z91.030 Bee allergy status; Z90.710 Acquired absence of both cervix and uterus; Z96.641 Presence of right artificial hip joint; Z85.3 Personal history of malignant neoplasm of breast; Z11.59 Encounter for screening for other viral diseases
CPT/HCPCS: 36415; 71045; 80053; 81003; 82550; 83605; 83735; 84100; 84443; 84484; 85025; 85610; 85730; 93005; 96360; 96361; 99285

== ENCOUNTER 2020-07-10 04:43 | Emergency (ER) | payer MEDICARE, OTHER ==
--- NOTE | 2020-07-10 05:10 | ED ---
SOB HPI - General Source: patient, EMS Mode of arrival: EMS Limitations: no limitations - History of Present Illness MD Complaint: shortness of breath Onset/Timin -: days(s) Severity: mild Consistency: constant Improves With: nothing Worsens With: nothing Treatments Prior to Arrival: none - Related Data Home Oxygen Therapy: No <Shakeel Cummins - Last Filed: 07/10/20 07:09> <Fco Beltran - Last Filed: 07/10/20 08:20> - General Chief Complaint: Shortness of Breath Stated Complaint: Shortness of Breath Time Seen by Provider: 07/10/20 05:04 - History of Present Illness Initial Comments: This patient is an 79-year-old woman who comes from the [facility] [place] [facility], where she states that friends were telling her that she appeared short of breath. She states that her breathing does not feel a lot worse than it has been over the past approximately one month since she was diagnosed with coronavirus infection (06/12). Patient states she is also having a little bit of a cough, also not much different than it had been. No leg pain or swelling. No change in urination or bowel movements. No chest pain. (Shakeel Cummins) - Related Data Home Medications Medication Instructions Recorded Confirmed Ascorbic Acid [Vitamin C] 500 mg PO DAILY 12/09/19 07/10/20 Calcium Carbonate/Vitamin D3 1 tab PO BID 12/09/19 07/10/20 [Calcium 600-D3 20Mcg(800 Unit)] Gabapentin [Neurontin] 300 mg PO BID 12/09/19 07/10/20 Glucos Sul 2Kcl/MSM/Chond/C/Mn 1 tab PO BID 12/09/19 07/10/20 [Glucosamine Chondroitin Cap] Multivit-Min/Iron/Folic/Lutein 1 tab PO DAILY 12/09/19 07/10/20 [Centrum Silver Women Tablet] [place]-3 Fatty Acids/Fish Oil [Fish 1 cap PO DAILY 12/09/19 07/10/20 Oil 1,000 mg Softgel] Vitamin B Complex 1 tab PO DAILY 12/09/19 07/10/20 glipiZIDE/METFORMIN HCL 1 tab PO BID 12/09/19 07/10/20 [glipiZIDE/METFORMIN HCL 2.5-500 mg] Metanx Supplement 2 cap PO BID 06/19/20 07/10/20 Metoprolol Tartrate [Lopressor] 12.5 mg PO BID 06/26/20 07/10/20 Potassium Chloride 10 meq PO DAILY 06/26/20 07/10/20 Previous Rx's Medication Instructions Recorded Atorvastatin [Lipitor] 40 mg PO HS #30 tab 06/23/20 Tamsulosin [Flomax] 0.4 mg PO PC-BRKFST #30 cap.er.24h 06/23/20 Zinc Sulfate [Orazinc] 220 mg PO DAILY 30 Days #30 cap 06/23/20 lisinopriL [Zestril] 5 mg PO DAILY #30 tab 06/23/20 Azithromycin [Zithromax Z-pack (6 250 mg PO DIRECTED 5 Days #6 tab 07/10/20 tabs)] Allergies Allergy/AdvReac Type Severity Reaction Status Date / Time bee venom protein (honey bee) Allergy Severe Swelling Verified 07/10/20 08:06 ampicillin Allergy Rash/Hives Verified 07/10/20 08:06 Review of Systems ROS Other: All systems not noted in ROS Statement are negative. Constitutional: Denies: fever, chills Respiratory: Reports: cough, dyspnea. Denies: wheezes, hemoptysis Cardiovascular: Denies: chest pain, palpitations, orthopnea, edema, syncope Gastrointestinal: Denies: abdominal pain, nausea, vomiting, diarrhea, constipation, melena, hematochezia Genitourinary: Denies: dysuria, hematuria Musculoskeletal: Denies: back pain Skin: Denies: rash Neurological: Denies: headache, weakness, numbness <Shakeel Cummins - Last Filed: 07/10/20 07:09> ROS Other: All systems not noted in ROS Statement are negative. <Fco Beltran - Last Filed: 07/10/20 08:20> ROS Statement: Those systems with pertinent positive or pertinent negative responses have been documented in the HPI. Past Medical History Past Medical History: Cancer, Diabetes Mellitus, Hypertension, Pneumonia Additional Past Medical History / Comment(s): Left breast History of Any Multi-Drug Resistant Organisms: None Reported Past Surgical History: Adenoidectomy, Breast Surgery, Hysterectomy, Orthopedic Surgery, Tonsillectomy Additional Past Surgical History / Comment(s): partial hysterectomy. right total hip replacement Past Anesthesia/Blood Transfusion Reactions: No Reported Reaction Past Psychological History: No Psychological Hx Reported Smoking Status: Never smoker Past Alcohol Use History: None Reported Past Drug Use History: None Reported - Past Family History Mother Family Medical History: No Reported History Father Family Medical History: No Reported History Sister(s) Family Medical History: Diabetes Mellitus <Shakeel Cummins - Last Filed: 07/10/20 07:09> General Exam Limitations: no limitations General appearance: alert, in no apparent distress Head exam: Present: atraumatic, normocephalic Eye exam: Present: normal appearance. Absent: scleral icterus, conjunctival injection ENT exam: Present: normal oropharynx Neck exam: Present: normal inspection Respiratory exam: Present: respiratory distress (Mild tachypnea at my exam, rate is 24), rales (Bilateral lungs). Absent: wheezes, rhonchi, stridor, accessory muscle use, decreased breath sounds, prolonged expiratory Cardiovascular Exam: Present: regular rate, normal rhythm, normal heart sounds. Absent: systolic murmur, diastolic murmur, rubs, gallop GI/Abdominal exam: Present: soft. Absent: distended, tenderness, guarding, rebound, rigid, mass Extremities exam: Present: normal inspection, normal capillary refill. Absent: pedal edema, calf tenderness Back exam: Present: normal inspection. Absent: CVA tenderness (R), CVA tenderness (L) Neurological exam: Present: alert Skin exam: Present: warm, dry, intact, normal color. Absent: rash <Shakeel Cummins - Last Filed: 07/10/20 07:09> Course Vital Signs 07/10/20 07/10/20 07/10/20 04:45 05:35 06:52 Temperature 98.5 F Pulse Rate 89 90 88 Respiratory 35 H 25 H 20 Rate Blood Pressure 147/119 137/81 123/57 O2 Sat by Pulse 95 96 97 Oximetry 07/10/20 07:55 Temperature 98.6 F Pulse Rate 92 Respiratory 22 Rate Blood Pressure 145/71 O2 Sat by Pulse 97 Oximetry Medical Decision Making - Lab Data Result diagrams: 07/10/20 05:30 07/10/20 05:30 - EKG Data -: EKG Interpreted by Ct EKG shows normal: sinus rhythm (With PAC, rate 89 bpm), axis (Normal), intervals (Normal), QRS complexes (Possible LVH), ST-T waves (Normal) Rate: normal Interpretation: LVH (By voltage criteria) <Shakeel Cummins - Last Filed: 07/10/20 07:09> - Lab Data Result diagrams: 07/10/20 05:30 07/10/20 05:30 - Radiology Data Radiology results: report reviewed (Imaging reviewed no definite acute findings no evidence of PE there is however some evidence of possible atypical pneumonia), image reviewed <Fco Beltran - Last Filed: 07/10/20 08:20> - Medical Decision Making I did discuss findings with the patient and gave her options for admission versus discharge. The patient states she does not want stay in hospital. The patient states she's been having occasional cough but denies any fevers chills nausea vomiting sweats at this time denies any shortness of breath he'll be placed on Zithromax. (Fco Beltran) - Lab Data Lab Results 07/10/20 07/10/20 07/10/20 Range/Units 05:30 05:30 05:30 WBC 7.2 (3.8-10.6) k/uL RBC 3.74 L (3.80-5.40) m/uL Hgb 11.1 L (11.4-16.0) gm/dL Hct 32.8 L (34.0-46.0) % MCV 87.6 (80.0-100.0) fL MCH 29.5 (25.0-35.0) pg MCHC 33.7 (31.0-37.0) g/dL RDW 14.5 (11.5-15.5) % Plt Count 256 (150-450) k/uL MPV 7.5 Neutrophils % 57 % Lymphocytes % 22 % Monocytes % 10 % Eosinophils % 7 % Basophils % 2 % Neutrophils # 4.1 (1.3-7.7) k/uL Lymphocytes # 1.6 (1.0-4.8) k/uL Monocytes # 0.7 (0-1.0) k/uL Eosinophils # 0.5 (0-0.7) k/uL Basophils # 0.1 (0-0.2) k/uL PT 10.2 (9.0-12.0) sec INR 1.0 (<1.2) APTT 23.0 (22.0-30.0) sec D-Dimer 1.37 H (<0.60) mg/L FEU Sodium (137-145) mmol/L Potassium (3.5-5.1) mmol/L Chloride (98-107) mmol/L Carbon Dioxide (22-30) mmol/L Anion Gap mmol/L BUN (7-17) mg/dL Creatinine (0.52-1.04) mg/dL Est GFR (CKD-EPI)AfAm (>60 ml/min/1.73 sqM) Est GFR (CKD-EPI)NonAf (>60 ml/min/1.73 sqM) Glucose (74-99) mg/dL Plasma Lactic Acid Julio (0.7-2.0) mmol/L Calcium (8.4-10.2) mg/dL Total Bilirubin (0.2-1.3) mg/dL AST (14-36) U/L ALT (4-34) U/L Alkaline Phosphatase (38-126) U/L Troponin I (0.000-0.034) ng/mL NT-Pro-B Natriuret Pep pg/mL Total Protein (6.3-8.2) g/dL Albumin (3.5-5.0) g/dL Urine Color Yellow Urine Appearance Clear (Clear) Urine pH 5.0 (5.0-8.0) Ur Specific [place] 1.050 H (1.001-1.035) Urine Protein Negative (Negative) Urine Glucose (UA) Negative (Negative) Urine Ketones Negative (Negative) Urine Blood Negative (Negative) Urine Nitrite Negative (Negative) Urine Bilirubin Negative (Negative) Urine Urobilinogen <2.0 (<2.0) mg/dL Ur Leukocyte Esterase Moderate H (Negative) Urine RBC 3 (0-5) /hpf Urine WBC 12 H (0-5) /hpf 07/10/20 07/10/20 07/10/20 Range/Units 05:30 05:30 05:30 WBC (3.8-10.6) k/uL RBC (3.80-5.40) m/uL Hgb (11.4-16.0) gm/dL Hct (34.0-46.0) % MCV (80.0-100.0) fL MCH (25.0-35.0) pg MCHC (31.0-37.0) g/dL RDW (11.5-15.5) % Plt Count (150-450) k/uL MPV Neutrophils % % Lymphocytes % % Monocytes % % Eosinophils % % Basophils % % Neutrophils # (1.3-7.7) k/uL Lymphocytes # (1.0-4.8) k/uL Monocytes # (0-1.0) k/uL Eosinophils # (0-0.7) k/uL Basophils # (0-0.2) k/uL PT (9.0-12.0) sec INR (<1.2) APTT (22.0-30.0) sec D-Dimer (<0.60) mg/L FEU Sodium 139 (137-145) mmol/L Potassium 4.0 (3.5-5.1) mmol/L Chloride 106 (98-107) mmol/L Carbon Dioxide 28 (22-30) mmol/L Anion Gap 5 mmol/L BUN 11 (7-17) mg/dL Creatinine 0.63 (0.52-1.04) mg/dL Est GFR (CKD-EPI)AfAm >90 (>60 ml/min/1.73 sqM) Est GFR (CKD-EPI)NonAf 84 (>60 ml/min/1.73 sqM) Glucose 146 H (74-99) mg/dL Plasma Lactic Acid Julio 1.4 (0.7-2.0) mmol/L Calcium 8.5 (8.4-10.2) mg/dL Total Bilirubin 1.4 H (0.2-1.3) mg/dL AST 35 (14-36) U/L ALT 28 (4-34) U/L Alkaline Phosphatase 65 (38-126) U/L Troponin I <0.012 (0.000-0.034) ng/mL NT-Pro-B Natriuret Pep pg/mL Total Protein 5.8 L (6.3-8.2) g/dL Albumin 3.0 L (3.5-5.0) g/dL Urine Color Urine Appearance (Clear) Urine pH (5.0-8.0) Ur Specific [place] (1.001-1.035) Urine Protein (Negative) Urine Glucose (UA) (Negative) Urine Ketones (Negative) Urine Blood (Negative) Urine Nitrite (Negative) Urine Bilirubin (Negative) Urine Urobilinogen (<2.0) mg/dL Ur Leukocyte Esterase (Negative) Urine RBC (0-5) /hpf Urine WBC (0-5) /hpf 07/10/20 Range/Units 05:30 WBC (3.8-10.6) k/uL RBC (3.80-5.40) m/uL Hgb (11.4-16.0) gm/dL Hct (34.0-46.0) % MCV (80.0-100.0) fL MCH (25.0-35.0) pg MCHC (31.0-37.0) g/dL RDW (11.5-15.5) % Plt Count (150-450) k/uL MPV Neutrophils % % Lymphocytes % % Monocytes % % Eosinophils % % Basophils % % Neutrophils # (1.3-7.7) k/uL Lymphocytes # (1.0-4.8) k/uL Monocytes # (0-1.0) k/uL Eosinophils # (0-0.7) k/uL Basophils # (0-0.2) k/uL PT (9.0-12.0) sec INR (<1.2) APTT (22.0-30.0) sec D-Dimer (<0.60) mg/L FEU Sodium (137-145) mmol/L Potassium (3.5-5.1) mmol/L Chloride (98-107) mmol/L Carbon Dioxide (22-30) mmol/L Anion Gap mmol/L BUN (7-17) mg/dL Creatinine (0.52-1.04) mg/dL Est GFR (CKD-EPI)AfAm (>60 ml/min/1.73 sqM) Est GFR (CKD-EPI)NonAf (>60 ml/min/1.73 sqM) Glucose (74-99) mg/dL Plasma Lactic Acid Julio (0.7-2.0) mmol/L Calcium (8.4-10.2) mg/dL Total Bilirubin (0.2-1.3) mg/dL AST (14-36) U/L ALT (4-34) U/L Alkaline Phosphatase (38-126) U/L Troponin I (0.000-0.034) ng/mL NT-Pro-B Natriuret Pep 245 pg/mL Total Protein (6.3-8.2) g/dL Albumin (3.5-5.0) g/dL Urine Color Urine Appearance (Clear) Urine pH (5.0-8.0) Ur Specific [place] (1.001-1.035) Urine Protein (Negative) Urine Glucose (UA) (Negative) Urine Ketones (Negative) Urine Blood (Negative) Urine Nitrite (Negative) Urine Bilirubin (Negative) Urine Urobilinogen (<2.0) mg/dL Ur Leukocyte Esterase (Negative) Urine RBC (0-5) /hpf Urine WBC (0-5) /hpf Disposition <Shakeel Cummins - Last Filed: 07/10/20 07:09> Is patient prescribed a controlled substance at d/c from ED?: No <Fco Beltran - Last Filed: 07/10/20 08:20> Clinical Impression: Pneumonitis Disposition: HOME SELF-CARE Condition: Good Instructions (If sedation given, give patient instructions): Bacterial Pneumonia (ED) Additional Instructions: Prescription sent to the preferred pharmacy Prescriptions: Azithromycin [Zithromax Z-pack (6 tabs)] 250 mg PO DIRECTED 5 Days #6 tab Referrals: Marcelino Grande MD [Primary Care Provider] - 1-2 days
[2020-07-10 05:41] LABS: Basophils # (A) 0.1 k/uL (0-0.2); Basophils % (A) 2 %; Eosinophils # (A) 0.5 k/uL (0-0.7); Eosinophils % (A) 7 %; HCT 32.8 % (34.0-46.0); HGB 11.1 gm/dL (11.4-16.0); Lymphocytes # (A) 1.6 k/uL (1.0-4.8); Lymphocytes % (A) 22 %; MCH 29.5 pg (25.0-35.0); MCHC 33.7 g/dL (31.0-37.0); MCV 87.6 fL (80.0-100.0); Mean Platelet Volume 7.5; Monocytes # (A) 0.7 k/uL (0-1.0); Monocytes % (A) 10 %; Neutrophils # (A) 4.1 k/uL (1.3-7.7); Neutrophils % (A) 57 %; Platelet Count 256 k/uL (150-450); RBC 3.74 m/uL (3.80-5.40); RDW 14.5 % (11.5-15.5); WBC 7.2 k/uL (3.8-10.6)
[2020-07-10 05:51] LABS: ALT 28 U/L (4-34); AST 35 U/L (14-36); African American GFR (CKD) >90 (>60 ml/min/1.73 sqM); Alkaline Phosphatase 65 U/L (38-126); Anion Gap 5 mmol/L; Blood Urea Nitrogen 11 mg/dL (7-17); Calcium 8.5 mg/dL (8.4-10.2); Carbon Dioxide 28 mmol/L (22-30); Chloride 106 mmol/L (98-107); Glucose 146 mg/dL (74-99); Non-African American GFR(CKD) 84 (>60 ml/min/1.73 sqM); Sodium 139 mmol/L (137-145); Total Bilirubin 1.4 mg/dL (0.2-1.3); Total Protein 5.8 g/dL (6.3-8.2)
--- NOTE | 2020-07-10 06:04 | XR ---
EXAM: XR Chest, 2 Views CLINICAL HISTORY: ITS.REASON XR Reason: difficulty breathing TECHNIQUE: Frontal and lateral views of the chest. COMPARISON: 06/26/2020. FINDINGS: Lungs: Mild interstitial prominence which predominate at the periphery and at the lung bases appeared Pleural space: No pleural effusions. No pneumothorax. Heart: There is cardiomegaly. There is a retrocardiac density which on the lateral view appears to be located posteriorly at the lung base of uncertain etiology. Mediastinum: Unremarkable. Bones/joints: Osteopenia. 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 IMPRESSION: 1. Cardiomegaly. 2. There is a posterior density at the left lung base of uncertain etiology. Similar finding was noted on the previous study of 07/02/2020. CT imaging of the chest is suggested for follow-up, as deemed clinically necessary.
[2020-07-10 06:08] LABS: Prothrombin Time 10.2 sec (9.0-12.0)
[2020-07-10 06:12] LABS: D-Dimer 1.37 mg/L FEU (<0.60)
--- NOTE | 2020-07-10 07:27 | CT ---
EXAM: CT Angiography Chest With Intravenous Contrast CLINICAL HISTORY: ITS.REASON CT Reason: possible PE TECHNIQUE: Axial computed tomographic angiography images of the chest with intravenous contrast. CTDI is 9.9 mGy and DLP is 308.3 mGy-cm. This CT exam was performed using one or more of the following dose reduction techniques: automated exposure control, adjustment of the mA and/or kV according to patient size, and/or use of iterative reconstruction technique. MIP reconstructed images were created and reviewed. COMPARISON: 06/19/2020. FINDINGS: Pulmonary arteries: No central pulmonary embolism is noted. No peripheral pulmonary embolism is noted. Aorta: Atherosclerotic disease of the thoracic aorta. No thoracic aortic aneurysm. Lungs: Patchy airspace disease which predominate at the lung bases. Atypical pneumonia cannot be excluded and clinical correlation is advised. More confluent consolidation at the right lower lobe is noted having slightly worsened since the earlier study of 06/11/2020. Thyroid gland is unremarkable. Pleural space: Unremarkable. No significant effusion. No pneumothorax. Heart: Unremarkable. No cardiomegaly. No significant pericardial effusion. No evidence of RV dysfunction. Bones/joints: No acute fracture. No dislocation. Soft tissues: Unremarkable. Lymph nodes: Unremarkable. No enlarged lymph nodes. Liver: Diffuse fatty infiltration of the liver. IMPRESSION: 1. No central or peripheral pulmonary emboli. 2. Atypical pneumonia cannot be excluded.
[2020-07-10 07:56] VITALS: BP 145/71; PULSE 92; RESP 22; TEMP 98.6
[2020-07-10 08:05] LABS: Appearance,Urine Clear (Clear); Bilirubin,Urine Negative (Negative); Blood,Urine Negative (Negative); Color,Urine Yellow; Glucose,Urine (UA) Negative (Negative); Ketones,Urine Negative (Negative); Leukocyte Esterase,Urine Moderate (Negative); Nitrite,Urine Negative (Negative); Protein,Urine Negative (Negative); RBC,Urine 3 /hpf (0-5); Urobilinogen,Urine <2.0 mg/dL (<2.0); WBC,Urine 12 /hpf (0-5)
[2020-07-10] MEDS ORDERED: AZITHROMYCIN 500 MG TAB PO STA (08:16)
== END 2020-07-10 08:48 | disposition home or self-care (01) ==
LOC: EC 04:43
DX: J18.9 Pneumonia, unspecified organism (principal); E11.9 Type 2 diabetes mellitus without complications; I10 Essential (primary) hypertension; Z79.84 Long term (current) use of oral hypoglycemic drugs; Z79.899 Other long term (current) drug therapy; Z96.641 Presence of right artificial hip joint; Z98.890 Other specified postprocedural states; Z85.3 Personal history of malignant neoplasm of breast; Z90.712 Acquired absence of cervix with remaining uterus; Z88.0 Allergy status to penicillin; Z91.030 Bee allergy status
CPT/HCPCS: 36415; 93005; 85379; 83880; 80053; 83605; 84484; 85025; 85610; 85730; 81001; 71046; 71275; 99285; Q9967

== ENCOUNTER 2020-09-19 02:11 | Observation (INO) | payer MEDICARE, OTHER ==
[2020-09-19] MEDS ORDERED: FUROSEMIDE 10 MG/ML 10 ML VIAL IV STA (02:46)
--- NOTE | 2020-09-19 02:49 | ED ---
Extremity Problem HPI - General Chief complaint: Extremity Problem,Nontraumatic Stated complaint: leg swelling Time Seen by Provider: 09/19/20 02:13 Source: patient, EMS, RN notes reviewed, old records reviewed Mode of arrival: EMS Limitations: no limitations - History of Present Illness Initial comments: This is an 80-year-old female DF for evaluation patient Dese for evaluation regards to left leg pain and swelling. Patient also has cough or congestion about left leg pain denying fevers not currently on antibiotics states she has history of cellulitis and this feels the same MD Complaint: extremity pain, extremity swelling -: hour(s) Location: left, lower extremity History of Same: Yes Radiation: proximal Severity scale (1-10): 7 Quality: burning Consistency: constant Improves with: nothing Worsens with: nothing Associated Symptoms: denies other symptoms - Related Data Home Medications Medication Instructions Recorded Confirmed Glucos Sul 2Kcl/MSM/Chond/C/Mn 1 tab PO BID 12/09/19 09/19/20 [Glucosamine Chondroitin Cap] Multivit-Min/Iron/Folic/Lutein 1 tab PO DAILY 12/09/19 09/19/20 [Centrum Silver Women Tablet] Tiller-3 Fatty Acids/Fish Oil [Fish 1 cap PO DAILY 12/09/19 09/19/20 Oil 1,000 mg Softgel] Vitamin B Complex 1 tab PO DAILY 12/09/19 09/19/20 glipiZIDE/METFORMIN HCL 1 tab PO BID 12/09/19 09/19/20 [glipiZIDE/METFORMIN HCL 2.5-500 mg] Metanx Supplement 2 cap PO BID 06/19/20 09/19/20 Metoprolol Tartrate [Lopressor] 25 mg PO DIRECTED 06/26/20 09/19/20 Potassium Chloride 10 meq PO DAILY 06/26/20 09/19/20 Ascorbic Acid [Vitamin C] 500 mg PO DAILY 09/19/20 09/19/20 Cholecalciferol [Vitamin D3 (25 25 mcg PO DAILY 09/19/20 09/19/20 Mcg = 1000 Iu)] Furosemide [Lasix] 20 mg PO DIRECTED 09/19/20 09/19/20 Losartan [Cozaar] 50 mg PO DAILY 09/19/20 09/19/20 Nebivolol [Bystolic] 5 mg PO DAILY 09/19/20 09/19/20 Tamsulosin [Flomax] 0.4 mg PO DAILY 09/19/20 09/19/20 Zinc 50 mg PO DAILY 09/19/20 09/19/20 Previous Rx's Medication Instructions Recorded Atorvastatin [Lipitor] 40 mg PO HS #30 tab 06/23/20 Gabapentin [Neurontin] 300 mg PO BID #6 cap 09/21/20 traMADol HCl [Ultram] 100 mg PO QID PRN tab 09/21/20 traMADol HCl [Ultram] 100 mg PO QID PRN 3 Days #24 tab 09/21/20 Allergies Allergy/AdvReac Type Severity Reaction Status Date / Time bee venom protein (honey bee) Allergy Severe Swelling Verified 09/19/20 08:43 ampicillin Allergy Rash/Hives Verified 09/19/20 08:43 Review of Systems ROS Statement: Those systems with pertinent positive or pertinent negative responses have been documented in the HPI. ROS Other: All systems not noted in ROS Statement are negative. Past Medical History Past Medical History: Cancer, Diabetes Mellitus, Hypertension, Pneumonia Additional Past Medical History / Comment(s): Left breast History of Any Multi-Drug Resistant Organisms: None Reported Past Surgical History: Adenoidectomy, Breast Surgery, Hysterectomy, Orthopedic Surgery, Tonsillectomy Additional Past Surgical History / Comment(s): partial hysterectomy. right total hip replacement Past Anesthesia/Blood Transfusion Reactions: No Reported Reaction Past Psychological History: No Psychological Hx Reported Smoking Status: Never smoker Past Alcohol Use History: Rare Past Drug Use History: None Reported - Past Family History Mother Family Medical History: No Reported History Father Family Medical History: No Reported History Sister(s) Family Medical History: Diabetes Mellitus General Exam Limitations: no limitations General appearance: alert, in no apparent distress Head exam: Present: atraumatic, normocephalic, normal inspection Eye exam: Present: normal appearance, PERRL, EOMI. Absent: scleral icterus, conjunctival injection, periorbital swelling ENT exam: Present: normal exam, mucous membranes moist Neck exam: Present: normal inspection. Absent: tenderness, meningismus, lymphadenopathy Respiratory exam: Present: normal lung sounds bilaterally. Absent: respiratory distress, wheezes, rales, rhonchi, stridor Cardiovascular Exam: Present: regular rate, normal rhythm, normal heart sounds. Absent: systolic murmur, diastolic murmur, rubs, gallop, clicks GI/Abdominal exam: Present: soft, normal bowel sounds. Absent: distended, tenderness, guarding, rebound, rigid Extremities exam: Present: normal inspection, full ROM, normal capillary refill, other (Significant cellulitis of right lower extremity edema swelling and erythema). Absent: tenderness, pedal edema, joint swelling, calf tenderness Back exam: Present: normal inspection Neurological exam: Present: alert, oriented X3, CN II-XII intact Psychiatric exam: Present: normal affect, normal mood Skin exam: Present: warm, dry, intact, normal color. Absent: rash Course Vital Signs 09/19/20 02:12 Temperature 98.7 F Pulse Rate 72 Respiratory 18 Rate Blood Pressure 163/74 O2 Sat by Pulse 95 Oximetry - Reevaluation(s) Reevaluation #1: Medical record is reviewed Patient symptoms are improved here in the ER Patient informed results and questions have been answered Patient family feel comfortable for discharge Medical Decision Making - Medical Decision Making 80 female DF for evaluation patient for evaluation regards to leg pain significant left lower Shorty cellulitis patient be admitted for treatment of left leg cellulitis - Lab Data Result diagrams: 09/21/20 04:35 09/21/20 04:35 Lab Results 09/19/20 09/19/20 09/19/20 Range/Units 03:00 03:00 03:00 WBC 8.1 (3.8-10.6) k/uL RBC 4.34 (3.80-5.40) m/uL Hgb 12.4 (11.4-16.0) gm/dL Hct 37.9 (34.0-46.0) % MCV 87.3 (80.0-100.0) fL MCH 28.6 (25.0-35.0) pg MCHC 32.8 (31.0-37.0) g/dL RDW 14.8 (11.5-15.5) % Plt Count 322 (150-450) k/uL MPV 7.3 Neutrophils % 56 % Lymphocytes % 27 % Monocytes % 9 % Eosinophils % 6 % Basophils % 1 % Neutrophils # 4.5 (1.3-7.7) k/uL Lymphocytes # 2.2 (1.0-4.8) k/uL Monocytes # 0.7 (0-1.0) k/uL Eosinophils # 0.5 (0-0.7) k/uL Basophils # 0.1 (0-0.2) k/uL PT 10.7 (9.0-12.0) sec INR 1.0 (<1.2) APTT 25.8 (22.0-30.0) sec D-Dimer 1.01 H (<0.60) mg/L FEU Sodium 141 (137-145) mmol/L Potassium 3.9 (3.5-5.1) mmol/L Chloride 106 (98-107) mmol/L Carbon Dioxide 26 (22-30) mmol/L Anion Gap 9 mmol/L BUN 16 (7-17) mg/dL Creatinine 0.60 (0.52-1.04) mg/dL Est GFR (CKD-EPI)AfAm >90 (>60 ml/min/1.73 sqM) Est GFR (CKD-EPI)NonAf 86 (>60 ml/min/1.73 sqM) Glucose 110 H (74-99) mg/dL Calcium 9.4 (8.4-10.2) mg/dL Phosphorus 3.9 (2.5-4.5) mg/dL Magnesium 1.8 (1.6-2.3) mg/dL Total Bilirubin 1.4 H (0.2-1.3) mg/dL AST 35 (14-36) U/L ALT 24 (4-34) U/L Alkaline Phosphatase 82 (38-126) U/L Creatine Kinase 63 (30-135) U/L Troponin I (0.000-0.034) ng/mL NT-Pro-B Natriuret Pep pg/mL Total Protein 6.7 (6.3-8.2) g/dL Albumin 3.9 (3.5-5.0) g/dL Coronavirus (PCR) (Not Detectd) 09/19/20 09/19/20 09/19/20 Range/Units 03:00 03:00 03:50 WBC (3.8-10.6) k/uL RBC (3.80-5.40) m/uL Hgb (11.4-16.0) gm/dL Hct (34.0-46.0) % MCV (80.0-100.0) fL MCH (25.0-35.0) pg MCHC (31.0-37.0) g/dL RDW (11.5-15.5) % Plt Count (150-450) k/uL MPV Neutrophils % % Lymphocytes % % Monocytes % % Eosinophils % % Basophils % % Neutrophils # (1.3-7.7) k/uL Lymphocytes # (1.0-4.8) k/uL Monocytes # (0-1.0) k/uL Eosinophils # (0-0.7) k/uL Basophils # (0-0.2) k/uL PT (9.0-12.0) sec INR (<1.2) APTT (22.0-30.0) sec D-Dimer (<0.60) mg/L FEU Sodium (137-145) mmol/L Potassium (3.5-5.1) mmol/L Chloride (98-107) mmol/L Carbon Dioxide (22-30) mmol/L Anion Gap mmol/L BUN (7-17) mg/dL Creatinine (0.52-1.04) mg/dL Est GFR (CKD-EPI)AfAm (>60 ml/min/1.73 sqM) Est GFR (CKD-EPI)NonAf (>60 ml/min/1.73 sqM) Glucose (74-99) mg/dL Calcium (8.4-10.2) mg/dL Phosphorus (2.5-4.5) mg/dL Magnesium (1.6-2.3) mg/dL Total Bilirubin (0.2-1.3) mg/dL AST (14-36) U/L ALT (4-34) U/L Alkaline Phosphatase (38-126) U/L Creatine Kinase (30-135) U/L Troponin I <0.012 (0.000-0.034) ng/mL NT-Pro-B Natriuret Pep 308 pg/mL Total Protein (6.3-8.2) g/dL Albumin (3.5-5.0) g/dL Coronavirus (PCR) Detected A (Not Detectd) - EKG Data -: EKG Interpreted by Me (EKG shows sinus a 69 SC 172 QRS 88 QTc 475) Disposition Clinical Impression: Left leg cellulitis, COPD with acute exacerbation, Hypertensive urgency Narrative: ro DVT Disposition: ADMITTED IP TO THIS HOSP Condition: Good Is patient prescribed a controlled substance at d/c from ED?: No
[2020-09-19 03:14] LABS: Basophils # (A) 0.1 k/uL (0-0.2); Basophils % (A) 1 %; Eosinophils # (A) 0.5 k/uL (0-0.7); Eosinophils % (A) 6 %; HCT 37.9 % (34.0-46.0); HGB 12.4 gm/dL (11.4-16.0); Lymphocytes # (A) 2.2 k/uL (1.0-4.8); Lymphocytes % (A) 27 %; MCH 28.6 pg (25.0-35.0); MCHC 32.8 g/dL (31.0-37.0); MCV 87.3 fL (80.0-100.0); Mean Platelet Volume 7.3; Monocytes # (A) 0.7 k/uL (0-1.0); Monocytes % (A) 9 %; Neutrophils # (A) 4.5 k/uL (1.3-7.7); Neutrophils % (A) 56 %; Platelet Count 322 k/uL (150-450); RBC 4.34 m/uL (3.80-5.40); RDW 14.8 % (11.5-15.5); WBC 8.1 k/uL (3.8-10.6)
[2020-09-19 03:22] LABS: ALT 24 U/L (4-34); AST 35 U/L (14-36); African American GFR (CKD) >90 (>60 ml/min/1.73 sqM); Albumin 3.9 g/dL (3.5-5.0); Alkaline Phosphatase 82 U/L (38-126); Anion Gap 9 mmol/L; Blood Urea Nitrogen 16 mg/dL (7-17); Calcium 9.4 mg/dL (8.4-10.2); Carbon Dioxide 26 mmol/L (22-30); Chloride 106 mmol/L (98-107); Creatine Kinase 63 U/L (30-135); Glucose 110 mg/dL (74-99); Magnesium 1.8 mg/dL (1.6-2.3); Non-African American GFR(CKD) 86 (>60 ml/min/1.73 sqM); Phosphorus 3.9 mg/dL (2.5-4.5); Potassium 3.9 mmol/L (3.5-5.1); Sodium 141 mmol/L (137-145); Total Bilirubin 1.4 mg/dL (0.2-1.3); Total Protein 6.7 g/dL (6.3-8.2)
[2020-09-19] MEDS ORDERED: MORPHINE SULFATE 4 MG/ML SYRINGE IVP STA (03:58)
[2020-09-19] MEDS ORDERED: MORPHINE SULFATE 4 MG/ML SYRINGE IVP PRN (03:58)
[2020-09-19 04:11] LABS: D-Dimer 1.01 mg/L FEU (<0.60); Partial Thromboplastin Time 25.8 sec (22.0-30.0); Prothrombin Time 10.7 sec (9.0-12.0)
[2020-09-19] MEDS ORDERED: ENOXAPARIN 80 MG/0.8 ML SYRINGE SQ STA (04:44)
[2020-09-19] MEDS ORDERED: DIAZEPAM 5 MG/ML 2 ML INJ IVP STA (04:53)
[2020-09-19] MEDS: FUROSEMIDE 10 MG/ML 4 ML VIAL IV SCH ×2 (08:37→22:09)
[2020-09-19] MEDS: ENOXAPARIN 40 MG/0.4 ML SYRINGE SQ SCH (08:37)
[2020-09-19 09:20] LABS: Appearance,Urine Clear (Clear); Bilirubin,Urine Negative (Negative); Blood,Urine Negative (Negative); Color,Urine Colorless; Glucose,Urine (UA) Negative (Negative); Ketones,Urine Negative (Negative); Leukocyte Esterase,Urine Negative (Negative); Nitrite,Urine Negative (Negative); PH, Urine 5.5 (5.0-8.0); Protein,Urine Negative (Negative); Specific Gravity,Urine 1.007 (1.001-1.035); Urobilinogen,Urine <2.0 mg/dL (<2.0)
[2020-09-19] MEDS ORDERED: METOPROLOL TARTRATE 25 MG TAB PO SCH (09:45)
--- NOTE | 2020-09-19 10:51 | XR ---
EXAMINATION TYPE: XR Hip Complete LT DATE OF EXAM: 09/19/2020 CLINICAL HISTORY: Left hip pain. TECHNIQUE: AP and frogleg views of the left hip are obtained. COMPARISON: None. FINDINGS: Osseous structures are demineralized. There is no acute fracture/dislocation evident in the left hip. Mild to moderate axial joint space loss and acetabular spurring. Overlying clothing or elias nket material is present making evaluation slightly suboptimal. IMPRESSION: As above.
--- NOTE | 2020-09-19 10:52 | XR ---
EXAMINATION TYPE: XR knee complete LT DATE OF EXAM: 09/19/2020 CLINICAL HISTORY: Left knee pain. TECHNIQUE: Three views of the left knee are obtained. COMPARISON: None. FINDINGS: There is no acute fracture/dislocation evident in the left knee. Mild to moderate diffuse subcutaneous edema edema. Moderate to severe narrowing and mild spurring medial tibial femoral compar tment. Relative preservation of patellofemoral and lateral tibiofemoral compartments. IMPRESSION: Osteoarthritic changes.
--- NOTE | 2020-09-19 10:56 | US ---
EXAMINATION TYPE: US venous doppler duplex LE LT DATE OF EXAM: 09/19/2020 10:39 AM COMPARISON: NONE CLINICAL HISTORY: DVT. left leg pain. SIDE PERFORMED: Left TECHNIQUE: The lower extremity deep venous system is examined utilizing real time linear array sonog donnie with graded compression, doppler sonography and color-flow sonography. VESSELS IMAGED: Common Femoral Vein Deep Femoral Vein Greater Saphenous Vein * Femoral Vein Popliteal Vein Small Saphenous Vein * Proximal Calf Veins (* superficial vessels) Grayscale, color doppler, spectral doppler imaging performed of the deep veins of the left lower extr emity. There is normal flow, compressibility, vascular waveforms. Left Leg: Negative for DVT IMPRESSION: No ultrasound evidence for acute DVT in the left lower extremity.
--- NOTE | 2020-09-19 18:11 | P.HPIM ---
History of Present Illness This is a pleasant 79 years old female with past medical history of diabetes mellitus, hypertension, left breast cancer, covid infection on 06/12/2020,. Presents with bilateral leg swelling for the past month associated with worsen ing pain And she was admitted with a diagnosis of left leg cellulitis from emergency room. She is a patient of Dr. Grande. Patient presents because of 3 days of left hip pain without reported fall or trauma associated left foot swelling and thinks its doubled in size. She states right leg also swollen but less degree. That it is associated with difficulty walking Patient denies smoking, alcohol or illicit drugs. Also patient looks like she has an appointment with Dr. Alvarez to check her left hip and she missed that because she would be in the hospital and she asked to be seen by his team Vitals are stable and patient is afebrile. CBC is unremarkable, INR is 1.0. Basic metabolic panel and liver enzymes are not elevated. ProBNP is 308. Troponin is negative less than 0.012. Urinalysis is negative. Coronavirus is detected Left knee x-ray showing osteoarthritis changes. Left hip x-ray showing no fracture. Venous Doppler of the left lower extremity: No DVT. In the emergency room patient was started on ceftriaxone. Review of Systems CONSTITUTIONAL: No fever, no malaise, no fatigue. HEENT: No recent visual problems or hearing problems. Denied any sore throat. CARDIOVASCULAR: No orthopnea, PND, no palpitations, no syncope. PULMONARY: No shortness of breath, no cough, no hemoptysis. GASTROINTESTINAL: No diarrhea, no nausea, no vomiting, no abdominal pain. Normoactive bowel sounds. NEUROLOGICAL: No headaches, no weakness, no numbness. HEMATOLOGICAL: Denies any bleeding or petechiae. GENITOURINARY: Denies any burning micturition, frequency, or urgency. MUSCULOSKELETAL/RHEUMATOLOGICAL: Denies any joint pain, swelling, or any muscle pain. ENDOCRINE: Denies any polyuria or polydipsia. Past Medical History Past Medical History: Cancer, Diabetes Mellitus, Hypertension, Pneumonia Additional Past Medical History / Comment(s): Left breast cancer, COVID JUNE 12, 2020 History of Any Multi-Drug Resistant Organisms: None Reported Past Surgical History: Adenoidectomy, Breast Surgery, Hysterectomy, Orthopedic Surgery, Tonsillectomy Additional Past Surgical History / Comment(s): partial hysterectomy. right total hip replacement. Double Mastectomy Past Anesthesia/Blood Transfusion Reactions: No Reported Reaction Past Psychological History: No Psychological Hx Reported Smoking Status: Never smoker Past Alcohol Use History: Rare Past Drug Use History: None Reported - Past Family History Mother Family Medical History: No Reported History Father Family Medical History: No Reported History Sister(s) Family Medical History: Diabetes Mellitus Medications and Allergies Home Medications Medication Instructions Recorded Confirmed Type Gabapentin [Neurontin] 300 mg PO BID 12/09/19 09/19/20 History Glucos Sul 2Kcl/MSM/Chond/C/Mn 1 tab PO BID 12/09/19 09/19/20 History [Glucosamine Chondroitin Cap] Multivit-Min/Iron/Folic/Lutein 1 tab PO DAILY 12/09/19 09/19/20 History [Centrum Silver Women Tablet] Romayor-3 Fatty Acids/Fish Oil [Fish 1 cap PO DAILY 12/09/19 09/19/20 History Oil 1,000 mg Softgel] Vitamin B Complex 1 tab PO DAILY 12/09/19 09/19/20 History glipiZIDE/METFORMIN HCL 1 tab PO BID 12/09/19 09/19/20 History [glipiZIDE/METFORMIN HCL 2.5-500 mg] Metanx Supplement 2 cap PO BID 06/19/20 09/19/20 History Atorvastatin [Lipitor] 40 mg PO HS #30 tab 06/23/20 09/19/20 Rx Metoprolol Tartrate [Lopressor] 25 mg PO DIRECTED 06/26/20 09/19/20 History Potassium Chloride 10 meq PO DAILY 06/26/20 09/19/20 History Ascorbic Acid [Vitamin C] 500 mg PO DAILY 09/19/20 09/19/20 History Cholecalciferol [Vitamin D3 (25 25 mcg PO DAILY 09/19/20 09/19/20 History Mcg = 1000 Iu)] Furosemide [Lasix] 20 mg PO DIRECTED 09/19/20 09/19/20 History Losartan [Cozaar] 50 mg PO DAILY 09/19/20 09/19/20 History Nebivolol [Bystolic] 5 mg PO DAILY 09/19/20 09/19/20 History Tamsulosin [Flomax] 0.4 mg PO DAILY 09/19/20 09/19/20 History Zinc 50 mg PO DAILY 09/19/20 09/19/20 History Allergies Allergy/AdvReac Type Severity Reaction Status Date / Time bee venom protein (honey bee) Allergy Severe Swelling Verified 09/19/20 08:43 ampicillin Allergy Rash/Hives Verified 09/19/20 08:43 Physical Exam Vitals: Vital Signs Temp Pulse Pulse Resp BP BP Pulse Ox 09/19/20 07:00 97.8 F 68 20 123/71 95 09/19/20 02:12 98.7 F 72 18 163/74 95 Intake and Output 09/18/20 09/19/20 09/19/20 22:59 06:59 14:59 Intake Total 180 Output Total 900 Balance -720 Intake: Oral 180 Output: Urine 900 Other: Weight 86.183 kg 86.183 kg GENERAL: The patient is alert and oriented x3, not in any acute distress. Well developed, well nourished. HEENT: Pupils are round and equally reacting to light. EOMI. No scleral icterus. No conjunctival pallor. Normocephalic, atraumatic. No pharyngeal erythema. No thyromegaly. CARDIOVASCULAR: S1 and S2 present. No murmurs, rubs, or gallops. PULMONARY: Chest is clear to auscultation, no wheezing or crackles. ABDOMEN: Soft, nontender, nondistended, normoactive bowel sounds. No palpable organomegaly. MUSCULOSKELETAL: No joint swelling or deformity. -EXTREMITIES: No cyanosis, clubbing, or pedal edema. Distal left leg is swollen and warm compared to the right side and associated with pink tinge of color NEUROLOGICAL: Gross neurological examination did not reveal any focal deficits. SKIN: No rashes. No petechiae Results CBC & Chem 7: 09/19/20 03:00 09/19/20 03:00 Labs: Abnormal Lab Results - Last 24 Hours (Table) 09/19/20 09/19/20 09/19/20 Range/Units 03:00 03:00 03:50 D-Dimer 1.01 H (<0.60) mg/L FEU Glucose 110 H (74-99) mg/dL Total Bilirubin 1.4 H (0.2-1.3) mg/dL Coronavirus (PCR) Detected A (Not Detectd) Assessment and Plan Assessment: Left leg cellulitis Bilateral knee and generalized osteoarthritis, Diabetes mellitus Hypertension History of left breast cancer covid infection on 06/12/2020 Plan: this is a pleasant 79 years old female who presents with left leg cellulitis. Continue with ceftriaxone and consult infectious disease team Follow-up blood culture results. Consult orthopedic team per patient request Labs and medication were reviewed.. Continue same treatment. Continue with symptomatic treatment. Resume home medication. Monitor lytes and vitals. DVT and GI prophylaxis. Further recommendations depends on the clinical course of the patient DVT prophylaxis: Subcutaneous Lovenox GI Prophylaxis: Pepcid PT/OT: Pending Prognosis is guarded
[2020-09-19 20:11] LABS: Glucose,Whole Blood 235 mg/dL (75-99)
[2020-09-19] MEDS ORDERED: LORazepam 2 MG/ML INJ IV STA (21:55)
[2020-09-19] MEDS: GABAPENTIN 300 MG CAP PO SCH (22:08)
[2020-09-19] MEDS: ASCORBIC ACID 500 MG TAB PO SCH (22:08)
[2020-09-19] MEDS: FAMOTIDINE 20 MG/2 ML VIAL IV SCH (22:08)
[2020-09-19] MEDS: ATORVASTATIN 40 MG TAB PO SCH (22:08)
[2020-09-19] MEDS: traMADol 50 MG TAB PO PRN (22:20)
[2020-09-20] MEDS: traMADol 50 MG TAB PO PRN ×3 (04:20→23:44)
--- NOTE | 2020-09-20 08:21 | P.PN ---
Subjective Progress Note Date: 09/20/20 Principal diagnosis: Left lower extremity cellulitis.. This is an 79-year-old white female with admission for left lower extremity cellulitis. She recently had covert infection. No significant nausea or vomiting. She is tolerating diet and feels that she is improving with yanci ropriate antibiotic treatment. Objective - Vital Signs Vital signs: Vital Signs Temp 97.7 F 09/20/20 07:00 Pulse 76 09/20/20 07:00 Resp 21 09/20/20 07:00 BP 147/79 09/20/20 07:00 Pulse Ox 94 L 09/20/20 07:00 Intake & Output 09/19/20 09/20/20 09/20/20 18:59 06:59 18:59 Intake Total 900 Output Total 1500 1150 Balance -600 -1150 Weight 86.183 kg Intake: Oral 900 Output: Urine 1500 1150 - Constitutional General appearance: Present: average body habitus - EENT Eyes: Absent: abnormal pupil - Neck Neck: Absent: lymphadenopathy - Respiratory Respiratory: bilateral: CTA - Cardiovascular Rhythm: regular Heart sounds: normal: S1, S2 Abnormal Heart Sounds: Absent: S3 Gallop - Gastrointestinal General gastrointestinal: Present: soft. Absent: tenderness - Neurologic Neurologic: Present: CNII-XII intact - Psychiatric Psychiatric: Present: A&O x's 3 - Labs CBC & Chem 7: 09/19/20 03:00 09/19/20 03:00 Labs: Abnormal Lab Results - Last 24 Hours (Table) 09/19/20 Range/Units 20:08 POC Glucose (mg/dL) 235 H (75-99) mg/dL Microbiology - Last 24 Hours (Table) 09/19/20 03:24 Blood Culture - Preliminary Blood No Growth after 24 hours 09/19/20 03:00 Blood Culture - Preliminary Blood No Growth after 24 hours Assessment and Plan (1) Left leg cellulitis Current Visit: Yes Status: Acute Code(s): L03.116 - CELLULITIS OF LEFT LOWER LIMB SNOMED Code(s): 074534596 Plan: Into ceftriaxone. Appreciate multiple consultants input. Check CBC and CMP in a.m. Anticipate discharge in next 24-48 hours
[2020-09-20 08:29] LABS: Glucose,Whole Blood 158 mg/dL (75-99)
[2020-09-20] MEDS: INSULIN ASPART (NovoLOG) 100 UNIT/ML VIAL SQ SCH ×4 (08:30→21:41)
[2020-09-20] MEDS: LOSARTAN 50 MG TAB PO SCH (08:47)
[2020-09-20] MEDS: ZINC SULFATE 220 MG CAP PO SCH (08:47)
[2020-09-20] MEDS: ASCORBIC ACID 500 MG TAB PO SCH ×2 (08:47→21:42)
[2020-09-20] MEDS: GABAPENTIN 300 MG CAP PO SCH ×2 (08:47→21:42)
[2020-09-20] MEDS: POTASSIUM CHLORIDE ER 10 MEQ TAB.ER.PRT PO SCH (08:47)
[2020-09-20] MEDS: NEBIVOLOL 5 MG TAB PO SCH (08:48)
[2020-09-20] MEDS: FAMOTIDINE 20 MG/2 ML VIAL IV SCH (08:48)
[2020-09-20] MEDS: TAMSULOSIN 0.4 MG CAP.ER.24H PO SCH (08:48)
[2020-09-20] MEDS: ENOXAPARIN 40 MG/0.4 ML SYRINGE SQ SCH (08:48)
[2020-09-20] MEDS: FUROSEMIDE 10 MG/ML 4 ML VIAL IV SCH ×2 (08:54→22:38)
[2020-09-20 11:42] LABS: Glucose,Whole Blood 175 mg/dL (75-99)
[2020-09-20 16:57] LABS: Glucose,Whole Blood 174 mg/dL (75-99)
[2020-09-20 21:36] LABS: Glucose,Whole Blood 151 mg/dL (75-99)
[2020-09-20] MEDS: ATORVASTATIN 40 MG TAB PO SCH (21:42)
[2020-09-20] MEDS: FAMOTIDINE 20 MG TAB PO SCH (21:42)
--- NOTE | 2020-09-20 23:37 | CONS ---
CONSULTATION DATE OF SERVICE: 09/20/2020 REASON FOR CONSULTATION: 1. Left lower extremity cellulitis. 2. Positive Covid test. HISTORY OF PRESENT ILLNESS: The patient is an 79-year-old female who did have a history of COVID-19 infection end of May, beginning of June that was treated at this facility. The patient recovered and subsequently discharged back to her nursing home where the patient lives. The patient has now been sent to the ER yesterday morning for evaluation of bilateral extremity pain. she did have more swelling and redness to the left lower extremity compared to the right leg. The patient's symptoms have been going on for the last few days and has gotten really worse. The patient denies having any history of any trauma. Describing the pain to be more of a dull, aching, at times sharp 5-6 out of 10 and no radiation. The patient mentioned there was some redness to the left leg. The patient was diagnosed with left lower extremity cellulitis. She was started on Rocephin and admitted to the hospital. The patient did have a Doppler lower extremity which was negative for any DVT. She did have x-rays of the hip which did show demineralized osseous structure. No acute fracture or dislocation. The patient also had a positive COVID test. However, the patient denies having any shortness of breath. No chest pain. No URI symptoms and no cough. REVIEW OF SYSTEMS: Positive points have been mentioned in HPI. Rest of the systems are negative. PAST MEDICAL HISTORY: Diabetes mellitus, hypertension, pneumonia, history of breast cancer. PAST SURGICAL HISTORY: Adenoidectomy, , hysterectomy, tonsillectomy, right total hip replacement. SOCIAL HISTORY: No history of smoking. Rarely drinks. No drug use. FAMILY HISTORY: No pertinent findings noticed. ALLERGIES: PENICILLIN. MEDICATIONS: The patient is currently on vitamin C, Lipitor, Rocephin 1 q.12 hours. She is on Lovenox, Pepcid, Lasix, Neurontin, Cozaar, K-Dur, Flomax, Ultram and zinc. PHYSICAL EXAMINATION: Her blood pressure 137/77, pulse of 82, temperature 98.2. She is 93% on room air. General description is an elderly female lying in bed in no distress. HEENT: Examination shows no pallor or scleral icterus. Oral mucous membranes dry. NECK: Trachea central. No thyromegaly. LUNGS: Unlabored breathing. Clear to auscultation with no wheeze or crackles. HEART: S1, S2. Regular rate and rhythm. ABDOMEN: Soft. No tenderness. No guarding. No rigidity. EXTREMITIES: Left leg did have minimal swelling. No significant redness was noticed. No skin breakdown or any drainage. NEUROLOGICAL: Patient is awake, alert, oriented times three. Mood and affect normal. LABS: Hemoglobin is 12.4, white count 8.1. BUN of 16, creatinine 0.60. Lactic acid was elevated. Liver enzymes are normal. Blood culture negative. DIAGNOSTIC IMPRESSION AND PLAN: 1. Patient admitted to the hospital with lower extremity pain and swelling especially to the left leg. The patient mentioned there was some redness which apparently has resolved by the time of my evaluation. Concern for possible cellulitis that has responded to the Rocephin. 2. Positive Covid test. However, the patient does not have any respiratory symptoms. She did have a COVID-19 infection end of May and subsequently did have a positive IgM and IgG antibodies to the Covid as tested by her primary care physician. Clinically doubt active Covid infection this point. PLAN: 1. Patient to continue with Rocephin while inpatient. 2. To finish therapy with oral Keflex. 3. No specific treatment for the positive Covid test. 4. We will follow up on clinical condition and further adjust medication if needed. Thank you for this consultation. Will follow this patient along with you. MMODL / IJN: [id number] /
[2020-09-21 07:14] LABS: Glucose,Whole Blood 133 mg/dL (75-99)
[2020-09-21] MEDS: traMADol 50 MG TAB PO PRN (07:46)
[2020-09-21 08:04] VITALS: BP 168/87; PULSE 95; RESP 18; TEMP 98
[2020-09-21] MEDS ORDERED: traMADol 50 MG TAB PO PRN (08:17)
[2020-09-21] MEDS ORDERED: traMADol 50 MG TAB PO STA (08:23)
[2020-09-21] MEDS: NEBIVOLOL 5 MG TAB PO SCH (08:28)
[2020-09-21] MEDS: GABAPENTIN 300 MG CAP PO SCH (08:28)
[2020-09-21] MEDS: ZINC SULFATE 220 MG CAP PO SCH (08:28)
[2020-09-21] MEDS: FAMOTIDINE 20 MG TAB PO SCH (08:28)
[2020-09-21] MEDS: TAMSULOSIN 0.4 MG CAP.ER.24H PO SCH (08:28)
[2020-09-21] MEDS: ENOXAPARIN 40 MG/0.4 ML SYRINGE SQ SCH (08:29)
[2020-09-21] MEDS: ASCORBIC ACID 500 MG TAB PO SCH (08:29)
[2020-09-21] MEDS: POTASSIUM CHLORIDE ER 10 MEQ TAB.ER.PRT PO SCH (08:29)
[2020-09-21] MEDS: LOSARTAN 50 MG TAB PO SCH (08:29)
[2020-09-21] MEDS: FUROSEMIDE 10 MG/ML 4 ML VIAL IV SCH (08:29)
[2020-09-21 09:12] LABS: African American GFR (CKD) 99.1 (60.0-200.0); Albumin 3.6 g/dL (3.80-4.90); Albumin/Globulin Ratio 1.2 (1.60-3.17); Anion Gap 8.1 mmol/L (4.00-12.00); Calcium 8.8 mg/dL (8.7-10.3); Carbon Dioxide 34.9 mmol/L (21.6-31.8); HCT 38.4 % (37.2-46.3); HGB 11.9 g/dL (12.0-15.0); MCV 90.4 fL (80.0-97.0); Non-African American GFR(CKD) 85.5 (60.0-200.0); Platelet Count 346 X 10*3/uL (140-440); Potassium 3.4 mmol/L (3.5-5.5); RBC 4.25 X 10*6/uL (4.10-5.20); RDW 14.5 % (11.5-14.5); Total Bilirubin 1.4 mg/dL (0.3-1.2); Total Protein 6.6 g/dL (6.2-8.2)
[2020-09-21 11:07] LABS: Glucose,Whole Blood 180 mg/dL (75-99)
[2020-09-21] MEDS: INSULIN ASPART (NovoLOG) 100 UNIT/ML VIAL SQ SCH (12:42)
--- NOTE | 2020-09-21 12:55 | P.DS ---
Providers Date of admission: 09/19/20 04:08 Attending physician: Marcelino Grande Consults: 09/19/20 18:07 Consult Physician Urgent Consulting Provider: Max Duff Consult Reason/Comments: Left leg cellulitis Do you want consulting provider notified?: Yes Primary care physician: Marcelino Grande - Discharge Diagnosis(es) (1) Left leg cellulitis Current Visit: Yes Status: Acute Hospital Course: This is discharge him on 79-year-old white female centimeter for lower extremity cellulitis. 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 And because of this and including her infection, she has been struggling with mobility. She is agreeable to rehab and will be transferred to [facility] once bed is available. Prognosis excellent given her overall health. She has already been exposed to Covid and is antibody positive. The patient will now be transferred once that is available at [facility]. Patient Condition at Discharge: Good Plan - Discharge Summary New Discharge Prescriptions: New RX: traMADol HCl [Ultram] 100 mg PO QID PRN tab PRN Reason: Pain Continue RX: [place]-3 Fatty Acids/Fish Oil [Fish Oil 1,000 mg Softgel] 1 cap PO DAILY RX: Glucos Sul 2Kcl/MSM/Chond/C/Mn [Glucosamine Chondroitin Cap] 1 tab PO BID RX: Vitamin B Complex 1 tab PO DAILY RX: glipiZIDE/METFORMIN HCL [glipiZIDE/METFORMIN HCL 2.5-500 mg] 1 tab PO BID RX: Gabapentin [Neurontin] 300 mg PO BID RX: Multivit-Min/Iron/Folic/Lutein [Centrum Silver Women Tablet] 1 tab PO DAILY Metanx Supplement 2 cap PO BID RX: Atorvastatin [Lipitor] 40 mg PO HS #30 tab RX: Metoprolol Tartrate [Lopressor] 25 mg PO DIRECTED RX: Potassium Chloride 10 meq PO DAILY RX: Zinc 50 mg PO DAILY RX: Cholecalciferol [Vitamin D3 (25 Mcg = 1000 Iu)] 25 mcg PO DAILY RX: Ascorbic Acid [Vitamin C] 500 mg PO DAILY RX: Tamsulosin [Flomax] 0.4 mg PO DAILY RX: Nebivolol [Bystolic] 5 mg PO DAILY RX: Losartan [Cozaar] 50 mg PO DAILY RX: Furosemide [Lasix] 20 mg PO DIRECTED Discharge Medication List RX: Gabapentin [Neurontin] 300 mg PO BID 12/09/19 [History] RX: Glucos Sul 2Kcl/MSM/Chond/C/Mn [Glucosamine Chondroitin Cap] 1 tab PO BID 12/09/19 [History] RX: Multivit-Min/Iron/Folic/Lutein [Centrum Silver Women Tablet] 1 tab PO DAILY 12/09/19 [History] RX: [place]-3 Fatty Acids/Fish Oil [Fish Oil 1,000 mg Softgel] 1 cap PO DAILY 12/09/19 [History] RX: Vitamin B Complex 1 tab PO DAILY 12/09/19 [History] RX: glipiZIDE/METFORMIN HCL [glipiZIDE/METFORMIN HCL 2.5-500 mg] 1 tab PO BID 12/09/19 [History] Metanx Supplement 2 cap PO BID 06/19/20 [History] RX: Atorvastatin [Lipitor] 40 mg PO HS #30 tab 06/23/20 [Rx] RX: Metoprolol Tartrate [Lopressor] 25 mg PO DIRECTED 06/26/20 [History] RX: Potassium Chloride 10 meq PO DAILY 06/26/20 [History] RX: Ascorbic Acid [Vitamin C] 500 mg PO DAILY 09/19/20 [History] RX: Cholecalciferol [Vitamin D3 (25 Mcg = 1000 Iu)] 25 mcg PO DAILY 09/19/20 [History] RX: Furosemide [Lasix] 20 mg PO DIRECTED 09/19/20 [History] RX: Losartan [Cozaar] 50 mg PO DAILY 09/19/20 [History] RX: Nebivolol [Bystolic] 5 mg PO DAILY 09/19/20 [History] RX: Tamsulosin [Flomax] 0.4 mg PO DAILY 09/19/20 [History] RX: Zinc 50 mg PO DAILY 09/19/20 [History] RX: traMADol HCl [Ultram] 100 mg PO QID PRN tab 09/21/20 [Rx] Follow up Appointment(s)/Referral(s): Marcelino Grande MD [Primary Care Provider] - 1-2 days
== END 2020-09-21 15:10 ==
LOC: EC 02:11 → 6NMEDSUR 04:08
PROVIDERS: ADMIT Family Medicine; ATTEND Family Medicine
DX: L03.116 Cellulitis of left lower limb (principal); J44.1 Chronic obstructive pulmonary disease with (acute) exacerbation; I16.0 Hypertensive urgency; U07.1 COVID-19; E11.9 Type 2 diabetes mellitus without complications; I10 Essential (primary) hypertension; M15.9 Polyosteoarthritis, unspecified; Z79.4 Long term (current) use of insulin; Z85.3 Personal history of malignant neoplasm of breast; Z90.711 Acquired absence of uterus with remaining cervical stump; Z79.899 Other long term (current) drug therapy; Z79.02 Long term (current) use of antithrombotics/antiplatelets; Z83.3 Family history of diabetes mellitus; Z79.01 Long term (current) use of anticoagulants; Z79.83 Long term (current) use of bisphosphonates; Z90.13 Acquired absence of bilateral breasts and nipples; Z96.641 Presence of right artificial hip joint; Z91.030 Bee allergy status
CPT/HCPCS: 96376 ×3; 96366 ×3; 96372 ×3; 96375 ×2; 96365; 99285; 36415; 94760; 93005; 97162; 97166; 85379; 83880; 80053 ×2; 82550; 83605; 83735; 84100; 84484; 85025; 85027; 85610; 85730; 81003; 87040 ×2; 87635; 73502; 73562; 93971; G0378 ×3; J2060; J2270; J1940 ×4; J0696 ×4; J1650 ×3

== ENCOUNTER → 2021-05-06 | Outpatient (CLI) | payer MEDICARE, OTHER ==
--- NOTE | 2021-05-06 16:37 | US ---
EXAMINATION TYPE: US venous doppler duplex LE RT DATE OF EXAM: 05/06/2021 4:11 PM COMPARISON: NONE CLINICAL HISTORY: M79.661 Pain right lower limb. Pt states right leg pain and swelling SIDE PERFORMED: Right TECHNIQUE: The lower extremity deep venous system is examined utilizing real time linear array sonog donnie with graded compression, doppler sonography and color-flow sonography. VESSELS IMAGED: Common Femoral Vein Deep Femoral Vein Greater Saphenous Vein * Femoral Vein Popliteal Vein Small Saphenous Vein * Proximal Calf Veins (* superficial vessels) Right Leg: Negative for DVT IMPRESSION: 1. Right lower extremity ultrasound negative for deep venous thrombosis.
== END | disposition home or self-care (01) ==
LOC: RADUSWWP 15:53
PROVIDERS: ATTEND Family Medicine
DX: M79.661 Pain in right lower leg (principal); R22.41 Localized swelling, mass and lump, right lower limb

== ENCOUNTER 2022-09-29 01:29 | Inpatient (IN) | payer MEDICARE, OTHER ==
[2022-09-29 01:41] LABS: Glucose,Whole Blood 145 mg/dL (70-110)
[2022-09-29 02:03] LABS: Basophils # (A) 0.1 k/uL (0-0.2); Basophils % (A) 2 %; Eosinophils # (A) 0.4 k/uL (0-0.7); Eosinophils % (A) 5 %; HCT 40.4 % (34.0-46.0); HGB 13.1 gm/dL (11.4-16.0); Lymphocytes # (A) 2.7 k/uL (1.0-4.8); Lymphocytes % (A) 31 %; MCH 28.2 pg (25.0-35.0); MCHC 32.4 g/dL (31.0-37.0); MCV 87.2 fL (80.0-100.0); Mean Platelet Volume 7.3; Monocytes # (A) 0.7 k/uL (0-1.0); Monocytes % (A) 9 %; Neutrophils # (A) 4.4 k/uL (1.3-7.7); Neutrophils % (A) 51 %; Platelet Count 416 k/uL (150-450); RBC 4.64 m/uL (3.80-5.40); RDW 14.1 % (11.5-15.5); WBC 8.6 k/uL (3.8-10.6)
[2022-09-29 02:14] LABS: Partial Thromboplastin Time 24.8 sec (22.0-30.0); Prothrombin Time 10.4 sec (9.0-12.0)
[2022-09-29 02:19] LABS: ALT 24 U/L (4-34); AST 24 U/L (14-36); African American GFR (CKD) >90 (>60 ml/min/1.73 sqM); Albumin 4.1 g/dL (3.5-5.0); Alkaline Phosphatase 126 U/L (38-126); Anion Gap 10 mmol/L; Blood Urea Nitrogen 18 mg/dL (7-17); Calcium 9.4 mg/dL (8.4-10.2); Carbon Dioxide 25 mmol/L (22-30); Chloride 106 mmol/L (98-107); Glucose 136 mg/dL (74-99); Non-African American GFR(CKD) 87 (>60 ml/min/1.73 sqM); Potassium 4.3 mmol/L (3.5-5.1); Sodium 141 mmol/L (137-145); Total Protein 7.1 g/dL (6.3-8.2)
[2022-09-29 02:25] LABS: Appearance,Urine Clear (Clear); Bacteria,Urine Rare /hpf; Bilirubin,Urine Negative (Negative); Blood,Urine Negative (Negative); Color,Urine Yellow; Glucose,Urine (UA) Negative (Negative); Ketones,Urine Negative (Negative); Leukocyte Esterase,Urine Small (Negative); Mucus,Urine Rare /hpf; Nitrite,Urine Negative (Negative); Protein,Urine Negative (Negative); RBC,Urine <1 /hpf (0-5); Specific Gravity,Urine 1.019 (1.001-1.035); Squamous Epithelial Cell,Urine <1 /hpf (0-4); Urobilinogen,Urine <2.0 mg/dL (<2.0); WBC,Urine 2 /hpf (0-5)
--- NOTE | 2022-09-29 02:57 | ED ---
Weakness HPI - General Chief complaint: Weakness Stated complaint: Weakness Time Seen by Provider: 09/29/22 01:35 Source: EMS Mode of arrival: EMS Limitations: no limitations - History of Present Illness Initial comments: 82-year-old female past history of diabetes, breast cancer, hypertension who presents emergency department from [facility]. She lives in an independent apartments. She does have staff that comes in several times throughout the day to assist her with her activities. She reports that she was awoken in the middle the night by the press bucker who was going to take her to the bathroom. This is not abnormal for them. She reports that she attempted adulate however was extremely weak. The press bucker called EMS and it took 3 pe ople to get the patient onto the stretcher. She reports that she has chronic lumbar back pain with radiation into the right leg causes the right leg to be weak. She has had several therapy treatments. She has had injections in her lumbar spine. She follows with Dr. Orlando. She had an MRI in May but was told that she did not qualify for surgery due to her age. She denies any saddle anesthesia. No bowel or bladder incontinence. No new trauma. Patient unsure if she is capable of living independently. No other alleviating, precipitating or modifying factors - Related Data Home Medications Medication Instructions Recorded Confirmed Glucos Sul 2Kcl/MSM/Chond/C/Mn 1 tab PO BID 12/09/19 09/29/22 [Glucosamine Chondroitin Cap] Multivit-Min/Iron/Folic/Lutein 1 tab PO DAILY 12/09/19 09/29/22 [Centrum Silver Women Tablet] [place]-3 Fatty Acids/Fish Oil [Fish 1 cap PO DAILY 12/09/19 09/29/22 Oil 1,000 mg Softgel] Vitamin B Complex 1 cap PO DAILY 12/09/19 09/29/22 glipiZIDE/METFORMIN HCL 1 tab PO PC-BID 12/09/19 09/29/22 [glipiZIDE/METFORMIN HCL 2.5-500 mg] Metoprolol Tartrate [Lopressor] 12.5 mg PO PC-BID 06/26/20 09/29/22 Potassium Chloride [Potassium 10 meq PO PC-BRKFST 06/26/20 09/29/22 Chloride ER] Ascorbic Acid [Vitamin C] 500 mg PO DAILY 09/19/20 09/29/22 Cholecalciferol [Vitamin D3 (25 25 mcg PO DAILY 09/19/20 09/29/22 Mcg = 1000 Iu)] Furosemide [Lasix] 20 mg PO DAILY 09/19/20 09/29/22 Losartan [Cozaar] 50 mg PO DAILY 09/19/20 09/29/22 Tamsulosin [Flomax] 0.4 mg PO PC-BRKFST 09/19/20 09/29/22 Zinc 50 mg PO DAILY 09/19/20 09/29/22 amLODIPine [Norvasc] 10 mg PO DAILY 09/29/22 09/29/22 Previous Rx's Medication Instructions Recorded Atorvastatin [Lipitor] 40 mg PO HS #30 tab 06/23/20 Gabapentin [Neurontin] 400 mg PO BID #6 cap 09/29/22 traMADol HCl [Ultram] 50 mg PO TID #6 tab 09/29/22 Allergies Allergy/AdvReac Type Severity Reaction Status Date / Time bee venom protein (honey bee) Allergy Severe Swelling Verified 09/29/22 08:20 ampicillin Allergy Rash/Hives Verified 09/29/22 08:20 Review of Systems ROS Statement: Those systems with pertinent positive or pertinent negative responses have been documented in the HPI. ROS Other: All systems not noted in ROS Statement are negative. Past Medical History Past Medical History: Cancer, Diabetes Mellitus, Hypertension, Pneumonia Additional Past Medical History / Comment(s): Left breast History of Any Multi-Drug Resistant Organisms: None Reported Past Surgical History: Adenoidectomy, Breast Surgery, Hysterectomy, Orthopedic Surgery, Tonsillectomy Additional Past Surgical History / Comment(s): partial hysterectomy. right total hip replacement Past Anesthesia/Blood Transfusion Reactions: No Reported Reaction Past Psychological History: No Psychological Hx Reported Smoking Status: Never smoker Past Alcohol Use History: Rare Past Drug Use History: None Reported - Past Family History Mother Family Medical History: No Reported History Father Family Medical History: No Reported History Sister(s) Family Medical History: Diabetes Mellitus General Exam Limitations: no limitations Course Vital Signs 09/29/22 09/29/22 01:32 03:00 Temperature 98.1 F Pulse Rate 78 80 Respiratory 18 16 Rate Blood Pressure 137/124 127/79 O2 Sat by Pulse 97 98 Oximetry EKG Findings - EKG Comments: EKG Findings:: EKG demonstrates sinus rhythm with a rate of 84. MN interval 154. QRS 95. QTC 433. No acute ST segmental elevations or depressions Medical Decision Making - Medical Decision Making Was pt. sent in by a medical professional or institution (CHRISTOPHER Dobbs, SUPERVISOR OF RESEARCH, urgent care, hospital, or fpc...) When possible be specific @ -[facility] Did you speak to anyone other than the patient for history (EMS, parent, family, police, friend...)? What history was obtained from this source @ -ems Did you review nursing and triage notes (agree or disagree)? Why? @ -I reviewed and agree with nursing and triage notes Were old charts reviewed (outside hosp., previous admission, EMS record, old EKG, old radiological studies, urgent care reports/EKG's, fpc records)? Report findings @ -Old charts were reviewed Differential Diagnosis (chest pain, altered mental status, abdominal pain women, abdominal pain men, vaginal bleeding, weakness, fever, dyspnea, syncope, headache, dizziness, GI bleed, back pain, seizure, CVA, palpatations, mental health, musculoskeletal)? @ -chronic back pain, compression fracture, sciatica, cauda equina EKG interpreted by me (3pts min.). @ -Not done X-rays interpreted by me (1pt min.). @ -None done CT interpreted by me (1pt min.). @ -None done U/S interpreted by me (1pt. min.). @ -None done What testing was considered but not performed or refused? (CT, X-rays, U/S, labs)? Why? @ -Xrays and CT of lower back but patient has already had full workup What meds were considered but not given or refused? Why? @ -None Did you discuss the management of the patient with other professionals (maría lewisfessionaljuan a i.e. CHRISTOPHER Dobbs, SUPERVISOR OF RESEARCH, lab, RT, psych nurse, social sciences instructor, geothermal operating engineer, teacher, plant protection officer, correctional case manager)? Give summary @ -Admitting physician Was smoking cessation discussed for >3mins.? @ -No Was critical care preformed (if so, how long)? @ -No Were there social determinants of health that impacted care today? How? (Homelessness, low income, unemployed, alcoholism, drug addiction, transportation, low edu. Level, literacy, decrease access to med. care, longterm, rehab)? @ -No Was there de-escalation of care discussed even if they declined (Discuss DNR or withdrawal of care, Hospice)? DNR status @ -No What co-morbidities impacted this encounter? (DM, HTN, Smoking, COPD, CAD, Cancer, CVA, ARF, Chemo, Hep., AIDS, mental health diagnosis, sleep apnea, morbid obesity)? @ - chronic back pain Was patient admitted / discharged? Hospital course, mention meds given and route, prescriptions, significant lab abnormalities, going to OR and other pertinent info. On arrival patient is placed into room 6. A thorough history and physical exam was performed. Laboratory studies are conducted. Patient has had extensive workup of her back pain already. Laboratory studies are within normal limits. I called and spoke with the patient's medical power of ip attorney. She states that it is unsafe for the patient to be in her own apartment at this time and does recommend hospital observation. Patient may require rehab. I will consult case management and physical therapy. Patient was taken before in stable condition. Undiagnosed new problem with uncertain prognosis? @ -No Drug Therapy requiring intensive monitoring for toxicity (Heparin, Nitro, Insulin, Cardizem)? @ -No Were any procedures done? @ -No Diagnosis/symptom? chronic back pain, inability to ambulate Acute, or Chronic, or Acute on Chronic? @ -chronic Uncomplicated (without systemic symptoms) or Complicated (systemic symptoms)? @ -complicated Side effects of treatment? @ -allergic reaction Exacerbation, Progression, or Severe Exacerbation? @ -Yes Poses a threat to life or bodily function? How? (Chest pain, [place], [place], pneumonia, PE, COPD, DKA, ARF, appy, cholecystitis, CVA, Diverticulitis, Homicidal, Suicidal, threat to staff... and all critical care pts) @ -no - Lab Data Result diagrams: 09/29/22 01:55 09/29/22 01:55 Lab Results 09/29/22 09/29/22 09/29/22 Range/Units 01:39 01:55 01:55 WBC 8.6 (3.8-10.6) k/uL RBC 4.64 (3.80-5.40) m/uL Hgb 13.1 (11.4-16.0) gm/dL Hct 40.4 (34.0-46.0) % MCV 87.2 (80.0-100.0) fL MCH 28.2 (25.0-35.0) pg MCHC 32.4 (31.0-37.0) g/dL RDW 14.1 (11.5-15.5) % Plt Count 416 (150-450) k/uL MPV 7.3 Neutrophils % 51 % Lymphocytes % 31 % Monocytes % 9 % Eosinophils % 5 % Basophils % 2 % Neutrophils # 4.4 (1.3-7.7) k/uL Lymphocytes # 2.7 (1.0-4.8) k/uL Monocytes # 0.7 (0-1.0) k/uL Eosinophils # 0.4 (0-0.7) k/uL Basophils # 0.1 (0-0.2) k/uL PT 10.4 (9.0-12.0) sec INR 1.0 (<1.2) APTT 24.8 (22.0-30.0) sec Sodium (137-145) mmol/L Potassium (3.5-5.1) mmol/L Chloride (98-107) mmol/L Carbon Dioxide (22-30) mmol/L Anion Gap mmol/L BUN (7-17) mg/dL Creatinine (0.52-1.04) mg/dL Est GFR (CKD-EPI)AfAm (>60 ml/min/1.73 sqM) Est GFR (CKD-EPI)NonAf (>60 ml/min/1.73 sqM) Glucose (74-99) mg/dL POC Glucose (mg/dL) 145 H (70-110) mg/dL POC Glu Social Service Worker Yanci Hernandez Estimated [address] Glu mg/dL Hemoglobin A1c (0.0-6.0) % Plasma Lactic Acid Julio (0.7-2.0) mmol/L Calcium (8.4-10.2) mg/dL Magnesium (1.6-2.3) mg/dL Total Bilirubin (0.2-1.3) mg/dL AST (14-36) U/L ALT (4-34) U/L Alkaline Phosphatase (38-126) U/L Troponin I (0.000-0.034) ng/mL NT-Pro-B Natriuret Pep pg/mL Total Protein (6.3-8.2) g/dL Albumin (3.5-5.0) g/dL Urine Color Urine Appearance (Clear) Urine pH (5.0-8.0) Ur Specific [place] (1.001-1.035) Urine Protein (Negative) Urine Glucose (UA) (Negative) Urine Ketones (Negative) Urine Blood (Negative) Urine Nitrite (Negative) Urine Bilirubin (Negative) Urine Urobilinogen (<2.0) mg/dL Ur Leukocyte Esterase (Negative) Urine RBC (0-5) /hpf Urine WBC (0-5) /hpf Ur Squamous Epith Cells (0-4) /hpf Urine Bacteria (None) /hpf Urine Mucus (None) /hpf Influenza Type A (PCR) (Not Detectd) Influenza Type B (PCR) (Not Detectd) RSV (PCR) (Not Detectd) SARS-CoV-2 (PCR) (Not Detectd) 09/29/22 09/29/22 09/29/22 Range/Units 01:55 01:55 01:55 WBC (3.8-10.6) k/uL RBC (3.80-5.40) m/uL Hgb (11.4-16.0) gm/dL Hct (34.0-46.0) % MCV (80.0-100.0) fL MCH (25.0-35.0) pg MCHC (31.0-37.0) g/dL RDW (11.5-15.5) % Plt Count (150-450) k/uL MPV Neutrophils % % Lymphocytes % % Monocytes % % Eosinophils % % Basophils % % Neutrophils # (1.3-7.7) k/uL Lymphocytes # (1.0-4.8) k/uL Monocytes # (0-1.0) k/uL Eosinophils # (0-0.7) k/uL Basophils # (0-0.2) k/uL PT (9.0-12.0) sec INR (<1.2) APTT (22.0-30.0) sec Sodium 141 (137-145) mmol/L Potassium 4.3 (3.5-5.1) mmol/L Chloride 106 (98-107) mmol/L Carbon Dioxide 25 (22-30) mmol/L Anion Gap 10 mmol/L BUN 18 H (7-17) mg/dL Creatinine 0.54 (0.52-1.04) mg/dL Est GFR (CKD-EPI)AfAm >90 (>60 ml/min/1.73 sqM) Est GFR (CKD-EPI)NonAf 87 (>60 ml/min/1.73 sqM) Glucose 136 H (74-99) mg/dL POC Glucose (mg/dL) (70-110) mg/dL POC Glu Social Service Worker ID Estimated Ave Glu mg/dL Hemoglobin A1c (0.0-6.0) % Plasma Lactic Acid Julio 1.3 (0.7-2.0) mmol/L Calcium 9.4 (8.4-10.2) mg/dL Magnesium 2.0 (1.6-2.3) mg/dL Total Bilirubin 1.0 (0.2-1.3) mg/dL AST 24 (14-36) U/L ALT 24 (4-34) U/L Alkaline Phosphatase 126 (38-126) U/L Troponin I <0.012 (0.000-0.034) ng/mL NT-Pro-B Natriuret Pep pg/mL Total Protein 7.1 (6.3-8.2) g/dL Albumin 4.1 (3.5-5.0) g/dL Urine Color Urine Appearance (Clear) Urine pH (5.0-8.0) Ur Specific [place] (1.001-1.035) Urine Protein (Negative) Urine Glucose (UA) (Negative) Urine Ketones (Negative) Urine Blood (Negative) Urine Nitrite (Negative) Urine Bilirubin (Negative) Urine Urobilinogen (<2.0) mg/dL Ur Leukocyte Esterase (Negative) Urine RBC (0-5) /hpf Urine WBC (0-5) /hpf Ur Squamous Epith Cells (0-4) /hpf Urine Bacteria (None) /hpf Urine Mucus (None) /hpf Influenza Type A (PCR) (Not Detectd) Influenza Type B (PCR) (Not Detectd) RSV (PCR) (Not Detectd) SARS-CoV-2 (PCR) (Not Detectd) 09/29/22 09/29/22 09/29/22 Range/Units 01:55 01:55 01:55 WBC (3.8-10.6) k/uL RBC (3.80-5.40) m/uL Hgb (11.4-16.0) gm/dL Hct (34.0-46.0) % MCV (80.0-100.0) fL MCH (25.0-35.0) pg MCHC (31.0-37.0) g/dL RDW (11.5-15.5) % Plt Count (150-450) k/uL MPV Neutrophils % % Lymphocytes % % Monocytes % % Eosinophils % % Basophils % % Neutrophils # (1.3-7.7) k/uL Lymphocytes # (1.0-4.8) k/uL Monocytes # (0-1.0) k/uL Eosinophils # (0-0.7) k/uL Basophils # (0-0.2) k/uL PT (9.0-12.0) sec INR (<1.2) APTT (22.0-30.0) sec Sodium (137-145) mmol/L Potassium (3.5-5.1) mmol/L Chloride (98-107) mmol/L Carbon Dioxide (22-30) mmol/L Anion Gap mmol/L BUN (7-17) mg/dL Creatinine (0.52-1.04) mg/dL Est GFR (CKD-EPI)AfAm (>60 ml/min/1.73 sqM) Est GFR (CKD-EPI)NonAf (>60 ml/min/1.73 sqM) Glucose (74-99) mg/dL POC Glucose (mg/dL) (70-110) mg/dL POC Glu Social Service Worker ID Estimated Ave Glu mg/dL Hemoglobin A1c (0.0-6.0) % Plasma Lactic Acid Julio (0.7-2.0) mmol/L Calcium (8.4-10.2) mg/dL Magnesium (1.6-2.3) mg/dL Total Bilirubin (0.2-1.3) mg/dL AST (14-36) U/L ALT (4-34) U/L Alkaline Phosphatase (38-126) U/L Troponin I (0.000-0.034) ng/mL NT-Pro-B Natriuret Pep 114 pg/mL Total Protein (6.3-8.2) g/dL Albumin (3.5-5.0) g/dL Urine Color Yellow Urine Appearance Clear (Clear) Urine pH 5.0 (5.0-8.0) Ur Specific [place] 1.019 (1.001-1.035) Urine Protein Negative (Negative) Urine Glucose (UA) Negative (Negative) Urine Ketones Negative (Negative) Urine Blood Negative (Negative) Urine Nitrite Negative (Negative) Urine Bilirubin Negative (Negative) Urine Urobilinogen <2.0 (<2.0) mg/dL Ur Leukocyte Esterase Small H (Negative) Urine RBC <1 (0-5) /hpf Urine WBC 2 (0-5) /hpf Ur Squamous Epith Cells <1 (0-4) /hpf Urine Bacteria Rare H (None) /hpf Urine Mucus Rare H (None) /hpf Influenza Type A (PCR) Not Detected (Not Detectd) Influenza Type B (PCR) Not Detected (Not Detectd) RSV (PCR) Not Detected (Not Detectd) SARS-CoV-2 (PCR) Not Detected (Not Detectd) 09/29/22 Range/Units 01:55 WBC (3.8-10.6) k/uL RBC (3.80-5.40) m/uL Hgb (11.4-16.0) gm/dL Hct (34.0-46.0) % MCV (80.0-100.0) fL MCH (25.0-35.0) pg MCHC (31.0-37.0) g/dL RDW (11.5-15.5) % Plt Count (150-450) k/uL MPV Neutrophils % % Lymphocytes % % Monocytes % % Eosinophils % % Basophils % % Neutrophils # (1.3-7.7) k/uL Lymphocytes # (1.0-4.8) k/uL Monocytes # (0-1.0) k/uL Eosinophils # (0-0.7) k/uL Basophils # (0-0.2) k/uL PT (9.0-12.0) sec INR (<1.2) APTT (22.0-30.0) sec Sodium (137-145) mmol/L Potassium (3.5-5.1) mmol/L Chloride (98-107) mmol/L Carbon Dioxide (22-30) mmol/L Anion Gap mmol/L BUN (7-17) mg/dL Creatinine (0.52-1.04) mg/dL Est GFR (CKD-EPI)AfAm (>60 ml/min/1.73 sqM) Est GFR (CKD-EPI)NonAf (>60 ml/min/1.73 sqM) Glucose (74-99) mg/dL POC Glucose (mg/dL) (70-110) mg/dL POC Glu Social Service Worker ID Estimated Ave Glu mg/dL 169 Hemoglobin A1c 7.5 H (0.0-6.0) % Plasma Lactic Acid Julio (0.7-2.0) mmol/L Calcium (8.4-10.2) mg/dL Magnesium (1.6-2.3) mg/dL Total Bilirubin (0.2-1.3) mg/dL AST (14-36) U/L ALT (4-34) U/L Alkaline Phosphatase (38-126) U/L Troponin I (0.000-0.034) ng/mL NT-Pro-B Natriuret Pep pg/mL Total Protein (6.3-8.2) g/dL Albumin (3.5-5.0) g/dL Urine Color Urine Appearance (Clear) Urine pH (5.0-8.0) Ur Specific [place] (1.001-1.035) Urine Protein (Negative) Urine Glucose (UA) (Negative) Urine Ketones (Negative) Urine Blood (Negative) Urine Nitrite (Negative) Urine Bilirubin (Negative) Urine Urobilinogen (<2.0) mg/dL Ur Leukocyte Esterase (Negative) Urine RBC (0-5) /hpf Urine WBC (0-5) /hpf Ur Squamous Epith Cells (0-4) /hpf Urine Bacteria (None) /hpf Urine Mucus (None) /hpf Influenza Type A (PCR) (Not Detectd) Influenza Type B (PCR) (Not Detectd) RSV (PCR) (Not Detectd) SARS-CoV-2 (PCR) (Not Detectd) Disposition Clinical Impression: Right leg weakness, Inability to ambulate due to multiple joints Disposition: ADMITTED IP TO THIS HOSP Condition: Stable Is patient prescribed a controlled substance at d/c from ED?: No Time of Disposition: 03:35 Decision to Admit Reason: Admit from EC Decision Date: 09/29/22 Decision Time: 03:35
[2022-09-29 03:33] VITALS: RESP 16
[2022-09-29] MEDS ORDERED: NALOXONE 0.4 MG/ML 1 ML VIAL IV PRN (03:36)
[2022-09-29] MEDS ORDERED: NON FORMULARY DRUG (Omega-3 Fatty Acids/Fish Oil [Fish Oil 1,000 Mg Softgel] 1 EACH Capsul PO SCH (10:00)
[2022-09-29] MEDS ORDERED: NON FORMULARY DRUG (Vitamin B Complex [Vitamin B Complex] 1 EACH Capsule) PO SCH (10:00)
[2022-09-29] MEDS ORDERED: LOSARTAN 50 MG TAB PO SCH (10:15)
[2022-09-29] MEDS ORDERED: ASCORBIC ACID 500 MG TAB PO SCH (10:15)
[2022-09-29] MEDS ORDERED: CHOLECALCIFEROL 25 MCG (1000 IU) TABLET PO SCH (10:15)
[2022-09-29] MEDS ORDERED: ZINC SULFATE 220 MG CAP PO SCH (10:15)
[2022-09-29] MEDS ORDERED: metFORMIN 500 MG TAB PO SCH (10:15)
[2022-09-29] MEDS ORDERED: TAMSULOSIN 0.4 MG CAP.ER.24H PO SCH (10:15)
[2022-09-29] MEDS ORDERED: MULTIVITAMINS, THERA 1 EACH TAB PO SCH (10:15)
[2022-09-29] MEDS ORDERED: oxyCODONE-APAP 5-325MG 1 EACH TAB PO PRN (11:27)
[2022-09-29] MEDS ORDERED: FUROSEMIDE 20 MG TAB PO SCH (11:30)
[2022-09-29] MEDS ORDERED: GABAPENTIN 400 MG CAP PO SCH (11:30)
[2022-09-29 12:14] VITALS: BP 152/78; PULSE 89; TEMP 97.9
[2022-09-29 12:46] LABS: Glucose,Whole Blood 145 mg/dL (70-110)
[2022-09-29] MEDS ORDERED: DEXTROSE 50% SYRINGE 50 ML IVP PRN ×2 (13:01)
[2022-09-29] MEDS: traMADol 50 MG TAB PO SCH ×2 (13:07→17:19)
[2022-09-29] MEDS ORDERED: INSULIN ASPART (NovoLOG) 100 UNIT/ML VIAL SQ SCH (13:15)
[2022-09-29] MEDS ORDERED: FUROSEMIDE 10 MG/ML 4 ML VIAL IV STA (13:26)
--- NOTE | 2022-09-29 13:56 | P.HPIM ---
History of Present Illness H&P Date: 09/29/22 This is a 82-year-old female who presented to the emergency department as she lives at [facility] via EMS with reports of extremity weakness and difficulty with ambulation. Patient follows with Dr. Grande in the outpatient setting with a past medical history of breast cancer, diabetes mellitus, hypertension, chronic back pain, right arm lymphedema, and obesity. Patient reports she chronically takes Lasix low dose for the lower extremity swelling and uses compression stockings when her legs become more swollen. Patient also has chronic right arm lymphedema of which she normally wears a sleeve does not have with her. Patient is a diabetic although does not use insulins and follows a diet and uses oral diabetic agents. Patient also reports she follows with Dr. Garcia in the outpatient setting for her chronic lower back pain and was told she is not a surgical candidate and does not want any surgical interventions given her age but does have some increased pain and weakness due to her nerve pain that radiates down the right side making it more difficult for her to walk. Patient was admitted for therapy evaluation with possible ECF. On review labs reveal no white blood count, currently 8.6, hemoglobin is 13.1, sodium 141, potassium 4.3, BUN is 18, creatinine 0.54, blood sugar 136, magnesium 2.0, troponin negative, BNP 114, urinalysis was clear and virology testing including Covid, influenza, RSV are all negative. Review Of Systems: Constitutional: No fever, no chills, no night sweats. No weight change. No weakness, fatigue or lethargy. No daytime sleepiness. EENT: No headache. No blurred vision or double vision, no loss of vision. No loss of Hearing, no ringing in the ears, no dizziness. No nasal drainage or congestion. No epistaxis. No sore throat. Lungs: No shortness of breath, cough, no sputum production. No wheezing. Cardiovascular: No chest pain, no lower extremity edema. No palpitations. No paroxysmal nocturnal dyspnea. No orthopnea. No lightheadedness or dizziness. No syncopal episodes. Abdominal: No abdominal pain. No nausea, vomiting. No diarrhea. No constipation. No bloody or tarry stools.. No loss of appetite. Genitourinary: No dysuria, increased frequency, urgency. No urinary retention. Musculoskeletal: No myalgias. rePorts muscle weakness, reports gait dysfunction, no frequent falls. reports chronic back pain. No neck pain. Integumentary: No wounds, no lesions. No rash or pruritus. No unusual bruising. No change in hair or nails. Neurologic: No aphasia. No facial droop. No change in mentation. No head injury. No headache. No paralysis. No paresthesia. Psychiatric: No depression. No anxiety. No mood swings. Endocrine: No abnormal blood sugars. No weight change. No excessive sweating or thirst. No cold intolerance. PHYSICAL EXAMINATION: GENERAL: The patient is alert and oriented x4, Well developed, well nourished. Obese HEENT: Pupils are round and equally reacting to light. EOMI. no scleral icterus. No conjunctival pallor. Normocephalic, atraumatic. No pharyngeal erythema. No thyromegaly. CARDIOVASCULAR: S1 and S2 muffled PULMONARY: diminished breath sounds bilaterally with no wheezing or rhonchi noted. ABDOMEN: soft. Nontender on exam. obese. non-distended, normoactive bowel sounds. No palpable organomegaly. MUSCULOSKELETAL: No joint swelling or deformity. EXTREMITIES: No cyanosis, clubbing, bilateral lower extremity edema with some mild 1+ pitting edema noted of extremities with no surrounding redness or drainage noted skin is intact. Right upper extremity with some swelling and chronic lymphedema noted NEUROLOGICAL: Gross neurological examination did not reveal any focal deficits. Diffuse weakness SKIN: No rashes. Assessment: Gait dysfunction, immobility secondary to chronic back pain Bilateral lower extremity edema, chronic Obesity with a BMI of 32.1 Diabetes mellitus type 2, [id number] History of left breast cancer with chronic right arm lymphedema GI prophylaxis DVT prophylaxis Full code Plan: Recommend to continue with current medications and management and physical therapy for evaluation. PT/OT therapy evaluated the patient recommending subacute rehab as patient would benefit from more aggressive treatment than what she was receiving at [facility]. Patient with significant weakness most likely secondary to her chronic lower back pain of which she follows with Dr. Garcia outpatient and is maintained on gabapentin and is a nonsurgical patient Patient does take low-dose Lasix and would recommend continue and monitor labs and will give 1 dose of IV Lasix as patient does have lower extremity swelling and would recommend compression stockings and/or Froy wraps from the toes up to the knees and elevating well at rest Case management following working on discharge planning to EC and patient is agreeable Will likely discharge today. The impression and plan of care has been dictated by Selina Sorto, nurse practitioner as directed. Dr. Therese MD I have performed a history and examination and MDM of this patient, discussed the same with the dictator, and agree with the dictator's assessment and plan as written ,documented as a scribe. Based on total visit time, I have performed more than 50% of the visit. Any additional findings or plans will be noted. Past Medical History Past Medical History: Cancer, Diabetes Mellitus, Hypertension, Pneumonia Additional Past Medical History / Comment(s): Left breast History of Any Multi-Drug Resistant Organisms: None Reported Past Surgical History: Adenoidectomy, Breast Surgery, Hysterectomy, Orthopedic Surgery, Tonsillectomy Additional Past Surgical History / Comment(s): partial hysterectomy. right total hip replacement Past Anesthesia/Blood Transfusion Reactions: No Reported Reaction Past Psychological History: No Psychological Hx Reported Smoking Status: Never smoker Past Alcohol Use History: Rare Past Drug Use History: None Reported - Past Family History Mother Family Medical History: No Reported History Father Family Medical History: No Reported History Sister(s) Family Medical History: Diabetes Mellitus Medications and Allergies Home Medications Medication Instructions Recorded Confirmed Type Glucos Sul 2Kcl/MSM/Chond/C/Mn 1 tab PO BID 12/09/19 09/29/22 History [Glucosamine Chondroitin Cap] Multivit-Min/Iron/Folic/Lutein 1 tab PO DAILY 12/09/19 09/29/22 History [Centrum Silver Women Tablet] [place]-3 Fatty Acids/Fish Oil [Fish 1 cap PO DAILY 12/09/19 09/29/22 History Oil 1,000 mg Softgel] Vitamin B Complex 1 cap PO DAILY 12/09/19 09/29/22 History glipiZIDE/METFORMIN HCL 1 tab PO PC-BID 12/09/19 09/29/22 History [glipiZIDE/METFORMIN HCL 2.5-500 mg] Atorvastatin [Lipitor] 40 mg PO HS #30 tab 06/23/20 09/29/22 Rx Metoprolol Tartrate [Lopressor] 12.5 mg PO PC-BID 06/26/20 09/29/22 History Potassium Chloride [Potassium 10 meq PO PC-BRKFST 06/26/20 09/29/22 History Chloride ER] Ascorbic Acid [Vitamin C] 500 mg PO DAILY 09/19/20 09/29/22 History Cholecalciferol [Vitamin D3 (25 25 mcg PO DAILY 09/19/20 09/29/22 History Mcg = 1000 Iu)] Furosemide [Lasix] 20 mg PO DAILY 09/19/20 09/29/22 History Losartan [Cozaar] 50 mg PO DAILY 09/19/20 09/29/22 History Tamsulosin [Flomax] 0.4 mg PO PC-BRKFST 09/19/20 09/29/22 History Zinc 50 mg PO DAILY 09/19/20 09/29/22 History Gabapentin [Neurontin] 400 mg PO BID #6 cap 09/29/22 Rx amLODIPine [Norvasc] 10 mg PO DAILY 09/29/22 09/29/22 History traMADol HCl [Ultram] 50 mg PO TID #6 tab 09/29/22 Rx Allergies Allergy/AdvReac Type Severity Reaction Status Date / Time bee venom protein (honey bee) Allergy Severe Swelling Verified 09/29/22 08:20 ampicillin Allergy Rash/Hives Verified 09/29/22 08:20 Physical Exam Vitals: Vital Signs Temp Pulse Pulse Resp BP BP Pulse Ox 09/29/22 08:00 97.8 F 99 131/68 92 L 09/29/22 05:00 16 09/29/22 04:21 98.2 F 90 16 132/62 95 09/29/22 03:00 80 16 127/79 98 09/29/22 01:32 98.1 F 78 18 137/124 97 Intake and Output 09/28/22 09/29/22 09/29/22 22:59 06:59 14:59 Intake Total 300 Balance 300 Intake: Oral 300 Other: Voiding Method Diaper Diaper External Catheter External Catheter Weight 92.986 kg Results CBC & Chem 7: 09/29/22 01:55 09/29/22 01:55 Labs: Abnormal Lab Results - Last 24 Hours (Table) 09/29/22 09/29/22 09/29/22 Range/Units 01:39 01:55 01:55 BUN 18 H (7-17) mg/dL Glucose 136 H (74-99) mg/dL POC Glucose (mg/dL) 145 H (70-110) mg/dL Ur Leukocyte Esterase Small H (Negative) Urine Bacteria Rare H (None) /hpf Urine Mucus Rare H (None) /hpf Thrombosis Risk Factor Assmnt - DVT/VTE Prophylaxis DVT/VTE Prophylaxis: Pharmacologic Prophylaxis ordered - Choose All That Apply Any of the Below Risk Factors Present?: Yes Each Factor Represents 1 point: Medical pt on bed rest, Obesity (BMI >25), Swollen legs (current) Other Risk Factors: Yes Each Risk Factor Represents 2 Points: Malignancy Each Risk Factor Represents 3 Points: Age 75 years or older Other congenital or acquired thrombophilia - If yes, enter type in comment: No Thrombosis Risk Factor Assessment Total Risk Factor Score: 8 Thrombosis Risk Factor Assessment Level: High Risk Assessment and Plan Time with Patient: Greater than 30
--- NOTE | 2022-09-29 14:01 | P.DS ---
Providers Date of admission: 09/29/22 03:36 Expected date of discharge: 09/29/22 Attending physician: Marcelino Grande Primary care physician: Marcelino Grande Hospital Course: Final diagnosis Gait dysfunction, immobility secondary to chronic lower back pain Bilateral lower extremity edema, chronic Obesity with a BMI of 32.1 Diabetes mellitus type 2, [id number] History of left breast cancer with chronic right arm lymphedema GI prophylaxis DVT prophylaxis Full code Discharge disposition Patient is being discharged in a stable condition with guarded prognosis to [facility]. Patient will follow-up with Dr. Barkley in the outpatient setting upon discharge. Patient is to continue with Froy wraps for compression stockings to bilateral lower extremities from the toes up to the knees and elevating while at rest. Total time taken is greater than 35 minutes. Hospital course This is a 82-year-old female who was recently admitted with bilateral lower extremity weakness and difficulty in ambulation and gait dysfunction and being closely monitored. Patient was evaluated by physical therapy recommending subacute rehab and patient is agreeable. Patient does have significant lower extremity swelling and would recommend continuing with her Lasix and Froy wrapping lower extremities from toes up to the knees or using compression stockings while at rest. Patient also with chronic right arm lymphedema would recommend using a compression stocking. Patient does have some increased excoriation in the groin area and would recommend using nystatin powder and keeping the area as dry as possible. Currently no reports of chest pain, shortness of breath, or palpitations. Patient is afebrile. No reports of nausea or vomiting and patient is tolerating diet. Patient will be going to [facility] today. Guarded prognosis. Physical exam: Gen: This is a 82-year-old female is awake, alert and oriented 3, well- developed, well-nourished, obese HEENT: Head is atraumatic, normocephalic. Pupils equal, round. Sclerae is anicte kina. NECK: Supple. No JVD. No lymphadenopathy. No thyromegaly. LUNGS: Clear to auscultation. No wheezes or rhonchi. No intercostal retractions. HEART: Regular rate and rhythm. No murmur. ABDOMEN: Soft. Obese Bowel sounds are present. No masses. No tenderness. EXTREMITIES: biLateral lower extremity edema, 1+ pitting of lower extremities. No calf tenderness. NEUROLOGICAL: Patient is awake, alert and oriented x3. Cranial nerves 2 through 12 are grossly intact. Diffusely weak Please refer to medication reconciliation sheet for a list of medications. The impression and plan of care has been dictated by Selina Sorto, Nurse Practitioner as directed. Dr. Therese MD I have performed a history and examination and MDM of this patient, discussed the same with the dictator, and agree with the dictator's assessment and plan as written ,documented as a scribe. Based on total visit time, I have performed more than 50% of the visit. Patient Condition at Discharge: Stable Plan - Discharge Summary Discharge Rx Participant: No New Discharge Prescriptions: New traMADol HCl [Ultram] 50 mg PO TID #6 tab Continue [place]-3 Fatty Acids/Fish Oil [Fish Oil 1,000 mg Softgel] 1 cap PO DAILY Glucos Sul 2Kcl/MSM/Chond/C/Mn [Glucosamine Chondroitin Cap] 1 tab PO BID Vitamin B Complex 1 cap PO DAILY glipiZIDE/METFORMIN HCL [glipiZIDE/METFORMIN HCL 2.5-500 mg] 1 tab PO PC-BID Multivit-Min/Iron/Folic/Lutein [Centrum Silver Women Tablet] 1 tab PO DAILY Atorvastatin [Lipitor] 40 mg PO HS #30 tab Metoprolol Tartrate [Lopressor] 12.5 mg PO PC-BID Potassium Chloride [Potassium Chloride ER] 10 meq PO PC-BRKFST Zinc 50 mg PO DAILY Cholecalciferol [Vitamin D3 (25 Mcg = 1000 Iu)] 25 mcg PO DAILY Ascorbic Acid [Vitamin C] 500 mg PO DAILY Tamsulosin [Flomax] 0.4 mg PO PC-BRKFST Losartan [Cozaar] 50 mg PO DAILY Furosemide [Lasix] 20 mg PO DAILY Gabapentin [Neurontin] 400 mg PO BID #6 cap amLODIPine [Norvasc] 10 mg PO DAILY Discontinued oxyCODONE HCL/ACETAMINOPHEN [Percocet 5-325 mg] 1 tab PO Q6H PRN PRN Reason: Pain Discharge Medication List Glucos Sul 2Kcl/MSM/Chond/C/Mn [Glucosamine Chondroitin Cap] 1 tab PO BID 12/09/19 [History] Multivit-Min/Iron/Folic/Lutein [Centrum Silver Women Tablet] 1 tab PO DAILY 12/09/19 [History] [place]-3 Fatty Acids/Fish Oil [Fish Oil 1,000 mg Softgel] 1 cap PO DAILY 12/09/19 [History] Vitamin B Complex 1 cap PO DAILY 12/09/19 [History] glipiZIDE/METFORMIN HCL [glipiZIDE/METFORMIN HCL 2.5-500 mg] 1 tab PO PC-BID 12/09/19 [History] Atorvastatin [Lipitor] 40 mg PO HS #30 tab 06/23/20 [Rx] Metoprolol Tartrate [Lopressor] 12.5 mg PO PC-BID 06/26/20 [History] Potassium Chloride [Potassium Chloride ER] 10 meq PO PC-BRKFST 06/26/20 [History] Ascorbic Acid [Vitamin C] 500 mg PO DAILY 09/19/20 [History] Cholecalciferol [Vitamin D3 (25 Mcg = 1000 Iu)] 25 mcg PO DAILY 09/19/20 [History] Furosemide [Lasix] 20 mg PO DAILY 09/19/20 [History] Losartan [Cozaar] 50 mg PO DAILY 09/19/20 [History] Tamsulosin [Flomax] 0.4 mg PO PC-BRKFST 09/19/20 [History] Zinc 50 mg PO DAILY 09/19/20 [History] Gabapentin [Neurontin] 400 mg PO BID #6 cap 09/29/22 [Rx] amLODIPine [Norvasc] 10 mg PO DAILY 09/29/22 [History] traMADol HCl [Ultram] 50 mg PO TID #6 tab 09/29/22 [Rx] Follow up Appointment(s)/Referral(s): Marcelino Grande MD [Primary Care Provider] - 1-2 days Activity/Diet/Wound Care/Special Instructions: Patient is going to [facility] as tolerated Recommend Accu-Cheks before meals and at bedtime and may use sliding scale if needed NovoLog sliding scale 0-150 equals 0 units 151-200 equals 2 units 201-250 equals 4 units 251-300 equals 6 units 301-350 equals 8 units 351-400 equals 10 units Please notify provider if blood sugar is 400 or above Would recommend Froy wraps from bilateral lower extremities from the toes up to the knees and elevating while at rest Would recommend compression sleeve for her right upper extremity Recommend to continue with consistent carb diet Discharge Disposition: TRANSFER TO SNF/ECF
[2022-09-29] MEDS ORDERED: NYSTATIN 100,000 UNIT/GM POWD 15 GM TOPICAL SCH (16:00)
[2022-09-29] MEDS ORDERED: METOPROLOL TARTRATE 12.5 MG TAB PO SCH (18:30)
[2022-09-29] MEDS ORDERED: ATORVASTATIN 40 MG TAB PO SCH (21:00)
[2022-09-29] MEDS ORDERED: NON FORMULARY DRUG (Glucos Sul 2kcl/Msm/Chond/C/Mn [Glucosamine Chondroitin Cap] 1 EACH Ca PO SCH (21:00)
[2022-09-30] MEDS ORDERED: amLODIPine 10 MG TAB PO SCH (09:00)
== END 2022-09-29 17:50 | DRG 552 ==
LOC: EC 01:29 → 5NMEDONC 03:36
PROVIDERS: ADMIT Family Medicine; ATTEND Family Medicine
DX: M54.50 Low back pain, unspecified (principal); G89.29 Other chronic pain; R26.9 Unspecified abnormalities of gait and mobility; E11.9 Type 2 diabetes mellitus without complications; R60.0 Localized edema; Z20.822 Contact with and (suspected) exposure to COVID-19; Z28.310 Unvaccinated for COVID-19; I10 Essential (primary) hypertension; I97.2 Postmastectomy lymphedema syndrome; E66.9 Obesity, unspecified; Z68.32 Body mass index [BMI] 32.0-32.9, adult; Z79.84 Long term (current) use of oral hypoglycemic drugs; Z79.899 Other long term (current) drug therapy; Z96.641 Presence of right artificial hip joint; Z85.3 Personal history of malignant neoplasm of breast; Z88.0 Allergy status to penicillin; Z91.030 Bee allergy status
CPT/HCPCS: 36415; 80053; 81001; 83036; 83605; 83735; 83880; 84484; 85025; 85610; 85730; 87635; 87636; 93005; 99285

== ENCOUNTER 2023-01-12 09:23 | Emergency (ER) | payer MEDICARE, OTHER ==
[2023-01-12 09:30] VITALS: BP 121/76; PULSE 71; RESP 18; TEMP 97.9
--- NOTE | 2023-01-12 10:07 | ED ---
General Adult HPI - General Chief complaint: Extremity Injury, Upper Stated complaint: lymphodema Time Seen by Provider: 01/12/23 09:32 Source: patient Mode of arrival: wheelchair Limitations: no limitations - History of Present Illness Initial comments: Dictation was produced using [employer] dictation software. please excuse any grammatical, word or spelling errors. Chief Complaint: 82-year-old feel presents emergency department for right arm pain and urinary retention History of Present Illness: 82-year-old female presents emergency department for redness pain to the right upper extremity and urinary retention. Patient is a resident at [facility] with parents with nursing staff from the facility. The last couple days patient has worsening pain and redness to the right arm. She has history of lymphedema and bilateral mastectomy. She has chronic lymphedema to the right arm. Last couple days patient states that she has not been urinating. Denies any abdominal pain at this time. She is told that her urine was cloudy and dark in color. The ROS documented in this emergency department record has been reviewed and con firmed by me. Those systems with pertinent positive or negative responses have been documented in the HPI. All other systems are other negative and/or noncontributory. - Related Data Home Medications Medication Instructions Recorded Confirmed Glucos Sul 2Kcl/MSM/Chond/C/Mn 1 tab PO BID 12/09/19 01/12/23 [Glucosamine Chondroitin Cap] [place]-3 Fatty Acids/Fish Oil [Fish 1 cap PO DAILY 12/09/19 01/12/23 Oil 1,000 mg Softgel] glipiZIDE/METFORMIN HCL 1 tab PO BID 12/09/19 01/12/23 [glipiZIDE/METFORMIN HCL 2.5-500 mg] Metoprolol Tartrate [Lopressor] 12.5 mg PO BID 06/26/20 01/12/23 Potassium Chloride [Potassium 10 meq PO DAILY 06/26/20 01/12/23 Chloride ER] Ascorbic Acid [Vitamin C] 500 mg PO DAILY 09/19/20 01/12/23 Cholecalciferol [Vitamin D3 (25 25 mcg PO DAILY 09/19/20 01/12/23 Mcg = 1000 Iu)] Furosemide [Lasix] 20 mg PO DAILY 09/19/20 01/12/23 Losartan [Cozaar] 50 mg PO DAILY 09/19/20 01/12/23 Tamsulosin [Flomax] 0.4 mg PO DAILY 09/19/20 01/12/23 Zinc 50 mg PO DAILY 09/19/20 01/12/23 amLODIPine [Norvasc] 10 mg PO DAILY 09/29/22 01/12/23 Multivitamins, Thera [Multivitamin 1 tab PO DAILY 01/12/23 01/12/23 (formulary)] Nystatin 100,000Unit/gm Cream 1 applic TOPICAL TID 01/12/23 01/12/23 [Mycostatin Cream] Previous Rx's Medication Instructions Recorded Atorvastatin [Lipitor] 40 mg PO HS #30 tab 06/23/20 Gabapentin [Neurontin] 400 mg PO BID #6 cap 09/29/22 traMADol HCl [Ultram] 50 mg PO TID #6 tab 09/29/22 Allergies Allergy/AdvReac Type Severity Reaction Status Date / Time bee venom protein (honey bee) Allergy Severe Swelling Verified 01/12/23 12:06 ampicillin Allergy Rash/Hives Verified 01/12/23 12:06 Review of Systems ROS Statement: Those systems with pertinent positive or pertinent negative responses have been documented in the HPI. ROS Other: All systems not noted in ROS Statement are negative. Past Medical History Past Medical History: Cancer, Diabetes Mellitus, Hypertension, Pneumonia Additional Past Medical History / Comment(s): Left breast History of Any Multi-Drug Resistant Organisms: None Reported Past Surgical History: Adenoidectomy, Breast Surgery, Hysterectomy, Orthopedic Surgery, Tonsillectomy Additional Past Surgical History / Comment(s): partial hysterectomy. right total hip replacement Past Anesthesia/Blood Transfusion Reactions: No Reported Reaction Past Psychological History: No Psychological Hx Reported Smoking Status: Never smoker Past Alcohol Use History: Rare Past Drug Use History: None Reported - Past Family History Mother Family Medical History: No Reported History Father Family Medical History: No Reported History Sister(s) Family Medical History: Diabetes Mellitus General Exam - General Exam Comments Initial Comments: PHYSICAL EXAM: General Impression: Alert and oriented x3, not in acute distress HEENT: Normocephalic atraumatic, extra-ocular movements intact, pupils equal and reactive to light bilaterally, mucous membranes moist. Cardiovascular: Heart regular rate and rhythm Chest: Able to complete full sentences, no retractions, no tachypnea Abdomen: abdomen soft, non-tender, non-distended, no organomegaly Musculoskeletal: Pulses present and equal in all extremities, no peripheral edema Motor: no focal deficits noted Neurological: CN II-XII grossly intact, no focal motor or sensory deficits noted Skin: Intact with no visualized rashes Right upper extremity: None. Edema to the right arm mild erythema, no warmth to touch Psych: Normal affect and mood Limitations: no limitations Course Vital Signs 01/12/23 09:28 Temperature 97.9 F Pulse Rate 71 Respiratory 18 Rate Blood Pressure 121/76 O2 Sat by Pulse 95 Oximetry Medical Decision Making - Medical Decision Making Was pt. sent in by a medical professional or institution (, CHRISTOPHER, [facility]OTT[facility] FILLER, urgent care, hospital, or half-way...) When possible be specific @ -No Did you speak to anyone other than the patient for history (EMS, parent, family, police, friend...)? What history was obtained from this source @ -case discussed Beatrice from [facility]. She is part of their nursing staff Did you review nursing and triage notes (agree or disagree)? Why? @ -I reviewed and agree with nursing and triage notes Were old charts reviewed (outside hosp., previous admission, EMS record, old EKG, old radiological studies, urgent care reports/EKG's, half-way records)? Report findings @ -No old charts were reviewed Differential Diagnosis (chest pain, altered mental status, abdominal pain women, abdominal pain men, vaginal bleeding, musculoskeletal, weakness, fever, dyspnea, syncope, headache, dizziness, GI bleed, back pain, seizure, CVA, palpatations, mental health)? @ -not applicable EKG interpreted by me (3pts min.). @ -None done X-rays interpreted by me (1pt min.). @ -None done CT interpreted by me (1pt min.). @ -None done U/S interpreted by me (1pt. min.). @ -None done What testing was considered but not performed or refused? (CT, X-rays, U/S, labs)? Why? @ -None What meds were considered but not given or refused? Why? @ -None Did you discuss the management of the patient with other professionals (professionals i.e. , CHRISTOPHER, BOTTOM FILLER, lab, RT, psych nurse, clinical social work therapist, asphalt paving foreman, teacher, military police officer, case finisher)? Give summary @ -No Was smoking cessation discussed for >3mins.? @ -No Was critical care preformed (if so, how long)? @ -No Were there social determinants of health that impacted care today? How? (Homelessness, low income, unemployed, alcoholism, drug addiction, transportation, low edu. Level, literacy, decrease access to med. care, half-way, rehab)? @ -No Was there de-escalation of care discussed even if they declined (Discuss DNR or withdrawal of care, Hospice)? DNR status @ -No What co-morbidities impacted this encounter? (DM, HTN, Smoking, COPD, CAD, Cancer, CVA, ARF, Chemo, Hep., AIDS, mental health diagnosis, sleep apnea, morbid obesity)? @ -None Was patient admitted / discharged? Hospital course, mention meds given and route, prescriptions, significant lab abnormalities, going to OR and other pertinent info. @ -82-year-old female presents with a bout of urinary retention and redness to the right upper extremity. All signs are stable. Patient has no constitutional symptoms. Laboratory evaluation is unremarkable. Inflammatory markers are negative. Urinalysis negative. Patient able to void. Is not retaining urine. Patient clear for discharge. At this point no indication for antibiotics. Patient encouraged to see lymphedema specialist. Undiagnosed new problem with uncertain prognosis? @ -No Drug Therapy requiring intensive monitoring for toxicity (Heparin, Nitro, Insulin, Cardizem)? @ -No Were any procedures done? @ -No Diagnosis/symptom? Acute, or Chronic, or Acute on Chronic? Uncomplicated (without systemic symptoms) or Complicated (systemic symptoms)? @ -1. Lymphedema Side effects of treatment? @ -No Exacerbation, Progression, or Severe Exacerbation? @ -No Poses a threat to life or bodily function? How? (Chest pain, [place], [place], pneumonia, PE, COPD, DKA, ARF, appy, cholecystitis, CVA, Diverticulitis, Homicidal, Suicidal, threat to staff... and all critical care pts) @ -No - Lab Data Result diagrams: 01/12/23 10:33 01/12/23 10:33 Lab Results 01/12/23 01/12/23 01/12/23 Range/Units 10:33 10:33 11:04 WBC 8.1 (3.8-10.6) k/uL RBC 4.70 (3.80-5.40) m/uL Hgb 13.3 (11.4-16.0) gm/dL Hct 40.2 (34.0-46.0) % MCV 85.5 (80.0-100.0) fL MCH 28.2 (25.0-35.0) pg MCHC 33.0 (31.0-37.0) g/dL RDW 15.9 H (11.5-15.5) % Plt Count 355 (150-450) k/uL MPV 7.6 Neutrophils % 51 % Lymphocytes % 35 % Monocytes % 9 % Eosinophils % 3 % Basophils % 1 % Neutrophils # 4.1 (1.3-7.7) k/uL Lymphocytes # 2.8 (1.0-4.8) k/uL Monocytes # 0.7 (0-1.0) k/uL Eosinophils # 0.3 (0-0.7) k/uL Basophils # 0.1 (0-0.2) k/uL ESR 21 H (0-20) mm/hr Sodium 141 (137-145) mmol/L Potassium 5.1 (3.5-5.1) mmol/L Chloride 106 (98-107) mmol/L Carbon Dioxide 26 (22-30) mmol/L Anion Gap 9 mmol/L BUN 14 (7-17) mg/dL Creatinine 0.42 L (0.52-1.04) mg/dL Est GFR (CKD-EPI)AfAm >90 (>60 ml/min/1.73 sqM) Est GFR (CKD-EPI)NonAf >90 (>60 ml/min/1.73 sqM) Glucose 137 H (74-99) mg/dL Calcium 9.1 (8.4-10.2) mg/dL C-Reactive Protein <0.5 (<1.0) mg/dL Urine Color Light Yellow Urine Appearance Clear (Clear) Urine pH 5.5 (5.0-8.0) Ur Specific [place] 1.009 (1.001-1.035) Urine Protein Negative (Negative) Urine Glucose (UA) Negative (Negative) Urine Ketones Negative (Negative) Urine Blood Negative (Negative) Urine Nitrite Negative (Negative) Urine Bilirubin Negative (Negative) Urine Urobilinogen <2.0 (<2.0) mg/dL Ur Leukocyte Esterase Negative (Negative) Disposition Clinical Impression: Lymphedema Disposition: HOME SELF-CARE Condition: Good Instructions (If sedation given, give patient instructions): Lymphedema (ED) Is patient prescribed a controlled substance at d/c from ED?: No Referrals: Carson Fischer MD [Primary Care Provider] - 1-2 days Time of Disposition: 13:51
[2023-01-12 10:37] LABS: Basophils # (A) 0.1 k/uL (0-0.2); Basophils % (A) 1 %; Eosinophils # (A) 0.3 k/uL (0-0.7); Eosinophils % (A) 3 %; HCT 40.2 % (34.0-46.0); HGB 13.3 gm/dL (11.4-16.0); Lymphocytes # (A) 2.8 k/uL (1.0-4.8); Lymphocytes % (A) 35 %; MCH 28.2 pg (25.0-35.0); MCV 85.5 fL (80.0-100.0); Mean Platelet Volume 7.6; Monocytes # (A) 0.7 k/uL (0-1.0); Monocytes % (A) 9 %; Neutrophils # (A) 4.1 k/uL (1.3-7.7); Neutrophils % (A) 51 %; Platelet Count 355 k/uL (150-450); RDW 15.9 % (11.5-15.5); WBC 8.1 k/uL (3.8-10.6)
[2023-01-12 10:58] LABS: African American GFR (CKD) >90 (>60 ml/min/1.73 sqM); Anion Gap 9 mmol/L; Blood Urea Nitrogen 14 mg/dL (7-17); C Reactive Protein <0.5 mg/dL (<1.0); Calcium 9.1 mg/dL (8.4-10.2); Carbon Dioxide 26 mmol/L (22-30); Chloride 106 mmol/L (98-107); Glucose 137 mg/dL (74-99); Non-African American GFR(CKD) >90 (>60 ml/min/1.73 sqM); Sodium 141 mmol/L (137-145)
[2023-01-12 11:02] LABS: Potassium 5.1 mmol/L (3.5-5.1)
[2023-01-12] MEDS ORDERED: MORPHINE SULFATE 4 MG/ML SYRINGE IV STA (11:13)
[2023-01-12 11:35] LABS: Appearance,Urine Clear (Clear); Bilirubin,Urine Negative (Negative); Blood,Urine Negative (Negative); Color,Urine Light Yellow; Glucose,Urine (UA) Negative (Negative); Ketones,Urine Negative (Negative); Leukocyte Esterase,Urine Negative (Negative); Nitrite,Urine Negative (Negative); PH, Urine 5.5 (5.0-8.0); Protein,Urine Negative (Negative); Specific Gravity,Urine 1.009 (1.001-1.035); Urobilinogen,Urine <2.0 mg/dL (<2.0)
[2023-01-12 13:02] LABS: Erythrocyte Sedimentation Rate 21 mm/hr (0-20)
[2023-01-12] MEDS ORDERED: ACET/COD 300 MG/30 MG STARTER PACK 6 TAB BTL PO STA (14:18)
== END 2023-01-12 16:33 | disposition home or self-care (01) ==
LOC: EC 09:23
DX: I89.0 Lymphedema, not elsewhere classified (principal); E11.9 Type 2 diabetes mellitus without complications; I10 Essential (primary) hypertension; Z79.84 Long term (current) use of oral hypoglycemic drugs; Z79.899 Other long term (current) drug therapy; Z91.030 Bee allergy status; Z88.8 Allergy status to other drugs, medicaments and biological substances
CPT/HCPCS: 36415; 80048; 85652; 85025; 86140; 81003; 99283; 96374; J2270

== ENCOUNTER 2023-04-29 20:14 | Emergency (ER) | payer MEDICARE, OTHER ==
[2023-04-29 20:52] VITALS: RESP 18; TEMP 97.5
--- NOTE | 2023-04-29 20:52 | ED ---
General Adult HPI - General Chief complaint: Extremity Injury, Upper Stated complaint: R Arm Swelling Time Seen by Provider: 04/29/23 20:19 Source: patient, EMS, RN notes reviewed, old records reviewed Mode of arrival: EMS Limitations: no limitations - History of Present Illness Initial comments: 82-year-old female with previous vasectomy with chronic lymphedema right upper extremity presents with worsening swelling. No chest pain or dyspnea. She does report some generalized edema. She is not ambulatory and [facility]. No cough or fever. - Related Data Home Medications Medication Instructions Recorded Confirmed Glucos Sul 2Kcl/MSM/Chond/C/Mn 1 tab PO BID 12/09/19 04/29/23 [Glucosamine Chondroitin Cap] glipiZIDE/METFORMIN HCL 1 tab PO BID 12/09/19 04/29/23 [glipiZIDE/METFORMIN HCL 2.5-500 mg] Metoprolol Tartrate [Lopressor] 12.5 mg PO BID 06/26/20 04/29/23 Potassium Chloride [Potassium 10 meq PO DAILY 06/26/20 04/29/23 Chloride ER] Ascorbic Acid [Vitamin C] 500 mg PO DAILY 09/19/20 04/29/23 Cholecalciferol [Vitamin D3 (25 25 mcg PO DAILY 09/19/20 04/29/23 Mcg = 1000 Iu)] Furosemide [Lasix] 20 mg PO DAILY 09/19/20 04/29/23 Losartan [Cozaar] 50 mg PO DAILY 09/19/20 04/29/23 Tamsulosin [Flomax] 0.4 mg PO DAILY 09/19/20 04/29/23 Zinc 50 mg PO DAILY 09/19/20 04/29/23 amLODIPine [Norvasc] 10 mg PO DAILY 09/29/22 04/29/23 Multivitamins, Thera [Multivitamin 1 tab PO DAILY 01/12/23 04/29/23 (formulary)] Nystatin 100,000Unit/gm Cream 1 applic TOPICAL BID 01/12/23 04/29/23 [Mycostatin Cream] Acetaminophen Tab [Tylenol] 650 mg PO Q6H PRN 04/29/23 04/29/23 Acetaminophen-Codeine 300-30mg 1 tab PO Q6H PRN 04/29/23 04/29/23 [Tylenol w/codeine #3] Diclofenac Sodium Gel [Voltaren 1% 2 gm TOPICAL QID 04/29/23 04/29/23 Gel] Fish Oil/Dha/Epa [Fish Oil 1,200 1 cap PO DAILY 04/29/23 04/29/23 mg Fish Oil] Previous Rx's Medication Instructions Recorded Atorvastatin [Lipitor] 40 mg PO HS #30 tab 06/23/20 Gabapentin [Neurontin] 400 mg PO BID #6 cap 09/29/22 traMADol HCl [Ultram] 50 mg PO TID #6 tab 09/29/22 Allergies Allergy/AdvReac Type Severity Reaction Status Date / Time bee venom protein (honey bee) Allergy Severe Swelling Verified 04/29/23 21:40 ampicillin Allergy Rash/Hives Verified 04/29/23 21:40 Review of Systems ROS Statement: Those systems with pertinent positive or pertinent negative responses have been documented in the HPI. ROS Other: All systems not noted in ROS Statement are negative. Past Medical History Past Medical History: Cancer, Diabetes Mellitus, Hypertension, Pneumonia Additional Past Medical History / Comment(s): Left breast History of Any Multi-Drug Resistant Organisms: None Reported Past Surgical History: Adenoidectomy, Breast Surgery, Hysterectomy, Orthopedic Surgery, Tonsillectomy Additional Past Surgical History / Comment(s): partial hysterectomy. right total hip replacement Past Anesthesia/Blood Transfusion Reactions: No Reported Reaction Past Psychological History: No Psychological Hx Reported Smoking Status: Never smoker Past Alcohol Use History: Rare Past Drug Use History: None Reported - Past Family History Mother Family Medical History: No Reported History Father Family Medical History: No Reported History Sister(s) Family Medical History: Diabetes Mellitus General Exam Limitations: no limitations General appearance: alert, in no apparent distress Head exam: Present: atraumatic, normocephalic ENT exam: Present: normal exam Neck exam: Present: normal inspection Respiratory exam: Present: normal lung sounds bilaterally. Absent: respiratory distress, wheezes Cardiovascular Exam: Present: regular rate, normal rhythm GI/Abdominal exam: Present: soft. Absent: distended, tenderness, guarding Extremities exam: Present: other (Right upper extremity pitting edema, pulses intact) Neurological exam: Present: alert, oriented X3, CN II-XII intact. Absent: motor sensory deficit Skin exam: Present: warm, dry, intact. Absent: cyanosis, diaphoretic Course Vital Signs 04/29/23 04/29/2323 20:24 20:30 21:18 Temperature 97.5 F L Pulse Rate 69 65 95 Respiratory 18 18 18 Rate Blood Pressure 129/56 129/56 111/56 O2 Sat by Pulse 96 96 64 L Oximetry Medical Decision Making - Medical Decision Making Was pt. sent in by a medical professional or institution (CHRISTOPHER Dobbs, STEAMBOAT INSPECTOR, urgent care, hospital, or prison...) When possible be specific @ -No Did you speak to anyone other than the patient for history (EMS, parent, family, police, friend...)? What history was obtained from this source @ -No Did you review nursing and triage notes (agree or disagree)? Why? @ -I reviewed and agree with nursing and triage notes Were old charts reviewed (outside hosp., previous admission, EMS record, old EKG, old radiological studies, urgent care reports/EKG's, prison records)? Report findings @ -No old charts were reviewed Differential Diagnosis (chest pain, altered mental status, abdominal pain women, abdominal pain men, vaginal bleeding, weakness, fever, dyspnea, syncope, headache, dizziness, GI bleed, back pain, seizure, CVA, palpatations, mental health, musculoskeletal)? @ -[Cellulitis, DVT, lymphedema EKG interpreted by me (3pts min.). @ -As above X-rays interpreted by me (1pt min.). @ -None done CT interpreted by me (1pt min.). @ -None done U/S interpreted by me (1pt. min.). @ Ultrasound negative for DVT What testing was considered but not performed or refused? (CT, X-rays, U/S, labs)? Why? @ -None What meds were considered but not given or refused? Why? @ -None Did you discuss the management of the patient with other professionals (professionals i.e. CHRISTOPHER Dobbs, STEAMBOAT INSPECTOR, lab, RT, psych nurse, social science research assistant, riverine assault craft crewman, teacher, education officer, case making machine operator)? Give summary @ -No Was smoking cessation discussed for >3mins.? @ -No Was critical care preformed (if so, how long)? @ -No Were there social determinants of health that impacted care today? How? (Homelessness, low income, unemployed, alcoholism, drug addiction, transportation, low edu. Level, literacy, decrease access to med. care, residential, rehab)? @ -No Was there de-escalation of care discussed even if they declined (Discuss DNR or withdrawal of care, Hospice)? DNR status @ -No What co-morbidities impacted this encounter? (DM, HTN, Smoking, COPD, CAD, Cancer, CVA, ARF, Chemo, Hep., AIDS, mental health diagnosis, sleep apnea, morbid obesity)? @ -Lymphedema Was patient admitted / discharged? Hospital course, mention meds given and route, prescriptions, significant lab abnormalities, going to OR and other pertinent info. @ Patient is instructed to wear her compression sleeve and elevate the extremity. She will monitor for erythema, monitor for fever. Stable for discharge at this time. Undiagnosed new problem with uncertain prognosis? @ -No Drug Therapy requiring intensive monitoring for toxicity (Heparin, Nitro, Insulin, Cardizem)? @ -No Were any procedures done? @ -No Diagnosis/symptom? @ -[Lymphedema Acute, or Chronic, or Acute on Chronic? @ -[Acute on chronic Uncomplicated (without systemic symptoms) or Complicated (systemic symptoms)? @ -default Side effects of treatment? @ -No Exacerbation, Progression, or Severe Exacerbation? @ -No Poses a threat to life or bodily function? How? (Chest pain, [place], [place], pneumonia, PE, COPD, DKA, ARF, appy, cholecystitis, CVA, Diverticulitis, Homicidal, Suicidal, threat to staff... and all critical care pts) @ -No Disposition Clinical Impression: Lymphedema Disposition: HOME SELF-CARE Condition: Fair Instructions (If sedation given, give patient instructions): Lymphedema (ED) Is patient prescribed a controlled substance at d/c from ED?: No Referrals: Carson Fischer MD [Primary Care Provider] - 1-2 days Time of Disposition: 22:17
[2023-04-29] MEDS ORDERED: HYDROcodone/APAP 5-325MG 1 EACH TAB PO STA (21:11)
--- NOTE | 2023-04-29 21:56 | US ---
EXAMINATION TYPE: US venous doppler duplex UE RT DATE OF EXAM: 04/29/2023 COMPARISON: NONE CLINICAL INDICATION: Female, 82 years old with history of swelling; H/O breast CA with 22 lymph node resection on the right, swelling and pink arm today with wrist pain, no h/o dvt SIDE PERFORMED: Right Right Arm: Negative for DVT Grayscale, color doppler, spectral doppler imaging performed of the deep veins of the right upper ext remity. There is normal flow, compressibility and vascular waveforms. Moderate subcutaneous edema at the level of the basilic and ulnar veins in the forearm is noted. IMPRESSION: No ultrasound evidence for acute deep or superficial venous thrombosis in the right upper extremity
[2023-04-29 23:00] VITALS: BP 122/48; PULSE 69
== END 2023-04-30 00:08 | disposition home or self-care (01) ==
LOC: EC 20:14
DX: I89.0 Lymphedema, not elsewhere classified (principal); E11.9 Type 2 diabetes mellitus without complications; I10 Essential (primary) hypertension; Z91.030 Bee allergy status; Z88.0 Allergy status to penicillin; Z79.84 Long term (current) use of oral hypoglycemic drugs; Z79.899 Other long term (current) drug therapy
CPT/HCPCS: 99284